=== PATIENT | female | born 1965 | race Caucasian/White ===

== ENCOUNTER 2017-03-18 13:51 | Emergency (ER) | payer MEDICAID, SELFPAY | END 2017-03-18 15:17 | disposition home or self-care (01) | PROVIDERS: Emergency Provider Nurse Practitioner Family; Family Provider Emergency Medicine; Visit Provider Nurse Practitioner Family | DX: J10.1 Influenza due to other identified influenza virus with other respiratory manifestations (principal); F17.210 Nicotine dependence, cigarettes, uncomplicated; K21.9 Gastro-esophageal reflux disease without esophagitis; I10 Essential (primary) hypertension; E78.5 Hyperlipidemia, unspecified; J45.909 Unspecified asthma, uncomplicated | CPT/HCPCS: 87804; 99201 ==

== ENCOUNTER 2017-05-11 08:31 | Emergency (ER) | payer MEDICAID, SELFPAY ==
[2017-05-11 08:43] VITALS: BMI 36.6
[2017-05-11 08:52] VITALS: BP 141/84; PULSE 96; RESP 18; TEMP 37; O2SAT 96; BMI 36.6
--- NOTE | 2017-05-11 08:56 | XR_ITS ---
XR chest 2V HISTORY: ITS.REASON: cough and soa ORDERING PHYSICIAN: Tabitha Dowd MD PATIENT AGE: 51 years COMPARISON: 10/08/16 FINDINGS: The cardiomediastinal silhouette and pulmonary vascularity are within normal limits. The lungs are clear without infiltrates, suspicious nodules, or pleural effusions. The right hemidiaphragm is slightly elevated nonspecific. No acute bony abnormalities. IMPRESSION: No acute finding
[2017-05-11 09:00] VITALS: PULSE 90; PULSE 92; O2SAT 95
[2017-05-11 10:05] LABS: Strep Scrn Group A (Rapid) Negative (Negative)
--- NOTE | 2017-05-11 10:29 | PC.NURSE ---
lab at bedside
[2017-05-11 10:46] LABS: Basophils # 0.1 K/mm3 (0-0.2); Basophils % 0.7 % (0.1-2.0); Eosinophils # 0.4 K/mm3 (0.0-0.4); Eosinophils % 5.9 % (0.1-12.0); Hematocrit 40.3 % (37.0-47.0); Hemoglobin 13.3 g/dL (12.2-16.2); Lymphocytes # 1.6 K/mm3 (0.7-4.5); Lymphocytes % 22.3 K/mm3 (10-50); Mean Corpuscular HGB Conc 32.9 g/dL (31.8-35.4); Mean Corpuscular Hemoglobin 28.1 pg (27.0-31.2); Mean Corpuscular Volume 85.3 fl (81-99); Mean Platelet Volume 8.4 fl (7.4-10.4); Monocytes # 0.3 K/mm3 (0.1-1.0); Monocytes % 4.4 % (1.7-9.3); Neutrophils # 4.9 K/mm3 (1.8-7.8); Neutrophils % 66.6 % (37.0-80.0); Platelet Count 258 K/mm3 (142-424); Red Blood Count 4.73 M/mm3 (4.20-5.40); Red Cell Distribution Width 13.7 % (11.5-17.5); White Blood Count 7.3 K/mm3 (4.8-10.8)
[2017-05-11 11:03] LABS: Alanine Aminotransferase 23 U/L (12-78); Albumin Level 3.5 gm/dL (3.4-5.0); Alkaline Phosphatase 104 U/L (46-116); Anion Gap 13.6 mEq/L (5-15); Aspartate Amino Transferase 9 U/L (15-37); Bilirubin,Total 0.2 mg/dL (0.2-1.0); Blood Urea Nitrogen 13 mg/dL (7-18); Calcium 8.8 mg/dL (8.5-10.1); Carbon Dioxide 28 mmol/L (21.0-32.0); Chloride 105 mmol/L (98-107); Creatinine Clearance Estimated 158 mL/min (0-300); Creatinine,Serum 0.59 mg/dL (0.55-1.02); Estimated Glomerular Filt Rate 107 ml/min (>60); GFR (African American) 129 ML/MIN (>60); Globulin 3.6 gm/dl (1.3-3.2); Glucose 97 mg/dL (74-106); Potassium 3.6 mmoL/L (3.5-5.1); Sodium 143 mmol/L (136-145); Total Protein,Serum 7.1 gm/dL (6.4-8.2); Troponin I < 0.02 ng/ml (0.00-0.06)
--- NOTE | 2017-05-11 11:50 | HMH.EDSOB ---
ED Disposition Clinical Impression: COPD exacerbation Disposition: Home, Self-Care Condition on Discharge: Good Additional Instructions: 1- avoid smoke , smoking and smokers. 2- use combivent inhaler. 3- medrol dose pack 4- tessalon peals. 5- pepcid 6- bactrim DS po BID. 7- you lie 2 blocks away feel free to return any time. Dr. Dowd Referrals: David Montes MD [Primary Care Provider] - - Critical Care Critical Care Time: No Attestation: On 05/11/17, the high probability of a clinically significant, sudden or life threatening deterioration of the following system(s) required my full and direct attention, intervention and personal management. The time I documented below is in addition to time spent performing reported procedures but includes the following listed in this critical care notation. Medical Decision Making - Medical Records Medical records reviewed: Yes: I reviewed the patient's medical records. Vital Signs: 05/11/17 08:52 05/11/17 09:00 Temperature 98.6 F Temperature Source Oral Pulse Rate 92 H Pulse Rate [Left] 96 H Respiratory Rate 18 Blood Pressure [Left Arm] 141/84 Blood Pressure Mean [Left Arm] 103 Blood Pressure Source [Left Arm] Automatic Cuff Blood Pressure Position [Left Arm] Supine 02 Sat by Pulse Oximetry 96 95 Oxygen Delivery Method Room Air Room Air - Lab Data Lab Results 05/11/17 08:52: Influenza Type A Ag Negative, Influenza Type B Ag Negative 05/11/17 09:30: Group A Strep Rapid Negative 05/11/17 10:29: WBC 7.3, RBC 4.73, Hgb 13.3, Hct 40.3, MCV 85.3, MCH 28.1, MCHC 32.9, RDW 13.7, Plt Count 258, MPV 8.4, Neut % (Auto) 66.6, Lymph % (Auto) 22.3, [place] % (Auto) 4.4, Eos % (Auto) 5.9, Baso % (Auto) 0.7, Neut # (Auto) 4.9, Lymph # (Auto) 1.6, [place] # (Auto) 0.3, Eos # (Auto) 0.4, Baso # (Auto) 0.1 05/11/17 10:29: Sodium 143, Potassium 3.6, Chloride 105, Carbon Dioxide 28, Anion Gap 13.6, BUN 13, Creatinine 0.59, Estimated Creat Clear 158, Estimated GFR 107, Est GFR ( Amer) 129, Glucose 97, Calcium 8.8, Total Bilirubin 0.2, AST 9 L, ALT 23, Alkaline Phosphatase 104, Troponin I < 0.02, Total Protein 7.1, Albumin 3.5, Globulin 3.6 H, Albumin/Globulin Ratio 1.0 L Result diagrams: 05/11/17 10:29 05/11/17 10:29 Orders (Tests/Meds): ED MEDICATIONS Generic Name Dose Route Start Last Admin Trade Name Freq PRN Reason Stop Dose Admin Albuterol/Ipratropium 3 ml 05/11/17 09:00 Duoneb 3ml [facility] 06/10/17 08:59 Q1H HEVER Discontinued Medications Generic Name Dose Route Start Last Admin Trade Name Freq PRN Reason Stop Dose Admin Albuterol/Ipratropium 3 ml 05/11/17 08:47 05/11/17 09:00 Duoneb 3ml [facility] 05/11/17 08:48 3 ml ONCE ONE Administration Famotidine 20 mg 05/11/17 08:56 05/11/17 10:25 Pepcid 20mg/2ml Vial IV 05/11/17 08:57 20 mg ONCE ONE Administration Methylprednisolone Sodium Succinate 125 mg 05/11/17 08:56 05/11/17 10:25 Solu-Medrol 125mg/2ml Vial IV 05/11/17 08:57 125 mg ONCE ONE Administration Sodium Chloride 10 ml 05/11/17 09:24 Saline Flush 10ml Syringe IV 05/11/17 09:25 ONCE ONE ORDERS Category Date Time Status Strep Screen Confirmation Stat Micro 05/11/17 09:30 Received - Radiology Data #1 Image(s): Chest Image Reviewed: Yes I reviewed the patient's radiology results, Yes I reviewed the patient's radiology image, Yes I have reviewed radiologist's interpretation Preliminary Findings: Normal/NAD - Antoni Inquiry Pt receiving controlled substance: No Antoni was queried for this patient: No Medical Decision Making Narrative: After the patient was given her steroids and DuoNeb she better. With her labs within normal limits and her chest x-ray was negative she opted for outpatient treatment. Resp/SOB HPI - General Chief Complaint: Shortness of Breath/Dyspnea Stated Complaint: SOA Mode of Arrival: Ambulatory Limitation
--- NOTE | 2017-05-11 11:53 | ED_ITS ---
ED Disposition Clinical Impression: COPD exacerbation Disposition: Home, Self-Care Condition on Discharge: Good Additional Instructions: 1- avoid smoke , smoking and smokers. 2- use combivent inhaler. 3- medrol dose pack 4- tessalon peals. 5- pepcid 6- bactrim DS po BID. 7- you lie 2 blocks away feel free to return any time. Dr. Dowd Referrals: David Montes MD [Primary Care Provider] - - Critical Care Critical Care Time: No Attestation: On 05/11/17, the high probability of a clinically significant, sudden or life threatening deterioration of the following system(s) required my full and direct attention, intervention and personal management. The time I documented below is in addition to time spent performing reported procedures but includes the following listed in this critical care notation. Medical Decision Making - Medical Records Medical records reviewed: Yes: I reviewed the patient's medical records. Vital Signs: 05/11/17 08:52 05/11/17 09:00 Temperature 98.6 F Temperature Source Oral Pulse Rate 92 H Pulse Rate [Left] 96 H Respiratory Rate 18 Blood Pressure [Left Arm] 141/84 Blood Pressure Mean [Left Arm] 103 Blood Pressure Source [Left Arm] Automatic Cuff Blood Pressure Position [Left Arm] Supine 02 Sat by Pulse Oximetry 96 95 Oxygen Delivery Method Room Air Room Air - Lab Data Lab Results 05/11/17 08:52: Influenza Type A Ag Negative, Influenza Type B Ag Negative 05/11/17 09:30: Group A Strep Rapid Negative 05/11/17 10:29: WBC 7.3, RBC 4.73, Hgb 13.3, Hct 40.3, MCV 85.3, MCH 28.1, MCHC 32.9, RDW 13.7, Plt Count 258, MPV 8.4, Neut % (Auto) 66.6, Lymph % (Auto) 22.3 , [place] % (Auto) 4.4, Eos % (Auto) 5.9, Baso % (Auto) 0.7, Neut # (Auto) 4.9, Lymph # (Auto) 1.6, [place] # (Auto) 0.3, Eos # (Auto) 0.4, Baso # (Auto) 0.1 05/11/17 10:29: Sodium 143, Potassium 3.6, Chloride 105, Carbon Dioxide 28, Anion Gap 13.6, BUN 13, Creatinine 0.59, Estimated Creat Clear 158, Estimated GFR 107, Est GFR ( Amer) 129, Glucose 97, Calcium 8.8, Total Bilirubin 0.2, AST 9 L, ALT 23, Alkaline Phosphatase 104, Troponin I < 0.02, Total Protein 7.1, Albumin 3.5, Globulin 3.6 H, Albumin/Globulin Ratio 1.0 L Result diagrams: 05/11/17 10:29 05/11/17 10:29 Orders (Tests/Meds): ED MEDICATIONS Generic Name Dose Route Start Last Admin Trade Name Freq PRN Reason Stop Dose Admin Albuterol/Ipratropium 3 ml 05/11/17 09:00 Duoneb 3ml Neb 06/10/17 08:59 Q1H HEVER Discontinued Medications Generic Name Dose Route Start Last Admin Trade Name Freq PRN Reason Stop Dose Admin Albuterol/Ipratropium 3 ml 05/11/17 08:47 05/11/17 09:00 Duoneb 3ml Neb 05/11/17 08:48 3 ml ONCE ONE Administration Famotidine 20 mg 05/11/17 08:56 05/11/17 10:25 Pepcid 20mg/2ml Vial IV 05/11/17 08:57 20 mg ONCE ONE Administration Methylprednisolone Sodium Succinate 125 mg 05/11/17 08:56 05/11/17 10:25 Solu-Medrol 125mg/2ml Vial IV 05/11/17 08:57 125 mg ONCE ONE Administration Sodium Chloride 10 ml 05/11/17 09:24 Saline Flush 10ml Syringe IV 05/11/17 09:25 ONCE ONE ORDERS Category Date Time Status Strep Screen Conf
[2017-05-11 12:32] VITALS: BP 147/78; PULSE 84; RESP 18; TEMP 37.1; O2SAT 98
--- NOTE | 2017-05-11 12:34 | PC.NURSE ---
staff were unable to start iv after several attempts x 3 staff. meds given IM with OK from Dr. Dowd
== END 2017-05-11 12:34 | disposition home or self-care (01) ==
PROVIDERS: Emergency Provider Emergency Medicine; Family Provider Emergency Medicine; PCP Emergency Medicine
DX: J44.1 Chronic obstructive pulmonary disease with (acute) exacerbation (principal)
CPT/HCPCS: 71046; 80053; 84484; 85025; 87275; 87276; 87430; 96372; 99282

== ENCOUNTER 2017-06-20 17:57 | Emergency (ER) | payer MEDICAID, SELFPAY ==
[2017-06-20 18:05] VITALS: BP 153/76; PULSE 91; RESP 20; TEMP 37.4; O2SAT 93; BMI 36.6
--- NOTE | 2017-06-20 18:12 | XR_ITS ---
XR chest 2V HISTORY: ITS.REASON: COUGHING, FEVER ORDERING PHYSICIAN: Danny Calero PATIENT AGE: 51 years COMPARISON: 05/11/2017 FINDINGS: The cardiomediastinal silhouette and pulmonary vascularity are within normal limits. The lungs are clear without infiltrates, suspicious nodules, or pleural effusions. No acute bony abnormalities. IMPRESSION: Negative chest, no acute finding
[2017-06-20 18:14] LABS: UTC Influenza A Antigen Negative (Negative); UTC Influenza B Antigen Positive (Negative)
--- NOTE | 2017-06-20 18:34 | HMH.EDUTC ---
[facility] [place] Disposition Clinical Impression: Influenza B Disposition: Home, Self-Care Condition on Discharge: Good Instructions: DI for Influenza -- Adult Additional Instructions: * Start Tamiflu today if you are going to take it. Discussed risks, side effects, risk of allergic reaction, and possible benefits. We even discussed hallucinations and uncontrollable fevers. still wants tamiflu. Encouraged to monitor closely.. * Lots of rest * Inhaler every 4-6 hours as needed like we discussed. Should help open airways and improve cough, wheezing, due to your asthma and influenza. * Increase fluids, water, gatorade, powerade, pedialyte if /toddler/child * Monitor Temp. Tylenol every 4 hours as needed no more then 5 times a day or 4000mg in 24 hours and/or ibuprofen every 6 hours as needed no more then 3200mg in 24 hours (as long as your primary care doctor has told you that it is ok to take both) for fever/aches/pain. ER if fever no less than 101 despite tylenol and Ibuprofen * OTC cold/flu/sinus medication is ok but pick one. Coriciden HBP is the best/safest one to choose due to your high blood pressure. Do not take multiple different ones as they have similar ingredients and you can overdose on cold medication. * You (or your child) are contagious until no fever, aches, chills x 24 hours without medication for symptoms. Prescriptions: Albuterol Sulfate [Albuterol HFA Inhaler] 1 - 2 puffs IH Q4-6H PRN #1 inh PRN Reason: Shortness Of Breath Or Wheezing Oseltamivir Phosphate [Tamiflu 75mg Capsule] 75 mg PO BID #10 cap Referrals: David Montes MD [Primary Care Provider] - (Follow up IMMEDIATELY for new or worsening symptoms, improvement followed by suddenly feeling worse OR no noticeable improvement over the next 48-72 hours. 911 for difficulty breathing ) Forms: Work/School Release Time of Disposition: 18:54 Medical Decision Making - Antoni Inquiry Pt receiving controlled substance: No Vital Signs: 06/20/17 18:05 06/20/17 18:50 Temperature 99.3 F 99.3 F Temperature Source Temporal Artery Scan Pulse Rate 91 H Pulse Rate [Brachial] 91 H Respiratory Rate 20 20 Blood Pressure 153/76 Blood Pressure [Right Arm] 153/76 Blood Pressure Mean [Right Arm] 101 Blood Pressure Source [Right Arm] Automatic Cuff Blood Pressure Position [Right Arm] Sitting 02 Sat by Pulse Oximetry 93 L Oxygen Delivery Method Room Air - Lab Data Lab results reviewed: Yes: I reviewed the patient's lab results. Lab Results 06/20/17 18:06: Influenza Type A Ag Negative, Influenza Type B Ag Positive A Orders (Tests/Meds): ORDERS Category Date Time Status Chest XR 2 view (NOT portable) [XR chest 2V] Stat Exams 06/20/17 18:12 Taken [facility] [place] HPI - General Stated complaint: sore throat,body pain Time Seen by Provider: 06/20/17 18:10 Mode of Arrival: Ambulatory Source of Information: Patient Limitations: No Limitations Description of Symptoms (Recalled from Triage Doc. by RN): FEVER, COUGHING BAD, NAUSEATED 2-3 DAYS. WHEEZING IS NOTED. HEENT Symptoms (Recalled from RN notes): Yes Resp Symptoms (Recalled from RN notes): Yes Skin Symptoms (Recalled from RN notes): No MS Symptoms (Recalled from RN notes): No Functional Status (Recalled from RN notes): NA - History of Present Illness Provider Complaint: Here w/ spouse due to not feeling well. Fever, nonprod cough, nausea, aches, chills starting yesterday. Worse today. Wheezing intermittently but hx of asthma (sees Dr. harvey) and has been out of albuterol x weeks. Using breo as prescribed. Hasn't taken or tried anything else for symptoms. - Related Data Home Medications Medication Instructions Recorded Confirmed Albuterol Sulfate [Albuterol HFA 1 - 2 puffs IH Q4-6H PRN 05/11/17 06/20/17 Inhaler] Amlodipine Besylate [Norvasc 10mg 10 mg PO DAILY 05/11/17 06/20/17 tablet] Lisinopril/Hydrochlorothiazide 1 tab PO DAILY 05/11/17 06/20/17 [Lisinopril-Hctz 10-
[2017-06-20 18:50] VITALS: BP 153/76; PULSE 91; RESP 20; TEMP 37.4
== END 2017-06-20 18:55 | disposition home or self-care (01) ==
PROVIDERS: Emergency Provider Nurse Practitioner Family; Family Provider Emergency Medicine; PCP Emergency Medicine
DX: J11.1 Influenza due to unidentified influenza virus with other respiratory manifestations (principal); I10 Essential (primary) hypertension; J45.909 Unspecified asthma, uncomplicated
CPT/HCPCS: 71046; 87804; 99202

== ENCOUNTER → 2017-06-29 08:03 | Outpatient (CLI) | payer MEDICAID, SELFPAY ==
[2017-06-29 08:33] LABS: Basophils # 0.1 K/mm3 (0-0.2); Eosinophils # 0.4 K/mm3 (0.0-0.4); Eosinophils % 5.2 % (0.1-12.0); Hematocrit 41.2 % (37.0-47.0); Hemoglobin 13.1 g/dL (12.2-16.2); Lymphocytes # 1.9 K/mm3 (0.7-4.5); Lymphocytes % 26.2 K/mm3 (10-50); Mean Corpuscular HGB Conc 31.9 g/dL (31.8-35.4); Mean Corpuscular Hemoglobin 27.8 pg (27.0-31.2); Mean Corpuscular Volume 87.1 fl (81-99); Mean Platelet Volume 7.9 fl (7.4-10.4); Monocytes # 0.4 K/mm3 (0.1-1.0); Monocytes % 5.9 % (1.7-9.3); Neutrophils # 4.6 K/mm3 (1.8-7.8); Neutrophils % 61.7 % (37.0-80.0); Platelet Count 348 K/mm3 (142-424); Red Blood Count 4.72 M/mm3 (4.20-5.40); Red Cell Distribution Width 13.7 % (11.5-17.5); White Blood Count 7.4 K/mm3 (4.8-10.8)
[2017-06-29 09:14] LABS: Alanine Aminotransferase 18 U/L (12-78); Albumin Level 3.4 gm/dL (3.4-5.0); Albumin/Globulin Ratio 1.1 (1.1-1.8); Alkaline Phosphatase 92 U/L (46-116); Anion Gap 10.8 mEq/L (5-15); Aspartate Amino Transferase 12 U/L (15-37); Bilirubin,Total 0.2 mg/dL (0.2-1.0); Blood Urea Nitrogen 17 mg/dL (7-18); Calcium 8.9 mg/dL (8.5-10.1); Carbon Dioxide 29 mmol/L (21.0-32.0); Chloride 106 mmol/L (98-107); Chol/HDL Ratio 5.2 (1-3.5); Cholesterol 223 mg/dL (140-200); Creatinine,Serum 0.63 mg/dL (0.55-1.02); Estimated Glomerular Filt Rate 99 ml/min (>60); Free T4 (Free Thyroxine) 1.15 ng/dl (0.76-1.46); GFR (African American) 120 ML/MIN (>60); Globulin 3.2 gm/dl (1.3-3.2); Glucose 113 mg/dL (74-106); HDL Cholesterol 43 mg/dL (29-89); LDL Cholesterol 129 mg/dL (0-130); Potassium 3.8 mmoL/L (3.5-5.1); Sodium 142 mmol/L (136-145); Thyroid Stimulating Hormone 1.85 uIU/ml (0.358-3.740); Total Protein,Serum 6.6 gm/dL (6.4-8.2); Triglycerides 257 mg/dL (30-200); VLDL Cholesterol 51 mg/dL (0-40)
[2017-07-03 02:06] LABS: 1,25-Dihydroxy, Vitamin D-2 <10 pg/mL (.)
[2017-07-03 03:38] LABS: 1,25 Dihydroxy Vitamin D 62 pg/mL (.); 1,25-Dihydroxy, Vitamin D-3 61 pg/mL (.)
== END ==
PROVIDERS: PCP Nurse Practitioner Family; Visit Provider Nurse Practitioner Family
DX: R53.83 Other fatigue (principal)
CPT/HCPCS: 36415; 80053; 80061; 82652; 84439; 84443; 85025

== ENCOUNTER → 2017-07-11 14:38 | Outpatient (POV) | payer MEDICAID, SELFPAY | PROVIDERS: Visit Provider Internal Medicine | DX: Z00.00 Encounter for general adult medical examination without abnormal findings (principal) ==

== ENCOUNTER → 2018-01-23 08:56 | Outpatient (POV) | payer MEDICAID, SELFPAY | PROVIDERS: Visit Provider Internal Medicine | DX: Z00.00 Encounter for general adult medical examination without abnormal findings (principal) ==

== ENCOUNTER → 2018-08-23 09:17 | Outpatient (CLI) | payer MEDICAID, SELFPAY ==
--- NOTE | 2018-08-23 09:24 | XR_ITS ---
XR shoulder LT min 2V HISTORY: Shoulder pain ITS.REASON: grashy, axillary and supraspinatus views ORDERING PHYSICIAN: Jerzy Saba MD PATIENT AGE: 53 years Comparison: None FINDINGS: There is mild subacromial stenosis with some minimal cortical irregularity involving the greater tuberosity which may be seen with rotator cuff disease. No fracture or dislocation. Small area of sclerosis is present in the mid aspect of the scapula laterally. IMPRESSION: Mild subacromial stenosis with cortical irregularity of the greater tuberosity which may be seen with rotator cuff disease
== END ==
PROVIDERS: PCP Emergency Medicine; Visit Provider Orthopaedic Surgery
DX: M25.512 Pain in left shoulder (principal)
CPT/HCPCS: 73030

== ENCOUNTER → 2018-08-31 08:15 | Outpatient (CLI) | payer MEDICAID, SELFPAY ==
--- NOTE | 2018-08-31 08:17 | MR_ITS ---
MR shoulder LT wo con HISTORY:Left arm weakness, pain, limited range of motion ITS.REASON: evaluate for rotator cuff tear ORDERING PHYSICIAN: Jerzy Saba MD PATIENT AGE: 53 years Comparison: 08/23/2018 TECHNIQUE: Standard multiplanar multiecho sequences are performed without contrast. FINDINGS: Study is somewhat limited due to patient body habitus and decreased [id number] ratio. There is full-thickness tear of the supraspinatus tendon. There may be some intact fibers of the tendon posteriorly. The bulk of the tendon however does show full-thickness tear. No significant retraction of the musculotendinous fibers. There is subacromial stenosis with low-lying acromion. Small amount fluid is present in the subdeltoid region. There is some irregularity head which can be seen with chronic rotator cuff disease. The infraspinatus tendon does appear intact. The subscapularis and teres minor tendons have an unremarkable appearance. There is tendinopathy/tendinosis of the infraspinatus tendon. Bicipital tendon does appear place. No obvious labral tears. IMPRESSION: There is full-thickness tear and possibly a complete tear of the supraspinatus tendon there may be a few intact fibers posteriorly. There is a low-lying acromion. Tendinopathy/tendinosis of the infraspinatus tendon
== END ==
PROVIDERS: PCP Emergency Medicine; Visit Provider Orthopaedic Surgery
DX: M25.512 Pain in left shoulder (principal)
CPT/HCPCS: 73221

== ENCOUNTER → 2018-10-16 14:11 | Outpatient (POV) | payer MEDICAID, SELFPAY | PROVIDERS: Visit Provider Internal Medicine | DX: Z00.00 Encounter for general adult medical examination without abnormal findings (principal) ==

== ENCOUNTER → 2019-05-15 16:11 | Outpatient (CLI) | payer MEDICAID, SELFPAY ==
--- NOTE | 2019-05-15 16:11 | MM_ITS ---
PROCEDURE: MM DIG SCREENING MAMM BI W/CAD CLINICAL INDICATION: screening There is no personal or family history of breast cancer. COMPARISON: No exams were available for comparison TECHNIQUE: Standard CC and MLO images and 3D Tomosynthesis was obtained. R2 CAD reviewed. FINDINGS: Minimal scattered fibroglandular densities are seen in both breast on a background of fatty breast parenchyma. There is a tiny asymmetric nodular density lower outer quadrant left breast with smooth borders. This has benign features. Since this is a baseline study recommend the patient return for six-month follow-up mammogram left breast to evaluate for interval stability. There are no suspicious microcalcifications. There are fatty replaced nodes in both axilla. IMPRESSION: Fibrofatty parenchyma with small benign-appearing asymmetric density left breast BI-RAD Category: 3 Probably Benign Finding Short Term Follow-up FOLLOW-UP: 6M 6Month Follow-up (A letter has been sent to the patient regarding results of the study.) Dictated by: Dr. Jaxon Tavarez MD 05/16/2019 12:[address] Jaxon Tavarez MD in [place] 05/16/2019 12:22
== END ==
PROVIDERS: PCP Emergency Medicine; Visit Provider Emergency Medicine
DX: Z12.31 Encounter for screening mammogram for malignant neoplasm of breast (principal)
CPT/HCPCS: 77063; 77067

== ENCOUNTER 2019-07-09 10:30 | Emergency (ER) | payer MEDICAID, SELFPAY ==
[2019-07-09 10:41] VITALS: BP 157/98; PULSE 98; RESP 24; TEMP 36.9; O2SAT 96; BMI 40.2
--- NOTE | 2019-07-09 10:47 | XR_ITS ---
PROCEDURE: XR CHEST 2V CLINICAL HISTORY: sob Shortness of breath COMPARISON: CXR2V XR chest 2V from 05/11/2017 CXR2V XR chest 2V from 06/20/2017 XR CHEST 2V from 04/29/2019 FINDINGS: The cardiomediastinal silhouette and pulmonary vascularity are within normal limits. The lungs are clear without infiltrates, suspicious nodules, or pleural effusions. No acute bony abnormalities. IMPRESSION: No acute findings. Dictated by: Pietro Costa MD 07/09/2019 11:28 Electronically signed by Pietro Costa MD in [place] 07/09/2019 11:28
--- NOTE | 2019-07-09 10:53 | HMH.EDUTC ---
[facility] [place] Disposition Clinical Impression: Asthma with exacerbation Qualifiers: Asthma severity: mild Asthma persistence: unspecified Qualified Code(s): J45.901 - Unspecified asthma with (acute) exacerbation Disposition: Home, Self-Care Condition on Discharge: Good Instructions: Asthma -- Adult, DI for Asthma -- Adult Additional Instructions: Use Nebulizer as prescribed at home along with your inhaler *Try to avoid known allergy/asthma triggers Return if needed Straight to ER if any life threatening symptoms Follow up with PCP if symptoms persist or worsen in the next 48-72 hours Referrals: David Montes MD [Primary Care Provider] - As needed Time of Disposition: 11:33 Medical Decision Making - Antoni Inquiry Pt receiving controlled substance: No Antoni was queried for this patient: No Vital Signs: 07/09/19 10:41 Temperature 98.5 F Temperature Source Oral Pulse Rate [Right Brachial] 98 H Respiratory Rate 24 Blood Pressure [Right Arm] 157/98 H Blood Pressure Mean [Right Arm] 117 Blood Pressure Source [Right Arm] Automatic Cuff Blood Pressure Position [Right Arm] Sitting 02 Sat by Pulse Oximetry 96 Oxygen Delivery Method Room Air Orders (Tests/Meds): ED MEDICATIONS Discontinued Medications Generic Name Dose Route Start Last Admin Trade Name Freq PRN Reason Stop Dose Admin Albuterol Sulfate 7 puffs 07/09/19 11:03 07/09/19 11:08 Proventil-Hfa 90mcg/Puff Inhaler IH 07/09/19 11:04 7 inhalation DIRECTED ONE Administration Protocol Methylprednisolone Sodium Succinate 125 mg 07/09/19 11:13 07/09/19 11:21 Solu-Medrol 125mg/2ml Vial IM 07/09/19 11:14 125 mg ONCE ONE Administration Miscellaneous 1 unit 07/09/19 11:03 07/09/19 11:09 Aerochamber/Optihaler MC 07/09/19 11:04 1 unit ONCE ONE Administration ORDERS Category Date Time Status CXR 2 view (NOT portable) [XR chest 2V] Stat Exams 07/09/19 10:47 Ordered - Radiology Data #1 Image(s): Chest Image Reviewed: Yes I reviewed the patient's radiology image Preliminary Findings: Normal/NAD - Reevaluation(s) Time: 11:06 Reevaluation #1: related to COVID19 precautions in lieu of duo neb patient was given alubuteral 7accuations in aerochamber breath for 1 min then repeat to give appropriate amount of medication as neb treatment. Patient tolerated well Time: 11:23 Reevaluation #3: Patient reports that she feels like she is breathing a lot better and no longer wheezing Time reevaluation 3: 11:33 Reevaluation #2: Patient states that she is still feeling much better wheezing still diminished patient dc'd home [facility] [place] HPI - General Stated complaint: SOA Time Seen by Provider: 07/09/19 10:53 Mode of Arrival: Family Vehicle Source of Information: Patient Limitations: No Limitations Description of Symptoms (Recalled from Triage Doc. by RN): C/O ASTHMA ATTACK THAT STARTED THIS AM. DENIES FEVER,SORE THROAT OR BODY ACHES HEENT Symptoms (Recalled from RN notes): No Resp Symptoms (Recalled from RN notes): Yes Skin Symptoms (Recalled from RN notes): No MS Symptoms (Recalled from RN notes): No Functional Status (Recalled from RN notes): N/A - History of Present Illness Provider Complaint: Patient states that she has a history of asthma and several people in her neighborhood has been working outside cutting grass etc States that this morning her grandson was crying and they was outside and she wasnt sure if anxiety caused her to have an asthma attack or if it was the fresh cut grass but she started having an asthma attack States that she used her inhaler and it helped some but was still having some wheezing and her son wanted her to come in and get checked States that she hasnt had any fever, no chills, no sore throat and no other symptoms associated with COVID19 and denies known exposure States that she felt fine up until her attack earlier - Related Data Home Medications Medication Instructions Recorded
[2019-07-09 11:35] VITALS: BP 157/98; PULSE 92; RESP 20; TEMP 36.9; O2SAT 97
== END 2019-07-09 11:36 | disposition home or self-care (01) ==
PROVIDERS: Emergency Provider Nurse Practitioner; PCP Emergency Medicine
DX: J45.901 Unspecified asthma with (acute) exacerbation (principal); I10 Essential (primary) hypertension; K21.9 Gastro-esophageal reflux disease without esophagitis; Z88.2 Allergy status to sulfonamides
CPT/HCPCS: 71046; 96372; 99202

== ENCOUNTER → 2019-11-27 12:58 | Outpatient (CLI) | payer MEDICAID, SELFPAY ==
--- NOTE | 2019-11-27 | US_ITS ---
PROCEDURE: US BREAST LT COMPLETE CLINICAL INDICATION: Six-month follow-up left mammogram COMPARISON: Baseline mammogram 05/15/2019 FINDINGS: Ultrasound imaging shows no suspicious cystic or solid lesion. There are no findings to suggest architectural distortion. There are couple normal appearing nodes in the axilla. IMPRESSION: Unremarkable ultrasound exam left breast, recommend the patient return to normal normal yearly screening mammograms of both breast in April 2020 Dictated by: Dr. Jaxon Tavarez MD 12/18/2019 10:21 Dr. Jaxon Tavarez MD in [place] 12/18/2019 10:21
--- NOTE | 2019-11-27 12:59 | MM_ITS ---
PROCEDURE: MM DIG MAMM DX UNILAT LT CAD Digital Breast Tomosynthesis Included CLINICAL INDICATION: Abnormal mamm COMPARISON: MG MM DIG SCREENING MAMM BI W/CAD from 05/15/2019 TECHNIQUE: Standard CC and MLO images and 3D Tomosynthesis was obtained. R2 CAD reviewed. Compression MLO and CC views were obtained. FINDINGS: The tiny nodular density lower outer quadrant is stable and unchanged from the baseline exam 05/15/2019. In addition there is minimal asymmetric glandular elements upper-outer quadrant which are stable with no suspicious findings. There is a stable partially fatty replaced node low in the axilla. IMPRESSION: Stable benign-appearing small nodular density left breast, recommend the patient continue with yearly screening mammography BI-RAD Category: 2 Benign Finding(s) FOLLOW-UP: 6M 6Month Follow-up to return to normal yearly screening schedule (A letter has been sent to the patient regarding results of the study.) Dictated by: Dr. Jaxon Tavarez MD 11/29/2019 09:17 Dr. Jaxon Tavarez MD in [place] 11/29/2019 09:17
== END ==
PROVIDERS: PCP Emergency Medicine; Visit Provider Emergency Medicine
DX: R92.8 Other abnormal and inconclusive findings on diagnostic imaging of breast (principal)
CPT/HCPCS: 76641; 77061; 77065; G0279

== ENCOUNTER 2020-02-20 21:02 | Emergency (ER) | payer MEDICAID, SELFPAY ==
[2020-02-20 21:03] VITALS: BP 173/111; PULSE 115; RESP 95; TEMP 37.1; O2SAT 95; BMI 36.6
--- NOTE | 2020-02-20 21:27 | XR_ITS ---
PROCEDURE: XR CHEST 2V CLINICAL HISTORY: SOA COMPARISON: CR CXR2V XR chest 2V from 06/20/2017 CR XR CHEST 2V from 04/29/2019 CR XR CHEST 2V from 07/09/2019 FINDINGS: The cardiomediastinal silhouette and pulmonary vascularity are within normal limits. The lungs are clear without infiltrates, suspicious nodules, or pleural effusions. No acute bony abnormalities. There degenerative changes of both shoulders bilateral high-riding humeral heads and prominent subacromial stenosis. IMPRESSION: No acute findings. Dictated by: Dr. Jaxon Tavarez MD 02/21/2020 07:50 Dr. Jaxon Tavarez MD in [place] 02/21/2020 07:50
--- NOTE | 2020-02-20 21:27 | HMH.EDSOB ---
ED Disposition Clinical Impression: Hypertensive urgency, Obesity (BMI 30-39.9) Reactive airway disease with acute exacerbation Qualifiers: Asthma severity: moderate Asthma persistence: persistent Qualified Code(s): J45.41 - Moderate persistent asthma with (acute) exacerbation Disposition: Home, Self-Care Condition on Discharge: Good Instructions: DI for Shortness of Breath Additional Instructions: use meds and see pcp monday and recheck if any problems Referrals: David Montes MD [Primary Care Provider] - - Critical Care Critical Care Time: No Attestation: On 02/20/20, the high probability of a clinically significant, sudden or life threatening deterioration of the following system(s) required my full and direct attention, intervention and personal management. The time I documented below is in addition to time spent performing reported procedures but includes the following listed in this critical care notation. Medical Decision Making - Medical Records Medical records reviewed: Yes: I reviewed the patient's medical records. - Antoni Inquiry Pt receiving controlled substance: No Vital Signs: 02/20/20 21:03 02/20/20 21:30 02/20/20 22:00 Temperature 98.7 F Temperature Source Oral Pulse Rate Pulse Rate [Left Radial] 115 H 108 H 102 H Respiratory Rate 95 H 17 17 Blood Pressure [Right Arm] 173/111 H 160/79 H 177/90 H Blood Pressure Mean [Right Arm] 131 106 119 Blood Pressure Source [Right Arm] Automatic Cuff Automatic Cuff Automatic Cuff Blood Pressure Position [Right Arm] Supine Supine Supine 02 Sat by Pulse Oximetry 95 94 L 97 Oxygen Delivery Method Room Air Room Air Nasal Cannula Oxygen Flow Rate (LPM) 2 02/20/20 22:16 02/20/20 22:30 02/20/20 23:15 Temperature Temperature Source Pulse Rate 104 H Pulse Rate [Left Radial] 94 H Respiratory Rate 17 Blood Pressure [Right Arm] 177/86 H Blood Pressure Mean [Right Arm] 116 Blood Pressure Source [Right Arm] Automatic Cuff Blood Pressure Position [Right Arm] Supine 02 Sat by Pulse Oximetry 94 L Oxygen Delivery Method Room Air Room Air Oxygen Flow Rate (LPM) - Lab Data Lab results reviewed: Yes: I reviewed the patient's lab results. Lab Results 02/20/20 21:26: Specimen Source Right radial, O2 % 21, ABG pH 7.41, ABG pCO2 38.2, ABG pO2 63.0 L, ABG HCO3 23.6, ABG Total CO2 24.8, ABG O2 Saturation 92, ABG Base Excess -1.0, Pietro Test Acceptable 02/20/20 21:40: WBC 9.9, RBC 5.28, Hgb 15.1, Hct 46.1, MCV 87.4, MCH 28.5, MCHC 32.6, RDW 14.7, Plt Count 313, MPV 8.1, Neut % (Auto) 60.4, Lymph % (Auto) 30.4, Mcpherson % (Auto) 4.8, Eos % (Auto) 3.3, Baso % (Auto) 1.1, Neut # (Auto) 6.0, Lymph # (Auto) 3.0, Mcpherson # (Auto) 0.5, Eos # (Auto) 0.3, Baso # (Auto) 0.1 02/20/20 21:40: Sodium 140, Potassium 3.8, Chloride 105, Carbon Dioxide 26, Anion Gap 12.8, BUN 16, Creatinine 0.80, Estimated Creat Clear 112, Estimated GFR 74, Est GFR ( Amer) 90, Glucose 153 H, Calcium 9.4, Total Bilirubin 0.3, Direct Bilirubin 0.1, Conjugated Bilirubin 0.0, Indirect Bilirubin 0.2, Unconjugated Bilirubin 0.2, AST 19, ALT 19, Alkaline Phosphatase 118, Troponin I < 0.01, Total Protein 6.6, Albumin 4.0, Procalcitonin 0.045 02/20/20 21:40: Lactate 1.7 02/20/20 21:40: NT-Pro-B Natriuret Pep 30.2 Result diagrams: 02/20/20 21:40 02/20/20 21:40 Orders (Tests/Meds): ED MEDICATIONS Generic Name Dose Route Start Last Admin Trade Name Freq PRN Reason Stop Dose Admin Sodium Chloride 1,000 mls @ 999 mls/hr 02/20/20 21:30 02/20/20 21:33 Sod Chlor 0.9% 1000ml Bag IV 02/20/20 22:30 999 mls/hr .Q1H1M HEVER Administration Sodium Chloride 8 ml 02/20/20 21:28 Sodium Chloride 0.9% 10ml Vial IV 03/21/20 21:27 NEEDED PRN dilute pepcid Discontinued Medications Generic Name Dose Route Start Last Admin Trade Name Freq PRN Reason Stop Dose Admin Albuterol/Ipratropium 3 ml 02/20/20 22:07 02/20/20 22:13 Albuterol/Ipratropium 3
[2020-02-20 21:30] VITALS: BP 160/79; PULSE 108; RESP 17; O2SAT 94
[2020-02-20 21:42] LABS: ABG HCO3 23.6 mmhg (22.0-26.0); ABG Oxygen Saturation 92 % (90-100); ABG PCO2 38.2 mmhg (35.0-45.0); ABG PH 7.41 mmol/L (7.35-7.45); ABG TCO2 24.8 mmhg (23-27)
[2020-02-20 21:43] LABS: Allen's Test Acceptable; Oxygen 21 %; Source Right Radial
--- NOTE | 2020-02-20 21:47 | ECG_ITS ---
APPROVED REPORT Exam: Resting ECG HR:104 bpm ECG Measurements Heart Rate 104 AXES AK 156 P 51 QRSd 76 QRS -14 QT 344 T 60 QTc 452 Conclusion Sinus tachycardia Isolated q in III Abnormal ECG Electronically signed by : Nathan Estrada, 02/24/2020 07:31:47
[2020-02-20 21:51] LABS: Basophils # 0.1 K/mm3 (0-0.2); Basophils % 1.1 % (0.1-2.0); Eosinophils # 0.3 K/mm3 (0.0-0.4); Eosinophils % 3.3 % (0.1-12.0); Hematocrit 46.1 % (37.0-47.0); Hemoglobin 15.1 g/dL (12.2-16.2); Lymphocytes % 30.4 % (10-50); Mean Corpuscular HGB Conc 32.6 g/dL (31.8-35.4); Mean Corpuscular Hemoglobin 28.5 pg (27.0-31.2); Mean Corpuscular Volume 87.4 fl (81-99); Mean Platelet Volume 8.1 fl (7.4-10.4); Monocytes # 0.5 K/mm3 (0.1-1.0); Monocytes % 4.8 % (1.7-9.3); Neutrophils % 60.4 % (37.0-80.0); Platelet Count 313 K/mm3 (142-424); Red Blood Count 5.28 M/mm3 (4.20-5.40); Red Cell Distribution Width 14.7 % (11.5-17.5); White Blood Count 9.9 K/mm3 (4.8-10.8)
[2020-02-20 22:00] VITALS: BP 177/90; PULSE 102; RESP 17; O2SAT 97
[2020-02-20 22:02] LABS: Lactic Acid 1.7 mmol/L (0.7-2.1)
[2020-02-20 22:07] LABS: Alanine Aminotransferase 19 U/L (12-78); Alkaline Phosphatase 118 U/L (38-126); Anion Gap 12.8 mEq/L (5-15); Aspartate Amino Transferase 19 U/L (14-36); Bilirubin,Direct 0.1 mg/dl (0.0-0.4); Bilirubin,Indirect 0.2 mg/dL (0.0-0.9); Bilirubin,Total 0.3 mg/dl (0.2-1.3); Bilirubin,Unconjugated 0.2 mg/dL (0.0-1.1); Blood Urea Nitrogen 16 mg/dl (7-17); Calcium 9.4 mg/dl (8.4-10.2); Carbon Dioxide 26 mmol/L (22.0-30.0); Chloride 105 mmol/L (98-107); Creatinine Clearance Estimated 112 mL/min (50-200); Estimated Glomerular Filt Rate 74 ml/min (>60); GFR (African American) 90 ML/MIN (>60); Glucose 153 mg/dl (74-100); Potassium 3.8 mmoL/L (3.5-5.1); Sodium 140 mmol/L (136-145); Total Protein,Serum 6.6 g/dl (6.3-8.2)
[2020-02-20 22:16] VITALS: PULSE 103; PULSE 104
[2020-02-20 22:22] LABS: Troponin I < 0.01 ng/ml (0.00-0.034)
[2020-02-20 22:24] LABS: Procalcitonin 0.045 ng/mL (0.0-2.0)
[2020-02-20 22:26] LABS: NT Pro Brain Natriuretic Pep. 30.2 pg/mL (0-125)
[2020-02-20 22:30] VITALS: BP 177/86; PULSE 94; RESP 17; O2SAT 94
[2020-02-20 23:21] LABS: Coronavirus 19 IgG Antibody Negative (Negative); Coronavirus 19 IgM Antibody Negative (Negative)
[2020-02-20 23:32] VITALS: BP 157/87; PULSE 105; RESP 20; TEMP 36.7; O2SAT 96
== END 2020-02-20 23:34 | disposition home or self-care (01) ==
PROVIDERS: Emergency Provider Emergency Medicine; PCP Emergency Medicine
DX: I16.0 Hypertensive urgency (principal); J45.41 Moderate persistent asthma with (acute) exacerbation; E66.9 Obesity, unspecified; Z68.36 Body mass index [BMI] 36.0-36.9, adult; K21.9 Gastro-esophageal reflux disease without esophagitis; Z79.899 Other long term (current) drug therapy
CPT/HCPCS: 71046; 80048; 80076; 82803; 83605; 83880; 84145; 84484; 85025; 86328; 87040; 93005; 96365; 96375; 99284

== ENCOUNTER → 2020-03-10 07:42 | Outpatient (CLI) | payer MEDICAID, SELFPAY ==
--- NOTE | 2020-03-10 | CA_ITS ---
APPROVED REPORT Exam: Pharmacologic Technologist: Vero Villanueva, Ht: 5 ft 2 in Wt: 236 lbs BSA: 2.05 m2 HR: 82 bpm BP: 196/94 mmHg Rhythm: NSR,LOW VOLTAGE QRS,POOR R WAVE PROGRESSION,CANNOT R/O OLD ANT. VT Medical History Medical History: HTN Medications: Amlodipine,,,,, Omeprazole,,,,, Lisinopril/HCTZ,,,,, Albuterol,,,,, FluTICASONE,,,,, Cardiac Risk Factors: HTN, FHX of CAD Stress Test Details Test: LEXISCAN HR Resting HR: 88 bpm Max Heart Rate (APMHR): 164 bpm Max HR Achieved: 125 bpm Target HR (85% APMHR): 139 bpm % of APMHR: 76 Recovery HR: 108 bpm BP Resting BP: 196.0/94.0 mmHg Max BP: 196.0/94.0 mmHg Recovery BP: 170.0/98.0 mmHg ECG Resting ECG: NSR,LOW VOLTAGE QRS,POOR R WAVE PROGRESSION,CANNOT R/O OLD ANT VT Clinical Exercise duration: 04:01 min Highest Stage Achieved: Stress ECG Conclusion DURING INFUSION PATIENT HAD NAUSEA AND MILD MALAISE. NO CP. NO ARRHYTHMIAS/ECTOPY. NO SIGNIFICANT ST-T CHANGES. UNREMARKABLE LEXISCAN STRESS. MYOVIEW IMAGES REPORTED SEPARATELY Test Summary REST . . . . . . . Sitting REST 06:40 . . 88 . 196/ 94 . . Stage 1 . . . . . . . Cardiolite injected Stage 1 01:00 . . 117 . . . . Stage 2 01:00 . . 115 . 187/ 99 . . Stage 3 01:00 . . 116 . 189/ 99 . . Stage 4 01:00 . . 110 . . . . Stage 4 01:01 . . 110 . . . Stop exercise at 04:01 RECOVERY 01:00 . . 112 . 192/ 91 . . RECOVERY 02:00 . . 103 . 170/ 98 . . RECOVERY 03:00 . . 102 . 170/ 98 . . RECOVERY 04:00 . . 102 . 192/ 99 . . RECOVERY 04:33 . . 103 . 191/ 90 . . Electronically signed by : Glen Morrissey, 03/11/2020 06:30:29
--- NOTE | 2020-03-10 07:43 | NM_ITS ---
APPROVED REPORT Exam: Nuclear Stress Test Indication: HTN, High cholesterol, Family history Patient Location: Outpatient Stress Tech: Kristi Novaknkson [place] Tech:Mary Anne Brand, ARRT, RT (R)(N) Ht: 5 ft 2 in Wt: 200 lbs Bra Size: 44D HR: 82 bpm BP: 196/94 mmHg BSA: 1.91 m2 BMI: 36.5 History: HTN, High cholesterol, Family history Procedure: Patient received a 0.4 mg of intravenous Lexiscan, resting heart rate 82 bpm, resting blood pressure 196/94 mmHg, with Lexiscan maximum heart rate achived was 120 bpm which is Less than 85 % of the maximum predicted heart rate and blood pressure was 187/99 mmHg. With Lexiscan, patient denied any complaint of chest pain. Electrocardiogram Resting electrocardiogram showed sinus rhythm, with Lexiscan there is less than 1.[address] segment depression noted from the baseline EKG. The EKG portion of the Lexiscan Myoview is nondiagnostic. Cardiac Stress and Resting SPECT Images: Cardiac Stress and Resting SPECT images were obtained using technetium 99m Myoview 32.8 mCi stress and 10.08 mCi at rest. Gated SPECT for analysis of segmental wall motion and calculation of the ejection fraction also done. Cardiac stress and resting SPECT images show uniform myocardial activity without segmental perfusion abnormality, computer derived ejection fraction is 59% with no regional wall motion abnormality, right ventricle is normal size and contractility. Conclusion: 1. The EKG portion of the Lexiscan is nondiagnostic. 2. No scintigraphic evidence of reversible ischemia seen, computer derived ejection fraction is 59% with no regional wall motion abnormality, right ventricle is normal size and contractility. 3. Normal Lexiscan Myoview study. Electronically signed by : Glen Morrissey, 03/11/2020 06:39:35
--- NOTE | 2020-03-10 09:11 | HMH.ITSHM ---
Current Home Medications as stated by this patient Mahnaz Rodríguez or patient portal representative. []METOPROLOL LISINOPRIL AMLODIPINE OMEPRAZOLE ALBUTEROL FLUTICASONE
== END ==
PROVIDERS: PCP Emergency Medicine; Visit Provider Emergency Medicine
DX: R07.9 Chest pain, unspecified (principal)
CPT/HCPCS: 78452; 93017; A9502; J2785

== ENCOUNTER 2020-09-04 00:03 | Emergency (ER) | payer MEDICAID, SELFPAY ==
[2020-09-04 00:04] VITALS: BP 166/97; PULSE 108; RESP 22; TEMP 36.6; O2SAT 94; BMI 36.6
--- NOTE | 2020-09-04 00:20 | XR_ITS ---
PROCEDURE INFORMATION: Exam: XR Chest Exam date and time: 09/04/2020 12:20 AM Age: 55 years old Clinical indication: Shortness of breath; Patient HX: Short of breath; Additional info: SOA TECHNIQUE: Imaging protocol: XR of the chest. Views: 2 views. COMPARISON: CR XR CHEST 2V 02/20/2020 9:44 PM FINDINGS: Lungs: No acute findings or consolidation. Pleural spaces: No pleural effusion. No pneumothorax. Heart/Mediastinum: No acute findings or cardiomegaly. Bones/joints: No acute findings. IMPRESSION: No acute cardiopulmonary findings. The
--- NOTE | 2020-09-04 00:27 | ECG_ITS ---
APPROVED REPORT Exam: Resting ECG HR:104 bpm ECG Measurements Heart Rate 104 AXES OH 148 P 50 QRSd 76 QRS -16 QT 336 T 61 QTc 441 Conclusion Sinus tachycardia Inferior changes are old Old late r wave progression Abnormal ECG Electronically signed by : Nathan Estrada, 09/05/2020 10:53:20
[2020-09-04 00:40] LABS: Adenovirus,PCR Not Detected (NotDetected); Bordetella Pertussis Not Detected (NotDetected); Chlamydophila Pneumoniae, PCR Not Detected (NotDetected); Coronavirus 19, PCR Not Detected (NotDetected); Coronavirus 229E Not Detected (NotDetected); Coronavirus NL63 Not Detected (NotDetected); Coronavirus OC43 Not Detected (NotDetected); Coronovirus HKU1,PCR Not Detected (NotDetected); Human Metapneumovirus Not Detected (NotDetected); Influenza A, PCR Not Detected (NotDetected); Influenza AH1, 2009 Not Detected (NotDetected); Influenza AH1, PCR Not Detected (NotDetected); Influenza AH3,PCR Not Detected (NotDetected); Influenza B, PCR Not Detected (NotDetected); Mycoplasma Pneumoniae, PCR Not Detected (NotDetected); Parainfluenza 1, PCR Not Detected (NotDetected); Parainfluenza 2, PCR Not Detected (NotDetected); Parainfluenza 3, PCR Not Detected (NotDetected); Parainfluenza 4, PCR Not Detected (NotDetected); Respiratory Syncytial Virus Not Detected (NotDetected); Rhinovirus/Enterovirus Not Detected (NotDetected)
--- NOTE | 2020-09-04 00:50 | HMH.EDSOB ---
ED Disposition Clinical Impression: Obesity (BMI 30-39.9), Hiatal hernia Chest pain Qualifiers: Chest pain type: precordial pain Qualified Code(s): R07.2 - Precordial pain Disposition: Home, Self-Care Condition on Discharge: Good Instructions: DI for Shortness of Breath Additional Instructions: see pcp for jo garcia Referrals: David Montes MD [Primary Care Provider] - - Critical Care Critical Care Time: No Attestation: On 09/04/20, the high probability of a clinically significant, sudden or life threatening deterioration of the following system(s) required my full and direct attention, intervention and personal management. The time I documented below is in addition to time spent performing reported procedures but includes the following listed in this critical care notation. Medical Decision Making - Medical Records Medical records reviewed: Yes: I reviewed the patient's medical records. - Antoni Inquiry Pt receiving controlled substance: No Vital Signs: 09/04/20 00:04 09/04/20 01:00 09/04/20 02:00 Temperature 97.9 F Temperature Source Oral Pulse Rate 98 H 99 H Pulse Rate [Left Radial] 108 H Respiratory Rate 22 20 20 Blood Pressure 158/83 H 161/88 H Blood Pressure [Right Arm] 166/97 H Blood Pressure Mean [Right Arm] 120 Blood Pressure Source Automatic Cuff Automatic Cuff Blood Pressure Source [Right Arm] Automatic Cuff Blood Pressure Position Sitting Sitting Blood Pressure Position [Right Arm] Sitting 02 Sat by Pulse Oximetry 94 L 95 93 L Oxygen Delivery Method Room Air Room Air Room Air 09/04/20 02:58 09/04/20 03:00 Temperature Temperature Source Pulse Rate 97 H Pulse Rate [Left Radial] Respiratory Rate Blood Pressure 180/96 H Blood Pressure [Right Arm] Blood Pressure Mean [Right Arm] Blood Pressure Source Automatic Cuff Blood Pressure Source [Right Arm] Blood Pressure Position Sitting Blood Pressure Position [Right Arm] 02 Sat by Pulse Oximetry 95 Oxygen Delivery Method Room Air Room Air - Lab Data Lab results reviewed: Yes: I reviewed the patient's lab results. Lab Results 09/04/20 00:30: Chlamy pneumoniae PCR Not detected, Adenovirus (PCR) Not detected, B. pertussis DNA (PCR) Not detected, Coronavirus OC43 (PCR) Not detected, Coronavirus HKU1 (PCR) Not detected, Coronavirus 229E (PCR) Not detected, SARS-CoV-2 (PCR) Not detected, Coronavirus NL63 (PCR) Not detected, Human Metapneumovir PCR Not detected, Influenza A (H1) PCR Not detected, Influ A (H1N1/09) PCR Not detected, Influenza A (H3) PCR Not detected, Influenza Type A (PCR) Not detected, Influenza Type B (PCR) Not detected, M. pneumoniae (PCR) Not detected, Parainfluenza 1 (PCR) Not detected, Parainfluenza 2 (PCR) Not detected, Parainfluenza 3 (PCR) Not detected, Parainfluenza 4 (PCR) Not detected, RSV (PCR) Not detected, Entero/Rhino (PCR) Not detected 09/04/20 01:02: WBC 7.9, RBC 4.76, Hgb 13.2, Hct 39.9, MCV 83.7, MCH 27.7, MCHC 33.1, RDW 14.4, Plt Count 286, MPV 7.8, Neut % (Auto) 60.8, Lymph % (Auto) 29.8, Cherry % (Auto) 5.5, Eos % (Auto) 2.8, Baso % (Auto) 1.0, Neut # (Auto) 4.8, Lymph # (Auto) 2.4, Cherry # (Auto) 0.4, Eos # (Auto) 0.2, Baso # (Auto) 0.1, ESR 47 H 09/04/20 01:02: Sodium 137, Potassium 3.5, Chloride 107, Carbon Dioxide 26, Anion Gap 7.5, BUN 15, Creatinine 0.60, Estimated Creat Clear 148, Estimated GFR 103, Est GFR ( Amer) 125, Glucose 141 H, Calcium 8.7, Total Bilirubin 0.4, Direct Bilirubin 0.4, Conjugated Bilirubin 0.0, Indirect Bilirubin 0.0, Unconjugated Bilirubin 0.0, AST 22, ALT 18, Alkaline Phosphatase 105, Troponin I < 0.01, C-Reactive Protein 9.7 H, Total Protein 6.5, Albumin 3.9, Procalcitonin 0.046 09/04/20 01:02: Lactate 1.8 09/04/20 03:15: Troponin I < 0.01 Result diagrams: 09/04/20 01:02 09/04/20 01:02 Orders (Tests/Meds): ED MEDICATIONS Generic Name Dose Route Start Last Admin Trade Name Freq PRN Reason Stop Dose Admin Sodium Chloride 1,0
[2020-09-04 01:00] VITALS: BP 158/83; PULSE 98; RESP 20; O2SAT 95
[2020-09-04 01:10] LABS: Basophils # 0.1 K/mm3 (0-0.2); Eosinophils # 0.2 K/mm3 (0.0-0.4); Eosinophils % 2.8 % (0.1-12.0); Hematocrit 39.9 % (37.0-47.0); Hemoglobin 13.2 g/dL (12.2-16.2); Lymphocytes # 2.4 K/mm3 (0.7-4.5); Lymphocytes % 29.8 % (10-50); Mean Corpuscular HGB Conc 33.1 g/dL (31.8-35.4); Mean Corpuscular Hemoglobin 27.7 pg (27.0-31.2); Mean Corpuscular Volume 83.7 fl (81-99); Mean Platelet Volume 7.8 fl (7.4-10.4); Monocytes # 0.4 K/mm3 (0.1-1.0); Monocytes % 5.5 % (1.7-9.3); Neutrophils # 4.8 K/mm3 (1.8-7.8); Neutrophils % 60.8 % (37.0-80.0); Platelet Count 286 K/mm3 (142-424); Red Blood Count 4.76 M/mm3 (4.20-5.40); Red Cell Distribution Width 14.4 % (11.5-17.5); White Blood Count 7.9 K/mm3 (4.8-10.8)
[2020-09-04 01:17] LABS: Alanine Aminotransferase 18 U/L (12-78); Albumin Level 3.9 g/dl (3.5-5.0); Alkaline Phosphatase 105 U/L (38-126); Anion Gap 7.5 mEq/L (5-15); Aspartate Amino Transferase 22 U/L (14-36); Bilirubin,Direct 0.4 mg/dl (0.0-0.4); Bilirubin,Total 0.4 mg/dl (0.2-1.3); Blood Urea Nitrogen 15 mg/dl (7-17); Calcium 8.7 mg/dl (8.4-10.2); Carbon Dioxide 26 mmol/L (22.0-30.0); Chloride 107 mmol/L (98-107); Creatinine Clearance Estimated 148 mL/min (50-200); Estimated Glomerular Filt Rate 103 ml/min (>60); GFR (African American) 125 ML/MIN (>60); Glucose 141 mg/dl (74-100); Potassium 3.5 mmoL/L (3.5-5.1); Sodium 137 mmol/L (136-145); Total Protein,Serum 6.5 g/dl (6.3-8.2)
[2020-09-04 01:19] LABS: Lactic Acid 1.8 mmol/L (0.7-2.1)
[2020-09-04 01:23] LABS: C-Reactive Protein 9.7 mg/L (0-4)
[2020-09-04 01:32] LABS: Troponin I < 0.01 ng/ml (0.00-0.034)
[2020-09-04 01:36] LABS: Procalcitonin 0.046 ng/mL (0.0-2.0)
[2020-09-04 02:00] VITALS: BP 161/88; PULSE 99; RESP 20; O2SAT 93
[2020-09-04 02:04] LABS: Erythrocyte Sedimentation Rate 47 mm/hr (0-30)
[2020-09-04 03:00] VITALS: BP 180/96; PULSE 97; O2SAT 95
[2020-09-04 03:44] LABS: Troponin I < 0.01 ng/ml (0.00-0.034)
[2020-09-04 03:53] VITALS: BP 182/99; PULSE 99; RESP 18; TEMP 36.8; O2SAT 96
[2020-09-04 04:14] LABS: ABG Base Excess -0.8 mmol/L (-2.4-2.3); ABG HCO3 24.1 mmhg (22.0-26.0); ABG Oxygen Saturation 92 % (90-100); ABG PCO2 40.8 mmhg (35.0-45.0); ABG PH 7.39 mmol/L (7.35-7.45); ABG TCO2 25.4 mmhg (23-27)
[2020-09-04 04:17] LABS: Allen's Test Acceptable; Source Left Radial
== END 2020-09-04 04:03 | disposition home or self-care (01) ==
PROVIDERS: Emergency Provider Emergency Medicine; PCP Emergency Medicine
DX: R07.2 Precordial pain (principal); I10 Essential (primary) hypertension; K21.9 Gastro-esophageal reflux disease without esophagitis; K44.9 Diaphragmatic hernia without obstruction or gangrene; Z91.048 Other nonmedicinal substance allergy status; Z79.899 Other long term (current) drug therapy
CPT/HCPCS: 71046; 80048; 80076; 82803; 83605; 84145; 84484; 85025; 85651; 86140; 87040; 87581; 87633; 87798; 93005; 96365; 96375; 99283

== ENCOUNTER → 2020-10-16 07:41 | Outpatient (CLI) | payer MEDICAID, SELFPAY ==
--- NOTE | 2020-10-16 07:44 | CA_ITS ---
APPROVED REPORT Line Maintainer: Jackelyn Mi RVT Study Quality: Good Indications: HTn Risk Factors Hypertension Obesity Renal Artery Doppler Proximal (R) 151.7/ cm/sec Mid (R) 124.2/ cm/sec Distal (R) 137.2/ cm/sec Renal Aorta Ratio (R) 1.17 Segmental A. (R) 53.2/19.1 cm/sec RI: 0.64 Segmental A. Sup (R) 46.4/15.0 cm/sec Segmental A. Mid (R) 53.2/19.1 cm/sec Segmental A. Inf (R) 49.1/12.3 cm/sec Proximal (L) 165.8/ cm/sec Mid (L) 161.9/ cm/sec Distal (L) 120.8/ cm/sec Renal Aorta Ratio (L) 1.28 Segmental A. (L) 70.7/21.8 cm/sec RI: 0.69 Segmental A. Sup (L) 70.7/21.8 cm/sec Segmental A. Mid (L) 46.3/15.7 cm/sec Segmental A. Inf (L) 36.1/13.0 cm/sec Renal Measurements Kidney Size (R) 13.1x6.1 cm Cortical Thickness (R) 1.1 cm Kidney Size (L) 13.0x8.2 cm Cortical Thickness (L) 2.0 cm Findings Study suggests no stenosis of the bilateral renal arteries. Conclusion Study suggests no stenosis of the bilateral renal arteries. Electronically signed by : Keely Saba, 10/16/2020 16:13:35
--- NOTE | 2020-10-16 07:44 | CA_ITS ---
APPROVED REPORT EXAM: Comprehensive 2D, Doppler, and color-flow Echocardiogram Sewer Tapper: Jackelyn Mi RVT Ht: 5 ft 2 in Wt: 242lbs BSA: 2.07 BP: 138/72 mmHg Indications: HTN,COPD,SOA,HTN,EDEMA,OBESITY TDS 2D Dimensions LVOT 2.17 cm (M/F) 1.5-2.5 LA Volume 27.50 mL LA Volume Index 13.28 mL/m2 (M/F) 16-34 M-Mode Dimensions RVDd 2.07 cm (0.9-2.6) LA Diam 4.13 cm (1.9-4.0) LVDd 3.90 cm (3.5-5.7) Ao Diam 2.32 cm (2.0-3.7) LVDs 2.58 cm (3.5-5.7) IVSd 0.93 cm (0.6-1.1) PWd 0.89 cm (0.6-1.1) EF (Teich) 63.40% FS 33.80% EDV (Teich) 65.90 mL TAPSE 2.60 (<1.7) ESV (Teich) 24.10 mL LV Diastology E Decel Time 273.00 (160-240 msec) E/A Ratio 1.2 MED E' 5.90 (< 7 cm/sec) E'/MED E' Ratio 16.39 (>14) LAT E' 11.30 (<10 cm/sec) E/LAT E' Ratio 8.56 (>14) Aortic Valve LVOT Max 106.00 (70-110 cm/s) LVOT VTI 25.18 cm AoV Peak Smith. 226.00 (50-130 cm/s) AO Peak GR. 20.50 mmHg AO Mean GR. 10.90 (<5 mmHg) AO VTI 52.58 (18-25 cm) MONICO (VTI) 1.77 (2.5-4.5 cm2) Mitral Valve MV E Max Smith. 97.00 (40-130 cm/s) MV A Velocity 83.00 (40-130 cm/s) E/A Ratio 1.17 MV Decel. Time 273.00 (160-240 ms) MV PHT 80.00 ms Pulmonary Valve PV Peak Velocity 86.00 (50-150 cm/s) Left Ventricle Left atrium is mildly enlarged, left ventricle is normal size, mild concentric left ventricular hypertrophy, visually estimated ejection fraction 55% with no regional wall motion abnormality, diastolic parameters are inconclusive. Right Ventricle Right atrium and right ventricle are normal size and contractility. Aortic Valve Aortic valve is thickened and calcified, mean gradient across aortic valve is 12 mmHg, valve area is 1.8 cm, represents mild aortic stenosis, there is no aortic insufficiency. Mitral Valve Mitral valve is grossly normal, there is no mitral stenosis, there is trace mitral regurgitation. Tricuspid Valve Tricuspid valve grossly normal, there is trace tricuspid regurgitation, tricuspid regurgitation jet velocity is inadequate for calculation of the right ventricular systolic pressure. Pulmonic Valve Pulmonic valve is poorly visualized. Great Vessels Aortic root is normal size. Pericardium No significant pericardial effusion noted. Conclusion 1. Normal left ventricular size, preserved left ventricular systolic function, visually estimated ejection fraction 55% with no regional wall motion abnormality diastolic parameters are inconclusive. 2. Thickened and calcified aortic valve with mild aortic stenosis, there is no aortic insufficiency. 3. Trace mitral and tricuspid regurgitation. 4. No significant pericardial effusion noted. Electronically signed by : Glen Morrissey, 10/16/2020 11:13:18
== END ==
PROVIDERS: PCP Emergency Medicine; Visit Provider Urology
DX: I10 Essential (primary) hypertension (principal); I50.23 Acute on chronic systolic (congestive) heart failure
CPT/HCPCS: 93306; 93976

== ENCOUNTER 2021-03-16 19:12 | Emergency (ER) | payer MEDICAID, SELFPAY ==
[2021-03-16 19:15] VITALS: BP 145/67; PULSE 116; RESP 29; TEMP 37; O2SAT 94; BMI 41.1
[2021-03-16 19:34] VITALS: BP 145/67; PULSE 116; RESP 26; TEMP 37; O2SAT 98
--- NOTE | 2021-03-16 19:34 | HMH.EDUTC ---
[facility] [place] Clinical Impression: Asthma with exacerbation Qualifiers: Asthma severity: unspecified severity Asthma persistence: unspecified Qualified Code(s): J45.901 - Unspecified asthma with (acute) exacerbation Disposition: Home, Self-Care Condition on Discharge: Good Instructions: Asthma -- Adult, DI for Asthma -- Adult Additional Instructions: ? Monitor temp. Tylenol every 4 hours as needed and / or ibuprofen every 6 hours as needed ( As long as your primary care physician has told you that it ok to take both. For fever/aches/pains ER if no less than 101 despite Tylenol or Motrin ? Humidifier/vaporizer or hot steamy shower ? Inhaler every 4-6 hours as needed like we discussed. If unsure how to use it, ask pharmacist to demonstrate how. Should help open airways and improve cough, wheezing, and shortness of breath Nebulizer treatment as discussed every 6 hours as needed for asthma attack ?*Start steroid tomorrow. Helps with inflammation therefore, cough and wheezing. Follow directions on the package. Reviewed side effects. Patient reports taking them before. Follow up IMMEDIATELY for new or worsening of symptoms OR no noticeable improvement over the next 48-72 hours. 911 immediately for any life threatening symptoms such as chest pain or difficulty breathing Prescriptions: Albuterol Sulfate [Albuterol 0.083% 2.5mg/3mL neb] 2.5 mg IH Q6HP PRN #15 each PRN Reason: Shortness Of Breath Transmission Status: Received by [id number] predniSONE [Prednisone 20mg Tab] 20 mg PO BID 5 Days #10 tab Transmission Status: Received by [id number] Referrals: Jluis Burrows APRN [Primary Care Provider] - As needed Time of Disposition: 20:08 Medical Decision Making - Antoni Inquiry Pt receiving controlled substance: No Antoni was queried for this patient: No Vital Signs: 03/16/21 19:15 03/16/21 19:34 Temperature 98.6 F 98.6 F Temperature Source Oral Pulse Rate 116 H Pulse Rate [Right] 116 H Respiratory Rate 29 H 26 H Blood Pressure 145/67 H Blood Pressure [Left Arm] 145/67 H Blood Pressure Mean [Left Arm] 93 Blood Pressure Source [Left Arm] Automatic Cuff Blood Pressure Position [Left Arm] Sitting 02 Sat by Pulse Oximetry 94 L Oxygen Delivery Method Room Air Orders (Tests/Meds): ED MEDICATIONS Discontinued Medications Generic Name Dose Route Start Last Admin Trade Name Johan PRN Reason Stop Dose Admin Albuterol/Ipratropium 3 ml 03/16/21 19:26 03/16/21 19:34 Ipratropium/Albuterol 3 Ml Neb IH 03/16/21 19:27 3 ml ONCE ONE Administration Methylprednisolone Sodium Succinate 125 mg 03/16/21 19:26 03/16/21 19:34 Methylprednisolone Sod Succ 125mg Vial IM 03/16/21 19:27 125 mg ONCE ONE Administration Medical Decision Narrative: Discussed Chest xray with patient and she declined Patient states that she is feeling much better after neb treatment and Solu Medrol States that she normally has medication for her nebulizer but she is out of her medication for it and has not followed up with her PCP to get more States that she is unsure if smells in the trash triggered her attack or if arguing with her grandson brought it on but she is feeling better now and no longer having any wheezing Patient laughing and talking in [place] states that she feels much better and SPO2 98% on room air State that she feels like she can breath much better and no longer wheezing Patient states that she is ready to go home Patient educated to return immediately if symptoms returned [facility] [place] HPI - General Stated complaint: asthma attack Time Seen by Provider: 03/16/21 19:34 Mode of Arrival: Ambulatory Source of Information: Patient Limitations: No Limitations Description of Symptoms (Recalled from Triage Doc. by RN): PATIENT C/O WHEEZING AND SOA THAT STARTED AFTER SHE WAS TAKING THE TRASH OUT TODAY HEENT Symptoms (Recalled from RN notes): No Resp Symptoms (Recalled from RN notes): Yes Skin
== END 2021-03-16 20:14 | disposition home or self-care (01) ==
PROVIDERS: Emergency Provider Nurse Practitioner; PCP Nurse Practitioner Family
DX: J45.901 Unspecified asthma with (acute) exacerbation (principal); I10 Essential (primary) hypertension; K21.9 Gastro-esophageal reflux disease without esophagitis
CPT/HCPCS: 96372; 99202; G0463

== ENCOUNTER 2021-07-22 15:28 | Emergency (ER) | payer MEDICAID, SELFPAY ==
[2021-07-22 15:46] VITALS: BP 179/88; PULSE 85; RESP 22; TEMP 36.8; O2SAT 95; BMI 43.9
--- NOTE | 2021-07-22 15:58 | HMH.EDUTC ---
[place] Disposition Clinical Impression: Viral syndrome Acute bronchitis Qualifiers: Bronchitis organism: unspecified organism Qualified Code(s): J20.9 - Acute bronchitis, unspecified Sinusitis Qualifiers: Sinusitis location: unspecified location Chronicity: acute Recurrence: non-recurrent Qualified Code(s): J01.90 - Acute sinusitis, unspecified Conjunctivitis Qualifiers: Conjunctivitis type: acute Acute conjunctivitis type: unspecified Laterality: right Qualified Code(s): H10.31 - Unspecified acute conjunctivitis, right eye Disposition: Home, Self-Care Condition on Discharge: Good Instructions: Acute Bronchitis, DI for Sinusitis Additional Instructions: Drink plenty of fluids. Take tylenol or ibuprofen for pain or fever. Take the medications as directed. Follow up with your regular doctor. GO TO THE ER FOR ANY WORSENING SYMPTOMS The cough medication (promethazine dm) will make you drowsy, so don't drive or operate heavy machinery after taking it. Prescriptions: Promethazine/Dextromethorphan [Promethazine-Dm Syrup] 5 ml PO Q6HP PRN #240 ml PRN Reason: Cough [facility] methylPREDNISolone [Medrol] 4 mg PO DIRECTED 6 Days #21 packet Transmission Status: Received by [facility]91 guaiFENesin [Mucinex 600mg tablet] 1 - 2 tab PO BIDP PRN #30 tab PRN Reason: Congestion Transmission Status: Received by [facility]91 Moxifloxacin HCl [Vigamox] 1 drp EYE-RIGHT TID 7 Days #3 ml Transmission Status: Received by [facility] Azithromycin [Z-Ethan 250mg Tab*] 250 mg PO UD DOSE PK #6 tab Transmission [facility]: [facility] Referrals: David Montes MD [Primary Care Provider] - Forms: Work/School Release Time of Disposition: 16:32 Medical Decision Making - Medical Records Medical records reviewed: No: I reviewed the patient's medical records. - Antoni Inquiry Pt receiving controlled substance: No Vital Signs: 07/22/21 15:46 07/22/21 16:48 Temperature 98.2 F 98.5 F Temperature Source Oral Pulse Rate 85 Pulse Rate [Left] 85 Respiratory Rate 22 22 Blood Pressure 179/88 H Blood Pressure [Right Arm] 179/88 H Blood Pressure Mean [Right Arm] 118 02 Sat by Pulse Oximetry 95 - Lab Data Lab Results 07/22/21 15:43: Group A Strep Rapid Negative 07/22/21 16:25: Influenza Type A Ag Negative, Influenza Type B Ag Negative Orders (Tests/Meds): ORDERS Category Date Time Status Strep Screen Confirmation Stat Micro 07/22/21 15:43 Received [place] HPI - General Stated complaint: head congestion Time Seen by Provider: 07/22/21 16:01 Mode of Arrival: Ambulatory Source of Information: Patient Limitations: No Limitations Description of Symptoms (Recalled from Triage Doc. by RN): pt c/o head and ears being stopped. complains of general fatigue. symptoms started 2 days ago. HEENT Symptoms (Recalled from RN notes): No Resp Symptoms (Recalled from RN notes): No Skin Symptoms (Recalled from RN notes): No MS Symptoms (Recalled from RN notes): No Functional Status (Recalled from RN notes): wnl - History of Present Illness Provider Complaint: She states that for the past 5 days she has had sinus and chest congestion. She denies any fever or chills. - Related Data Previous Rx's Medication Instructions Recorded cetirizine 10 mg tablet 10 mg PO DAILY PRN #30 tab 09/16/20 fluticasone propionate 50 1 spray INTRANASAL DAILY #16 g 09/16/20 mcg/actuation nasal spray,suspension amlodipine 10 mg tablet 10 mg PO BID #180 tab 01/26/21 Advair Diskus 100 mcg-50 mcg/dose See Rx Instructions .ROUTE 01/29/21 powder for inhalation .COMPLEX #60 each NS albuterol sulfate 90 mcg/actuation 2 puff INHALATION Q4-6H PRN #1 each 02/25/21 aerosol inhaler Albuterol Sulfate [Albuterol 2.5 mg IH Q6HP PRN #15 each 03/16/21 0.083% 2.5mg/3mL neb] omeprazole 40 mg capsule,delayed See Rx Instructions .ROUTE 0
[2021-07-22 16:26] LABS: UTC Influenza A Antigen Negative (Negative); UTC Influenza B Antigen Negative (Negative)
[2021-07-22 16:41] LABS: Strep Scrn Group A (Rapid) Negative (Negative)
[2021-07-22 16:48] VITALS: BP 179/88; PULSE 85; RESP 22; TEMP 36.9
== END 2021-07-22 16:57 | disposition home or self-care (01) ==
PROVIDERS: Emergency Provider Nurse Practitioner Family; PCP Emergency Medicine
DX: J02.9 Acute pharyngitis, unspecified (principal); J01.90 Acute sinusitis, unspecified; H10.31 Unspecified acute conjunctivitis, right eye; I10 Essential (primary) hypertension; K21.9 Gastro-esophageal reflux disease without esophagitis; J45.909 Unspecified asthma, uncomplicated; Z79.51 Long term (current) use of inhaled steroids; Z79.899 Other long term (current) drug therapy; Z88.2 Allergy status to sulfonamides; Z88.8 Allergy status to other drugs, medicaments and biological substances; Z91.048 Other nonmedicinal substance allergy status; Z82.49 Family history of ischemic heart disease and other diseases of the circulatory system; Z83.3 Family history of diabetes mellitus; Z83.438 Family history of other disorder of lipoprotein metabolism and other lipidemia
CPT/HCPCS: 87430; 87804; 99213; G0463

== ENCOUNTER → 2021-08-12 14:51 | Outpatient (CLI) | payer MEDICAID, SELFPAY ==
--- NOTE | 2021-08-12 14:55 | XR_ITS ---
FINAL REPORT CLINICAL HISTORY: l foot pain FINDINGS: LEFT FOOT Three views of the left foot were obtained. There is no acute fracture or dislocation. There is hallux valgus deformity. Mild degenerative changes are seen. There is mild lateral subluxation of the 2nd digit. A small plantar calcaneal spur is noted. Soft tissues are unremarkable. IMPRESSION: Degenerative changes without acute bony abnormality. Reviewed, Interpreted and Dictated by Armen Bautista III, MD Transcribed by Radha Prescott Authenticated by Armen Bautista III, MD on 08/12/2021 04:10:58 PM [facility]
[2021-08-12 16:40] LABS: Alanine Aminotransferase 15 U/L (12-78); Albumin Level 3.4 g/dl (3.5-5.0); Alkaline Phosphatase 114 U/L (38-126); Aspartate Amino Transferase 18 U/L (14-36); Chol/HDL Ratio 5.6 (1-3.5); Cholesterol 180 mg/dl (140-200); HDL Cholesterol 32 mg/dl (40-60); Total Protein,Serum 5.7 g/dl (6.3-8.2)
[2021-08-12 16:52] LABS: Direct LDL Cholesterol 93.34 mg/dL (100-129)
[2021-08-12 17:07] LABS: Triglycerides 444 mg/dl (30-150)
[2021-08-12 20:23] LABS: Bilirubin,Direct 0.1 mg/dl (0.0-0.4); Bilirubin,Indirect 0.2 mg/dL (0.0-0.9)
[2021-08-12 20:24] LABS: Bilirubin,Total 0.3 mg/dl (0.2-1.3); Bilirubin,Unconjugated 0.2 mg/dL (0.0-1.1)
== END ==
PROVIDERS: PCP Nurse Practitioner Family; Visit Provider Nurse Practitioner Family
DX: M79.672 Pain in left foot (principal); I10 Essential (primary) hypertension; I35.0 Nonrheumatic aortic (valve) stenosis
CPT/HCPCS: 36415; 73630; 80061; 80076

== ENCOUNTER 2021-10-24 18:52 | Emergency (ER) | payer MEDICAID, SELFPAY ==
--- NOTE | 2021-10-24 19:03 | XR_ITS ---
PROCEDURE INFORMATION: Exam: XR Chest Exam date and time: 10/24/2021 7:03 PM Age: 56 years old Clinical indication: Cough; Additional info: SOA TECHNIQUE: Imaging protocol: Radiologic exam of the chest. Views: 2 views. COMPARISON: CR XR CHEST 2V 09/04/2020 1:03 AM FINDINGS: Lungs: Widespread reticular pulmonary opacities. Pleural spaces: Unremarkable. No pleural effusion. No pneumothorax. Heart/Mediastinum: Unremarkable. No cardiomegaly. Vasculature: Vascular calcifications. Bones/joints: Unremarkable. IMPRESSION: Widespread reticular pulmonary opacities. Pulmonary venous congestion is favored over atypical infection.
[2021-10-24 19:31] VITALS: BP 150/67; PULSE 80; RESP 16; TEMP 36.7; O2SAT 96; BMI 43.9
--- NOTE | 2021-10-24 19:31 | HMH.EDUTC ---
[facility] Disposition Clinical Impression: Acute bronchitis Qualifiers: Bronchitis organism: unspecified organism Qualified Code(s): J20.9 - Acute bronchitis, unspecified Disposition: Home, Self-Care Condition on Discharge: Good Instructions: Acute Bronchitis, DI for Acute Bronchitis, Preventing the Spread of Coronavirus Discharge Instructions Additional Instructions: Drink plenty of fluids. Take tylenol or ibuprofen for pain or fever. Take the medications as directed. Follow up with your regular doctor. GO TO THE ER FOR ANY WORSENING SYMPTOMS Quarantine until you know the results of your covid-19 test. Notify your school or workplace of your results and follow their instructions regarding return to work/school. The cough medication (promethazine dm) will make you drowsy, so don't drive or operate heavy machinery after taking it. Prescriptions: Promethazine/Dextromethorphan [Promethazine-Dm Syrup] 5 ml PO Q6HP PRN #240 ml PRN Reason: Cough Transmission Status: Received by [facility]91 methylPREDNISolone [Medrol] 4 mg PO DIRECTED 6 Days #21 packet Transmission Status: Received by [facility]91 Cefdinir [Omnicef 300mg Capsule] 300 mg PO BID #20 cap Transmission Status: Received by [facility] Referrals: David Montes MD [Primary Care Provider] - Time of Disposition: 20:11 Medical Decision Making - Medical Records Medical records reviewed: No: I reviewed the patient's medical records. - Antoni Inquiry Pt receiving controlled substance: No Vital Signs: 10/24/21 19:31 10/24/21 20:37 Temperature 98.1 F 98.1 F Temperature Source Oral Pulse Rate 80 Pulse Rate [Left] 80 Respiratory Rate 16 16 Blood Pressure 150/67 H Blood Pressure [Right Arm] 150/67 H Blood Pressure Mean [Right Arm] 94 02 Sat by Pulse Oximetry 96 Orders (Tests/Meds): ED MEDICATIONS Discontinued Medications Generic Name Dose Route Start Last Admin Trade Name Freq PRN Reason Stop Dose Admin Cefdinir 300 mg 10/25/21 19:56 Cefdinir 300mg Capsule PO 10/25/21 19:57 ONCE ONE ORDERS Category Date Time Status Covid-19 Nasal PCR ([facility]) Routine Lab 10/24/21 20:02 Received [facility] HPI - General Stated complaint: SOA Time Seen by Provider: 10/24/21 19:31 - History of Present Illness Provider Complaint: She states that since yesterday she has had chest congestion and a nonproductive cough. She denies any chest pain or shortness of breath. She denies any fever or chills. - Related Data Previous Rx's Medication Instructions Recorded cetirizine 10 mg tablet 10 mg PO DAILY PRN #30 tab 09/16/20 Advair Diskus 100 mcg-50 mcg/dose See Rx Instructions .ROUTE 01/29/21 powder for inhalation .COMPLEX #60 each NS albuterol sulfate 90 mcg/actuation 2 puff INHALATION Q4-6H PRN #1 each 02/25/21 aerosol inhaler atorvastatin 40 mg tablet 40 mg PO DAILY #30 tab 05/31/21 carvedilol 25 mg tablet 25 mg PO BID #60 tab 05/31/21 losartan 100 mg tablet 100 mg PO DAILY #30 tab 05/31/21 albuterol sulfate 2.5 mg IH Q6HP PRN #25 each 08/11/21 omeprazole 40 mg capsule,delayed 40 mg PO ONCE #90 cap 08/11/21 release Cefdinir [Omnicef 300mg Capsule] 300 mg PO BID #20 cap 10/24/21 Promethazine/Dextromethorphan 5 ml PO Q6HP PRN #240 ml 10/24/21 [Promethazine-Dm Syrup] methylPREDNISolone [Medrol] 4 mg PO DIRECTED 6 Days #21 10/24/21 packet Allergies Allergy/AdvReac Type Severity Reaction Status Date / Time sulfamethoxazole Allergy Mild NAUSEATED Verified 10/24/21 19:33 [From Bactrim] trimethoprim [From Bactrim] Allergy Mild NAUSEATED Verified 10/24/21 19:33 adhesive Allergy Verified 10/24/21 19:33 naproxen Allergy Nausea Verified 10/24/21 19:33 [facility] History - Hepatitis A Screen Attestation statement:: This patient has been screened for Hepatitis A risk factors. I have reviewed the patient's past medical history: Yes Medical History: Reports
--- NOTE | 2021-10-24 20:15 | PC.NURSE ---
patient received a dose of omnicef 300mg before she was discharged.
[2021-10-24 20:37] VITALS: BP 150/67; PULSE 80; RESP 16; TEMP 36.7
== END 2021-10-24 20:37 | disposition home or self-care (01) ==
PROVIDERS: Emergency Provider Nurse Practitioner Family; PCP Emergency Medicine
DX: J20.9 Acute bronchitis, unspecified (principal)
CPT/HCPCS: 71046; 99212; C9803; G0463; U0003; U0005

== ENCOUNTER 2022-05-23 18:15 | Emergency (ER) | payer MEDICAID, SELFPAY ==
[2022-05-23 18:30] VITALS: BP 157/73; PULSE 84; RESP 22; TEMP 36.9; O2SAT 95; BMI 42.0
--- NOTE | 2022-05-23 18:45 | EXP.UTC ---
Discharge Plan Disposition Patient Disposition: Home, Self-Care Condition: Good Prescriptions Prescriptions: New benzonatate 100 mg capsule 100 mg PO TID PRN (Reason: cough) Qty: 30 0RF azithromycin [Zithromax Z-Ethan] 250 mg tablet See Rx Instructions .ROUTE .COMPLEX 5 Days Qty: 6 0RF Rx Instructions: For 250 mg dose pack: take 500 mg today (day 1), then 250 mg for 4 days (days 2-5) methylprednisolone [Medrol (Ethan)] 4 mg tablets,dose pack See Rx Instructions .Route .COMPLEX 6 Days Qty: 21 0RF Rx Instructions: taper pack; No Action cetirizine [Zyrtec] 10 mg tablet 10 mg PO DAILY PRN (Reason: allergy symptoms) Qty: 30 2RF omeprazole 40 mg capsule,delayed release(DR/EC) 40 mg PO ONCE Qty: 90 3RF albuterol sulfate 2.5 mg /3 mL (0.083 %) solution for nebulization 2.5 mg IH Q6HP PRN (Reason: Shortness Of Breath) Qty: 25 2RF albuterol sulfate 90 mcg/actuation HFA aerosol inhaler 2 puff INHALATION Q4-6H PRN (Reason: shortness of breath or wheezing) Qty: 1 3RF fluticasone propion-salmeterol [Advair Diskus] 100-50 mcg/dose blister with device See Rx Instructions .ROUTE .COMPLEX Qty: 60 12RF Dose Instruction: INHALE 1 DOSE BY MOUTH TWICE DAILY FOR ALLERGY SYMPTOMS Rx Instructions: INHALE 1 DOSE BY MOUTH TWICE DAILY FOR ALLERGY SYMPTOMS atorvastatin 40 mg tablet 40 mg PO DAILY Qty: 30 5RF carvedilol 25 mg tablet 25 mg PO BID Qty: 60 5RF Rx Instructions: must administer with a meal/food losartan 100 mg tablet 100 mg PO DAILY Qty: 30 5RF cefdinir 300 MG capsule 300 mg PO BID Qty: 20 0RF methylprednisolone 4 MG tablets,dose pack 4 mg PO DIRECTED 6 Days Qty: 21 0RF promethazine-DM 120 ML syrup 5 ml PO Q6HP PRN (Reason: Cough) Qty: 240 0RF Referrals Follow up/Referrals: David Montes MD [Primary Care Provider] - See instructions Activity Restrictions/Add. Instructions Additional Instructions/Restrictions: Start antibiotic today. Be sure to complete entire prescription even if feeling better Monitor temp. Tylenol every 4 hours as needed and / or ibuprofen every 6 hours as needed ( As long as your primary care physician has told you that it ok to take both. For fever/aches/pains ER if no less than 101 despite Tylenol or Motrin Humidifier/vaporizer or hot steamy shower Inhaler every 4-6 hours as needed like we discussed. If unsure how to use it, ask pharmacist to demonstrate how. Should help open airways and improve cough, wheezing, and shortness of breath *Tessalon Perles will not cause drowsiness but use at bedtime to help stop cough so that you may get some rest. *Start steroid tomorrow. Helps with inflammation therefore, cough and wheezing. Follow directions on the package. Reviewed side effects. Patient reports taking them before. Follow up IMMEDIATELY for new or worsening of symptoms OR no noticeable improvement over the next 48-72 hours. 911 immediately for any life threatening symptoms such as chest pain or difficulty breathing Clinical Impressions Clinical Impression: Sinusitis Qualifiers: Sinusitis location: unspecified location Chronicity: unspecified Qualified Code(s): J32.9 - Chronic sinusitis, unspecified Acute bronchitis Qualifiers: Bronchitis organism: unspecified organism Qualified Code(s): J20.9 - Acute bronchitis, unspecified Instructions Patient Instructions: Sinusitis, Acute Bronchitis, DI for Sinusitis Discharge ED Provider: Angelia Cristina [facility] HPI General Stated complaint: SOA,congestion,headache Mode of Arrival: Ambulatory Source of Information: Patient Limitations: No Limitations Time Seen by Provider: 05/23/22 18:45 Description of Symptoms (Recalled from Triage Doc. by RN): PATIENT C/O SOA, HEADACHE AND COUGH SINCE MONDAY HEENT Symptoms (Recalled from RN notes): Yes Resp Symptoms (Recalled from RN notes): Yes Skin Sym
[2022-05-23 19:23] VITALS: BP 157/73; PULSE 84; RESP 22; TEMP 36.9; O2SAT 95
== END 2022-05-23 20:02 | disposition home or self-care (01) ==
PROVIDERS: Emergency Provider Nurse Practitioner; PCP Emergency Medicine
DX: J32.9 Chronic sinusitis, unspecified (principal); J20.9 Acute bronchitis, unspecified
CPT/HCPCS: 96372; 99212; 99213; G0463; J0696

== ENCOUNTER 2022-07-17 10:40 | Emergency (ER) | payer MEDICAID, SELFPAY ==
[2022-07-17 11:10] VITALS: BP 157/116; PULSE 72; RESP 20; TEMP 36.8; O2SAT 95; BMI 42.0
--- NOTE | 2022-07-17 11:17 | EXP.UTC ---
Discharge Plan Disposition Patient Disposition: Home, Self-Care Condition: Good Prescriptions Prescriptions: New methylprednisolone 4 mg Tablets,Dose Pack 4 mg PO DIRECTED Qty: 21 0RF amoxicillin-pot clavulanate 875-125 mg Tablet 1 tab PO Q12H Qty: 20 0RF benzonatate [benzonatate] 100 mg capsule 100 mg PO TIDP PRN (Reason: Cough) Qty: 30 0RF No Action cetirizine [Zyrtec] 10 mg tablet 10 mg PO DAILY PRN (Reason: allergy symptoms) Qty: 30 2RF omeprazole 40 mg capsule,delayed release(DR/EC) 40 mg PO ONCE Qty: 90 3RF albuterol sulfate 2.5 mg /3 mL (0.083 %) solution for nebulization 2.5 mg IH Q6HP PRN (Reason: Shortness Of Breath) Qty: 25 2RF albuterol sulfate 90 mcg/actuation HFA aerosol inhaler 2 puff INHALATION Q4-6H PRN (Reason: shortness of breath or wheezing) Qty: 1 3RF fluticasone propion-salmeterol [Advair Diskus] 100-50 mcg/dose blister with device See Rx Instructions .ROUTE .COMPLEX Qty: 60 12RF Dose Instruction: INHALE 1 DOSE BY MOUTH TWICE DAILY FOR ALLERGY SYMPTOMS Rx Instructions: INHALE 1 DOSE BY MOUTH TWICE DAILY FOR ALLERGY SYMPTOMS atorvastatin 40 mg tablet 40 mg PO DAILY Qty: 30 5RF carvedilol 25 mg tablet 25 mg PO BID Qty: 60 5RF Rx Instructions: must administer with a meal/food losartan 100 mg tablet 100 mg PO DAILY Qty: 30 5RF cefdinir 300 MG capsule 300 mg PO BID Qty: 20 0RF methylprednisolone 4 MG tablets,dose pack 4 mg PO DIRECTED 6 Days Qty: 21 0RF promethazine-DM 120 ML syrup 5 ml PO Q6HP PRN (Reason: Cough) Qty: 240 0RF benzonatate 100 mg capsule 100 mg PO TID PRN (Reason: cough) Qty: 30 0RF azithromycin [Zithromax Z-Ethan] 250 mg tablet See Rx Instructions .ROUTE .COMPLEX 5 Days Qty: 6 0RF Rx Instructions: For 250 mg dose pack: take 500 mg today (day 1), then 250 mg for 4 days (days 2-5) methylprednisolone [Medrol (Ethan)] 4 mg tablets,dose pack See Rx Instructions .Route .COMPLEX 6 Days Qty: 21 0RF Rx Instructions: taper pack; Referrals Follow up/Referrals: David Montes MD [Primary Care Provider] - See instructions Activity Restrictions/Add. Instructions Additional Instructions/Restrictions: Drink plenty of fluids. Take tylenol or ibuprofen for pain or fever. Take the medications as directed. Follow up with your regular doctor. GO TO THE ER FOR ANY WORSENING SYMPTOMS Throw your tooth brush away and get a new one. Quarantine until you know the results of your covid-19 test. Notify your school or workplace of your results and follow their instructions regarding return to work/school. Don't start the oral steroids until tomorrow, since you had the shot here today. The cough medication (promethazine dm) will make you drowsy, so don't drive or operate heavy machinery after taking it. The pyridium will make your urine turn orange, this is an expected side effect. It will stain your clothes if it comes into contact with them. We will culture the urine. That will tell what bacteria is causing your infection and which antibiotics will treat it best. Sometimes the first antibiotic we prescribe turns out to not work against different bacteria. So, make sure you follow up within 3 days if you are not getting better. Clinical Impressions Clinical Impression: Sinusitis Stand Alone Forms Stand Alone Forms: Work/School Release Instructions Patient Instructions: DI for Acute Bronchitis Discharge ED [place] Jar[place] Agee [facility] [place] General Stated complaint: sinus, congestion, high blood pressure Time Seen by Provider: 07/17/22 11:17 History of Present Illness Provider Complaint: She states that for the past 5 days she has had sore throat,sinus congestion, and malaise. Related Data Previous Rx's Medication Instructions Recorded cetirizine 10 mg tablet (Zyrtec) 10 mg PO DAILY PRN allergy 09/16/20 symptoms #30 tabs Ad
[2022-07-17 11:49] VITALS: BP 157/116; PULSE 72; RESP 20; TEMP 36.8; O2SAT 95
== END 2022-07-17 11:52 | disposition home or self-care (01) ==
PROVIDERS: Emergency Provider Nurse Practitioner Family; PCP Emergency Medicine
DX: J01.90 Acute sinusitis, unspecified (principal); I10 Essential (primary) hypertension; J44.9 Chronic obstructive pulmonary disease, unspecified; E78.5 Hyperlipidemia, unspecified
CPT/HCPCS: 99212; 99214; G0463

== ENCOUNTER 2022-08-07 08:58 | Emergency (ER) | payer MEDICAID, SELFPAY ==
[2022-08-07 09:05] VITALS: BP 199/80; BP 202/93; PULSE 72; PULSE 83; RESP 16; TEMP 36.7; O2SAT 96; O2SAT 97; BMI 42.0
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
--- NOTE | 2022-08-07 09:14 | PC.NURSE ---
pt given ice pack for facial pain. pts at bedside.
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
--- NOTE | 2022-08-07 09:22 | PC.NURSE ---
pt to RAD wia wheelchair
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
[2022-08-07 10:01] VITALS: BP 185/77; PULSE 69; O2SAT 95
[2022-08-07 10:18] VITALS: BP 185/77; PULSE 69; RESP 16; TEMP 36.7
== END 2022-08-07 10:19 | disposition home or self-care (01) ==
PROVIDERS: Emergency Provider Student in an Organized Health Care Education/Training Program; PCP Emergency Medicine
DX: S00.83XA Contusion of other part of head, initial encounter (principal); R68.84 Jaw pain; Y04.0XXA Assault by unarmed brawl or fight, initial encounter
CPT/HCPCS: 70450; 70486; 99284; 99285

== ENCOUNTER → 2022-09-19 07:12 | Outpatient (CLI) | payer MEDICAID, SELFPAY ==
[2022-09-19 08:07] LABS: Basophils # 0.1 K/mm3 (0-0.2); Basophils % 1.1 % (0.1-2.0); Eosinophils # 0.2 K/mm3 (0.0-0.4); Eosinophils % 3.2 % (0.1-12.0); Hematocrit 40.3 % (37.0-47.0); Hemoglobin 13.2 g/dL (12.2-16.2); Lymphocytes # 2.2 K/mm3 (0.7-4.5); Lymphocytes % 32.3 % (10-50); Mean Corpuscular HGB Conc 32.8 g/dL (31.8-35.4); Mean Corpuscular Hemoglobin 28.4 pg (27.0-31.2); Mean Corpuscular Volume 86.5 fl (81-99); Mean Platelet Volume 8.4 fl (7.4-10.4); Monocytes # 0.5 K/mm3 (0.1-1.0); Monocytes % 7.7 % (1.7-9.3); Neutrophils # 3.8 K/mm3 (1.8-7.8); Neutrophils % 55.8 % (37.0-80.0); Platelet Count 267 K/mm3 (142-424); Red Blood Count 4.66 M/mm3 (4.20-5.40); Red Cell Distribution Width 14.7 % (11.5-17.5); White Blood Count 6.7 K/mm3 (4.8-10.8)
[2022-09-19 10:35] LABS: Chloride 103 mmol/L (98-107); Potassium 4.3 mmoL/L (3.5-5.1); Sodium 140 mmol/L (136-145)
[2022-09-19 10:37] LABS: Bilirubin,Unconjugated 0.4 mg/dL (0.0-1.1); Blood Urea Nitrogen 13 mg/dl (7-17); Estimated Glomerular Filt Rate 126 ml/min (>60); GFR (African American) 153 ML/MIN (>60)
[2022-09-19 10:38] LABS: Alanine Aminotransferase 21 U/L (12-78); Albumin Level 3.5 g/dl (3.5-5.0); Alkaline Phosphatase 120 U/L (38-126); Anion Gap 13.3 mEq/L (5-15); Aspartate Amino Transferase 21 U/L (14-36); Bilirubin,Indirect 0.3 mg/dL (0.0-0.9); Bilirubin,Total 0.3 mg/dl (0.2-1.3); Calcium 8.7 mg/dl (8.4-10.2); Carbon Dioxide 28 mmol/L (22.0-30.0); Chol/HDL Ratio 4.1 (1-3.5); Cholesterol 156 mg/dl (140-200); Glucose 100 mg/dl (74-100); HDL Cholesterol 38 mg/dl (40-60); Total Protein,Serum 5.9 g/dl (6.3-8.2); Triglycerides 201 mg/dl (30-150); VLDL Cholesterol 40 mg/dL (0-40)
[2022-09-19 10:49] LABS: Direct LDL Cholesterol 80.83 mg/dL (100-129)
[2022-09-19 10:52] LABS: Free T4 (Free Thyroxine) 1.21 ng/dl (0.78-2.19)
[2022-09-19 11:06] LABS: Thyroid Stimulating Hormone 2.78 uIU/mL (0.465-4.68)
== END ==
PROVIDERS: PCP Emergency Medicine; Visit Provider Nurse Practitioner Family
DX: R06.00 Dyspnea, unspecified (principal); I35.0 Nonrheumatic aortic (valve) stenosis; I11.9 Hypertensive heart disease without heart failure; E78.2 Mixed hyperlipidemia; I63.9 Cerebral infarction, unspecified; E11.9 Type 2 diabetes mellitus without complications
CPT/HCPCS: 36415; 80048; 80061; 80076; 84439; 84443; 85025

== ENCOUNTER 2022-10-16 15:10 | Emergency (ER) | payer MEDICAID, SELFPAY ==
[2022-10-16] VITALS (7 sets, daily range): BP systolic 175–194; BP diastolic 67–99; PULSE 74–90; RESP 16–20; TEMP 36.6–36.8; O2SAT 94–99; BMI 43.9
--- NOTE | 2022-10-16 16:21 | ECG_ITS ---
APPROVED REPORT Exam: Resting ECG HR:76 bpm ECG Measurements Heart Rate 76 AXES HI 159 P 24 QRSd 89 QRS -19 QT 356 T 14 QTc 386 Conclusion SINUS RHYTHM VOLTAGE CRITERIA FOR LVH Old anteroseptal changes ABNORMAL ECG UNCONFIRMED REPORT Electronically signed by : Nathan Estrada MD 10/17/2022 18:00:18
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
--- NOTE | 2022-10-17 00:40 | HMH.EDGENADL ---
Discharge Plan Disposition Patient Disposition: Home, Self-Care Condition: Good Prescriptions Prescriptions: No Action albuterol sulfate 2.5 mg /3 mL (0.083 %) solution for nebulization 2.5 mg IH Q6HP PRN (Reason: Shortness Of Breath) levocetirizine [Xyzal] 5 mg tablet 5 mg PO DAILY hydrochlorothiazide 25 mg tablet 25 mg PO DAILY Qty: 30 2RF atorvastatin 40 mg tablet 40 mg PO DAILY Qty: 90 3RF Trelegy Ellipta 200-62.5-25 mcg blister with device 1 inh inhalation DAILY Qty: 60 2RF albuterol sulfate 90 mcg/actuation HFA aerosol inhaler 2 puff INHALATION Q4-6H PRN (Reason: shortness of breath or wheezing) Qty: 1 3RF carvedilol 25 mg tablet 25 mg PO BID Qty: 60 5RF Rx Instructions: must administer with a meal/food losartan 100 mg tablet 100 mg PO DAILY Qty: 30 5RF omeprazole 40 mg capsule,delayed release(DR/EC) See Rx Instructions .ROUTE .COMPLEX Qty: 90 0RF Dose Instruction: Take 1 capsule by mouth once daily Rx Instructions: Take 1 capsule by mouth once daily Referrals Follow up/Referrals: David Montes MD [Primary Care Provider] - See instructions Activity Restrictions/Add. Instructions Additional Instructions/Restrictions: Please follow-up with your primary care provider. Please return to the emergency department if you develop any new or worsening symptoms or become concerned for your health. Clinical Impressions Clinical Impression: Headache HTN (hypertension) Qualifiers: Hypertension type: unspecified Qualified Code(s): I10 - Essential (primary) hypertension Discharge ED Provider: Kemal Germain General Adult HPI General Chief complaint: Recheck/Abnormal Lab/Rx Stated complaint: BP 194/110, sent by Dr Hinojosa Time Seen by Provider: 10/16/22 16:00 Mode of Arrival: Ambulatory Source of Information: Patient Limitations: No Limitations Description of Symptoms (Recalled from ER Triage Doc. by RN): pt to ed c/o headache and hypertension. pt states she has diagnosed htn and takes 3 blood pressure medications daily. pt reports a mld headache today. History of Present Illness HPI narrative: 57-year-old female history of poorly controlled hypertension, on losartan, hydrochlorothiazide, carvedilol at home who presents for worsening hypertension at home. She reports that she took her losartan and her hydrochlorothiazide as prescribed already today but has not taken her carvedilol because it makes her drowsy and she did not want to be drowsy in case she had to come to the ED. She reports that her hypertension has been worsening recently despite increases in medication. She reports that she had development of a mild left-sided headache today associated with her increasing blood pressure and so came into the ED. She has taken no medications for her headache. She has a PCP that she is following up with. She reports no chest pain shortness of breath changes in bowel/bladder function, fever chills. Related Data Home Medications Medication Instructions Recorded Confirmed albuterol sulfate 2.5 mg/3 mL 2.5 mg inhalation Q6HP PRN 09/12/22 10/11/22 (0.083 %) solution for nebulization Shortness Of Breath levocetirizine 5 mg tablet (Xyzal) 5 mg PO DAILY 09/12/22 10/11/22 Previous Rx's Medication Instructions Recorded albuterol sulfate 90 mcg/actuation 2 puff inhalation Q4-6H PRN 02/25/21 aerosol inhaler shortness of breath or wheezing #1 ea carvedilol 25 mg tablet 25 mg PO BID #60 tabs 04/22/22 losartan 100 mg tablet 100 mg PO DAILY #30 tabs 04/22/22 omeprazole 40 mg capsule,delayed See Rx Instructions .Route 09/05/22 release .COMPLEX #90 caps hydrochlorothiazide 25 mg tablet 25 mg PO DAILY #30 tabs 09/12/22 atorvastatin 40 mg tablet 40 mg PO DAILY #90 tabs 10/11/22 fluticasone fur. 200 mcg-umeclid 1 inh inhalation DAILY #60 ea 10/11/22 62.5 mcg-vilant 25 mcg inhalat.powder (Trelegy Ellipta) Allergies Allergy/AdvReac Type Severity Re
== END 2022-10-16 17:47 | disposition home or self-care (01) ==
PROVIDERS: Emergency Provider Emergency Medicine; PCP Emergency Medicine
DX: R51.9 Headache, unspecified (principal); I10 Essential (primary) hypertension
CPT/HCPCS: 93005; 99284

== ENCOUNTER → 2022-11-01 13:45 | Outpatient (CLI) | payer MEDICAID, SELFPAY ==
--- NOTE | 2022-11-01 13:47 | CA_ITS ---
APPROVED REPORT EXAM: Comprehensive 2D, Doppler, and color-flow Echocardiogram Clinical Assistant: Ninoska Duque RT(R) Ht: 5 ft 2 in Wt: 240lbs BSA: 2.07 BP: 169/79 mmHg Indications: SOA, HTN, hyperlipidemia, obesity, mild , DD 2D Dimensions LVOT 2.07 cm (M/F) 1.5-2.5 M-Mode Dimensions RVDd 2.26 cm (0.9-2.6) LA Diam 4.88 cm (1.9-4.0) LVDd 4.76 cm (3.5-5.7) Ao Diam 2.42 cm (2.0-3.7) LVDs 3.48 cm (3.5-5.7) IVSd 0.93 cm (0.6-1.1) PWd 0.98 cm (0.6-1.1) EF (Teich) 52.40% FS 26.90% EDV (Teich) 105.40 mL ESV (Teich) 50.20 mL LV Diastology E Decel Time 190.00 (160-240 msec) E/A Ratio 0.7 MED E' 7.20 (< 7 cm/sec) E'/MED E' Ratio 11.99 (>14) LAT E' 6.90 (<10 cm/sec) E/LAT E' Ratio 12.51 (>14) Aortic Valve LVOT Max 115.00 (70-110 cm/s) LVOT VTI 25.08 cm AoV Peak Smith. 253.00 (50-130 cm/s) AO Peak GR. 25.70 mmHg AO Mean GR. 12.50 (<5 mmHg) AO VTI 44.76 (18-25 cm) MONICO (VTI) 1.89 (2.5-4.5 cm2) Mitral Valve MV E Max Smith. 86.00 (40-130 cm/s) MV A Velocity 116.00 (40-130 cm/s) E/A Ratio 0.74 MV Decel. Time 190.00 (160-240 ms) MV PHT 56.00 ms Left Ventricle The left ventricle is normal size. The left ventricular systolic function is normal. The left ventricular ejection fraction is within the normal range. There is increased LV wall thickness. There is normal LV segmental wall motion. Transmitral Doppler flow pattern suggests impaired LV relaxation. LVEF is 60%. Right Ventricle The right ventricle is normal size. The right ventricular systolic function is normal. Atria The left atrium size is normal. The right atrium size is normal. There is no Doppler evidence of interatrial shunt. Aortic Valve The aortic valve is mildly thickened. Mild aortic stenosis. Aortic valve area is 1.7 cm2 by continuity equation. Peak velocity 2.7 m/s. Mean AV gradient 13 mmHg. Peak AV gradient 26 mmHg. Mild aortic regurgitation. Mitral Valve The mitral valve is mildly thickened. No evidence of mitral valve stenosis. There is no mitral valve regurgitation noted. Tricuspid Valve The tricuspid valve leaflets are thin and pliable. Trace tricuspid regurgitation. There is insufficient TR jet to calculate RVSP. Pulmonic Valve The pulmonary valve is normal in structure. Great Vessels The aortic root is normal in size. The ascending aorta is normal in size. The IVC is not well visualized. Pericardium There is no pericardial effusion. Other Information Study Quality: Adequate Conclusion Normal biventricular systolic function. Mild . Compared to prior study from 2020, the severity of is overall unchanged. Electronically signed by : Serena Carlos, 11/01/2022 18:01:41
== END ==
PROVIDERS: PCP Emergency Medicine; Visit Provider Physician Assistant
DX: I35.0 Nonrheumatic aortic (valve) stenosis (principal); I10 Essential (primary) hypertension; E78.5 Hyperlipidemia, unspecified
CPT/HCPCS: 93306

== ENCOUNTER 2022-12-19 09:44 | Emergency (ER) | payer MEDICAID, SELFPAY ==
[2022-12-19 09:55] VITALS: BP 120/70; PULSE 65; RESP 21; TEMP 36.6; O2SAT 97; BMI 43.3
--- NOTE | 2022-12-19 10:05 | EXP.UTC ---
Discharge Plan Disposition Patient Disposition: Home, Self-Care Condition: Good Prescriptions Prescriptions: New acyclovir 800 mg tablet 800 mg PO 5XDAY 7 Days Qty: 35 0RF Rx Instructions: while awake; give 5 doses in 24 hours nystatin 100,000 unit/gram powder 1 applic topical TID PRN (Reason: yeast) Qty: 60 0RF No Action albuterol sulfate 2.5 mg /3 mL (0.083 %) solution for nebulization 2.5 mg IH Q6HP PRN (Reason: Shortness Of Breath) levocetirizine [Xyzal] 5 mg tablet 5 mg PO DAILY hydrochlorothiazide 25 mg tablet 25 mg PO DAILY Qty: 30 2RF atorvastatin 40 mg tablet 40 mg PO DAILY Qty: 90 3RF Trelegy Ellipta 200-62.5-25 mcg blister with device 1 inh inhalation DAILY Qty: 60 2RF albuterol sulfate 90 mcg/actuation HFA aerosol inhaler 2 puff INHALATION Q4-6H PRN (Reason: shortness of breath or wheezing) Qty: 1 3RF carvedilol 25 mg tablet 25 mg PO BID Qty: 60 5RF Rx Instructions: must administer with a meal/food losartan 100 mg tablet 100 mg PO DAILY Qty: 30 5RF omeprazole 40 mg capsule,delayed release(DR/EC) See Rx Instructions .ROUTE .COMPLEX Qty: 90 0RF Dose Instruction: Take 1 capsule by mouth once daily Rx Instructions: Take 1 capsule by mouth once daily Referrals Follow up/Referrals: David Montes MD [Primary Care Provider] - See instructions Activity Restrictions/Add. Instructions Additional Instructions/Restrictions: Take medication as prescribed Follo w up with your Family Doctor if no improvement or any worsening of symptoms Return if needed Straight to ER if any life threatening symptoms Clinical Impressions Clinical Impression: Shingles Qualifiers: Herpes zoster complications: without complications Qualified Code(s): B02.9 - Zoster without complications Instructions Patient Instructions: DI for Shingles, DI for Yeast Infection-Skin Discharge ED Provider: Angelia Cristina [facility] General Stated complaint: rash on Lt side, pain Mode of Arrival: Ambulatory Source of Information: Patient Limitations: No Limitations Time Seen by Provider: 12/19/22 10:05 Description of Symptoms (Recalled from Triage Doc. by RN): PATIENT C/O RASH TO LEFT SIDE NEAR BREAST THAT IS RED, ITCHY AND IRRITATED HEENT Symptoms (Recalled from RN notes): No Resp Symptoms (Recalled from RN notes): No Skin Symptoms (Recalled from RN notes): Yes MS Symptoms (Recalled from RN notes): No Functional Status (Recalled from RN notes): WNL History of Present Illness Provider Complaint: Patient states that she has a red rash under the side of her left breast states that she wasnt sure if it may have been yeast or shingles States that the rash itches, smyth and sore to the touch States that she took the shingles vaccine earlier in the year and wasnt sure if she could get it or not Related Data Home Medications Medication Instructions Recorded Confirmed albuterol sulfate 2.5 mg/3 mL 2.5 mg inhalation Q6HP PRN 09/12/22 10/17/22 (0.083 %) solution for nebulization Shortness Of Breath levocetirizine 5 mg tablet (Xyzal) 5 mg PO DAILY 09/12/22 10/17/22 Previous Rx's Medication Instructions Recorded albuterol sulfate 90 mcg/actuation 2 puff inhalation Q4-6H PRN 02/25/21 aerosol inhaler shortness of breath or wheezing #1 ea carvedilol 25 mg tablet 25 mg PO BID #60 tabs 04/22/22 losartan 100 mg tablet 100 mg PO DAILY #30 tabs 04/22/22 hydrochlorothiazide 25 mg tablet 25 mg PO DAILY #30 tabs 09/12/22 atorvastatin 40 mg tablet 40 mg PO DAILY #90 tabs 10/11/22 fluticasone fur. 200 mcg-umeclid 1 inh inhalation DAILY #60 ea 10/11/22 62.5 mcg-vilant 25 mcg inhalat.powder (Trelegy Ellipta) omeprazole 40 mg capsule,delayed See Rx Instructions .Route 11/24/22 release .COMPLEX #90 caps acyclovir 800 mg tablet 800 mg PO 5XDAY 7 days #35 tabs 12/19/22 nystatin 100,000 unit/gram topical 1 applic topical TID PRN yeast #60 12/19/22 powder grams
[2022-12-19 10:10] VITALS: BP 120/70; PULSE 65; RESP 21; TEMP 36.6; O2SAT 97
== END 2022-12-19 10:42 | disposition home or self-care (01) ==
PROVIDERS: Emergency Provider Nurse Practitioner; PCP Emergency Medicine
DX: B02.9 Zoster without complications (principal); I10 Essential (primary) hypertension
CPT/HCPCS: 99212; 99214; G0463

== ENCOUNTER 2023-05-07 09:39 | Emergency (ER) | payer MEDICAID, SELFPAY ==
[2023-05-07 10:10] VITALS: BP 127/61; PULSE 73; RESP 18; TEMP 36.7; O2SAT 94; BMI 42.0
--- NOTE | 2023-05-07 10:12 | EXP.UTC ---
Discharge Plan Disposition Patient Disposition: Home, Self-Care Condition: Good Prescriptions Prescriptions: New benzonatate [benzonatate] 100 mg capsule 100 mg PO TIDP PRN (Reason: Cough) Qty: 30 0RF oseltamivir [Tamiflu] 75 mg capsule 75 mg PO BID Qty: 10 0RF ondansetron 4 mg Tablet,Disintegrating 4 mg PO Q8H PRN (Reason: Nausea) Qty: 12 0RF No Action albuterol sulfate 2.5 mg /3 mL (0.083 %) solution for nebulization 2.5 mg IH Q6HP PRN (Reason: Shortness Of Breath) levocetirizine [Xyzal] 5 mg tablet 5 mg PO DAILY hydrochlorothiazide 25 mg tablet 25 mg PO DAILY Qty: 30 2RF atorvastatin 40 mg tablet 40 mg PO DAILY Qty: 90 3RF Trelegy Ellipta 200-62.5-25 mcg blister with device 1 inh inhalation DAILY Qty: 60 2RF albuterol sulfate 90 mcg/actuation HFA aerosol inhaler 2 puff INHALATION Q4-6H PRN (Reason: shortness of breath or wheezing) Qty: 1 3RF montelukast 10 mg tablet PO metoprolol succinate 50 mg tablet extended release 24 hr 50 mg PO DAILY Qty: 90 3RF losartan 100 mg tablet 100 mg PO DAILY Qty: 30 5RF omeprazole 40 mg capsule,delayed release(DR/EC) See Rx Instructions .ROUTE .COMPLEX Qty: 90 0RF Dose Instruction: Take 1 capsule by mouth once daily Rx Instructions: Take 1 capsule by mouth once daily acyclovir 800 mg tablet 800 mg PO 5XDAY 7 Days Qty: 35 0RF Rx Instructions: while awake; give 5 doses in 24 hours nystatin 100,000 unit/gram powder 1 applic topical TID PRN (Reason: yeast) Qty: 60 0RF Referrals Follow up/Referrals: Jluis Burrows APRN [Primary Care Provider] - See instructions Activity Restrictions/Add. Instructions Additional Instructions/Restrictions: Drink plenty of fluids. Take tylenol or ibuprofen for pain or fever. Take the medications as directed. Follow up with your regular doctor. GO TO THE ER FOR ANY WORSENING SYMPTOMS Clinical Impressions Clinical Impression: Acute viral syndrome Stand Alone Forms Stand Alone Forms: Work/School Release Instructions Patient Instructions: DI for Viral Syndrome, Oseltamivir Discharge ED Provider: [facility] [place] HPI General Stated complaint: ba christine eye/ear pain n/v christine runny nose Time Seen by Provider: 05/07/23 10:12 Related Data Home Medications Medication Instructions Recorded Confirmed albuterol sulfate 2.5 mg/3 mL 2.5 mg inhalation Q6HP PRN 09/12/22 04/19/23 (0.083 %) solution for nebulization Shortness Of Breath levocetirizine 5 mg tablet (Xyzal) 5 mg PO DAILY 09/12/22 04/19/23 montelukast 10 mg tablet mg PO 04/19/23 04/19/23 Previous Rx's Medication Instructions Recorded albuterol sulfate 90 mcg/actuation 2 puff inhalation Q4-6H PRN 02/25/21 aerosol inhaler shortness of breath or wheezing #1 ea losartan 100 mg tablet 100 mg PO DAILY #30 tabs 04/22/22 hydrochlorothiazide 25 mg tablet 25 mg PO DAILY #30 tabs 09/12/22 atorvastatin 40 mg tablet 40 mg PO DAILY #90 tabs 10/11/22 fluticasone fur. 200 mcg-umeclid 1 inh inhalation DAILY #60 ea 10/11/22 62.5 mcg-vilant 25 mcg inhalat.powder (Trelegy Ellipta) acyclovir 800 mg tablet 800 mg PO 5XDAY 7 days #35 tabs 12/19/22 nystatin 100,000 unit/gram topical 1 applic topical TID PRN yeast #60 12/19/22 powder grams omeprazole 40 mg capsule,delayed See Rx Instructions .Route 02/27/23 release .COMPLEX #90 caps metoprolol succinate 50 mg 50 mg PO DAILY #90 tabs 04/19/23 tablet,extended release 24 hr benzonatate 100 mg capsule 100 mg PO TIDP PRN Cough #30 caps 05/07/23 ondansetron 4 mg disintegrating 4 mg PO Q8H PRN Nausea #12 tabs 05/07/23 tablet oseltamivir 75 mg capsule (Tamiflu) 75 mg PO BID #10 caps 05/07/23 Allergies Allergy/AdvReac Type Severity Reaction Status Date / Time sulfamethoxazole Allergy Mild NAUSEATED Verified 04/19/23 08:44 [From Bactrim] trimethoprim [From Bactrim] Allergy Mild NAUSEATED Verified 04/19/23 08:44 adhesive Allergy Verified 04/19/23 08:44 naproxen Allergy Nausea Verified 04/19/23 08:44 [facility] Disclaimer: The information contained in this section may have been updated after the patient was seen, as this information can be updated by other users. Medical History Hypertension Refill clinic medication management patient Social History Smoking Status: Never smoker alcohol intake: never substance use type: denies use current occupational status: employed Travel in the last 8 weeks: Inside the [place] household members: family housing: house caffeine: Yes ROS Obtained: Yes All systems reviewed & no additional complaints except as documented Constitutional Constitutional: Reports chills and Reports fever(s) Eyes Eyes: Denies eye discharge ENT Ears, Nose, Mouth, and Throat: Reports as per HPI Cardiovascular Cardiovascular: Denies chest pain Respiratory Respiratory: Denies chest congestion and Reports cough Gastrointestinal Gastrointestingal: Reports nausea; Denies abdominal pain, constipation, cramping, diarrhea or vomiting Musculoskeletal Musculoskeletal: Denies arthralgias Integumentary/Breasts Skin/Breast: Denies rash Neurologic Neurologic: Denies paresthesias Physical Exam General General appearance: alert and in no apparent distress Eye Eye exam: Present normal appearance, PERRL and EOMI ENT ENT exam: Present mucous membranes moist and normal external ear exam Expanded ENT Exam External ear exam: Present normal external inspection TM/Canal exam: Bilateral TM: erythema and bulging Nose exam: Absent sinus tenderness Nasal speculum exam: Bilateral: normal Mouth exam: Present normal external inspection; Absent drooling Teeth exam: Present normal inspection Throat exam: Present tonsillar erythema and tonsillomegaly Neck Neck exam: Present normal inspection, full ROM and trachea midline; Absent tenderness, lymphadenopathy or thyromegaly Chest Chest inspection: Present normal inspection and symmetric chest wall rise; Absent tenderness or rash Respiratory Respiratory exam: Present normal lung sounds bilaterally; Absent respiratory distress, wheezes, stridor or accessory muscle use Cardiovascular Cardiovascular exam: Present regular rate, normal rhythm and normal heart sounds Abdominal Exam Abdominal exam: Present soft; Absent distention, tenderness, guarding, rebound or rigidity Extremities Exam Extremities exam: Present normal inspection, full ROM and normal capillary refill; Absent tenderness or calf tenderness Back Exam Back exam: Present normal inspection and full ROM; Absent tenderness Neurological Exam Neurological exam: Present alert and oriented X3 Psychiatric Psychiatric exam: Present normal affect and normal mood Skin Skin exam: Present warm, dry, intact and normal color Lymphatic Lymphatic Findings: no adenopathy Medical Decision Making Medical Records Medical records reviewed: No I reviewed the patient's medical records. Antoni Inquiry Pt receiving controlled substance: No Lab Data Lab results reviewed: Yes I reviewed the patient's lab results.
[2023-05-07 10:24] LABS: UTC Influenza A Antigen Negative (Negative); UTC Influenza B Antigen Negative (Negative)
[2023-05-07 10:55] VITALS: BP 127/61; PULSE 73; RESP 18; TEMP 36.7; O2SAT 94
[2023-05-07 10:56] LABS: Influenza A, PCR Not Detected (NotDetected); Influenza B, PCR Not Detected (NotDetected)
[2023-05-07 11:23] LABS: Coronavirus 19, PCR Detected (NotDetected)
== END 2023-05-07 10:55 | disposition home or self-care (01) ==
PROVIDERS: Emergency Provider Nurse Practitioner Family; PCP Nurse Practitioner Family
DX: U07.1 COVID-19 (principal); R50.9 Fever, unspecified; R05.9 Cough, unspecified; R11.0 Nausea; I10 Essential (primary) hypertension
CPT/HCPCS: 87636; 87804; 99212; 99214; G0463

== ENCOUNTER 2023-05-27 11:48 | Emergency (ER) | payer MEDICAID, SELFPAY ==
[2023-05-27] VITALS (9 sets, daily range): BP systolic 165–193; BP diastolic 97–124; PULSE 84–101; RESP 18; TEMP 36.6; O2SAT 93–98; BMI 43.9
--- NOTE | 2023-05-27 12:10 | HMH.EDGENADL ---
Discharge Plan Disposition Patient Disposition: Home, Self-Care Condition: Good Prescriptions Prescriptions: New naproxen 500 mg tablet 500 mg PO BID PRN (Reason: pain) Qty: 20 0RF dicyclomine 20 mg tablet 20 mg PO QID PRN (Reason: abdominal pain) Qty: 20 0RF No Action albuterol sulfate 2.5 mg /3 mL (0.083 %) solution for nebulization 2.5 mg IH Q6HP PRN (Reason: Shortness Of Breath) levocetirizine [Xyzal] 5 mg tablet 5 mg PO DAILY hydrochlorothiazide 25 mg tablet 25 mg PO DAILY Qty: 30 2RF atorvastatin 40 mg tablet 40 mg PO DAILY Qty: 90 3RF Trelegy Ellipta 200-62.5-25 mcg blister with device 1 inh inhalation DAILY Qty: 60 2RF albuterol sulfate 90 mcg/actuation HFA aerosol inhaler 2 puff INHALATION Q4-6H PRN (Reason: shortness of breath or wheezing) Qty: 1 3RF montelukast 10 mg tablet PO metoprolol succinate 50 mg tablet extended release 24 hr 50 mg PO DAILY Qty: 90 3RF losartan 100 mg tablet 100 mg PO DAILY Qty: 30 5RF omeprazole 40 mg capsule,delayed release(DR/EC) See Rx Instructions .ROUTE .COMPLEX Qty: 90 0RF Dose Instruction: Take 1 capsule by mouth once daily Rx Instructions: Take 1 capsule by mouth once daily acyclovir 800 mg tablet 800 mg PO 5XDAY 7 Days Qty: 35 0RF Rx Instructions: while awake; give 5 doses in 24 hours nystatin 100,000 unit/gram powder 1 applic topical TID PRN (Reason: yeast) Qty: 60 0RF benzonatate [benzonatate] 100 mg capsule 100 mg PO TIDP PRN (Reason: Cough) Qty: 30 0RF oseltamivir [Tamiflu] 75 mg capsule 75 mg PO BID Qty: 10 0RF ondansetron 4 mg Tablet,Disintegrating 4 mg PO Q8H PRN (Reason: Nausea) Qty: 12 0RF Referrals Follow up/Referrals: Armen Harden MD [Staff Physician] - See instructions Jluis Burrows APRN [Primary Care Provider] - See instructions Activity Restrictions/Add. Instructions Additional Instructions/Restrictions: You were evaluated in the emergency department today. At this time, your CT scan and labs are reassuring, however this could potentially be related to gallbladder emptying issues. You also have a small amount of blood in your urine, which is nonspecific. Please follow-up with your primary care provider to ensure that this resolves. I have also provided you with information for general surgery to call them if you continue to have abdominal pain. Return to the emergency department for new or worsening symptoms. Clinical Impressions Clinical Impression: Abdominal pain, RUQ, Hematuria Instructions Patient Instructions: DI for Acute Abdominal Pain Discharge ED Provider: Tracee Martinez General Adult HPI General Chief complaint: Abdominal Pain Stated complaint: abd/back pain Time Seen by Provider: 05/27/23 11:59 Mode of Arrival: Ambulatory Source of Information: Patient and Significant Other Limitations: No Limitations Description of Symptoms (Recalled from ER Triage Doc. by RN): pt reports R lower back pain that radiates to her R flank/RLQ. pt states this has been ongoing x2wks. pt states the pain is constant, worse after eating, 10/10 and stabbing in nature. History of Present Illness HPI narrative: This patient is a 57-year-old female with a history of hypertension, hyperlipidemia, obesity, and COPD presenting to the emergency department for evaluation with concern for right flank pain radiating around to her right upper quadrant that has been going on for approximately 1 to 2 weeks. She states that it gets worse with eating. It was coming and going, but today it is constant and 10 out of 10. She notes is stabbing in nature. She states she thinks it is her gallbladder. Of note, she has not had a good bowel movement in several days. She denies any fevers, chills, nausea, vomiting, urinary symptoms, or other concerns. Related Data Home Medications Medication Instructions Recorded Confirmed albuterol sulfate 2.5 mg/3 mL 2.5 mg inhalation Q6HP PRN 09/12/22 04/19/23 (0.083 %) solution for nebulization Shortness Of Breath levocetirizine 5 mg tablet (Xyzal) 5 mg PO DAILY 09/12/22 04/19/23 montelukast 10 mg tablet mg PO 04/19/23 04/19/23 Previous Rx's Medication Instructions Recorded albuterol sulfate 90 mcg/actuation 2 puff inhalation Q4-6H PRN 02/25/21 aerosol inhaler shortness of breath or wheezing #1 ea losartan 100 mg tablet 100 mg PO DAILY #30 tabs 04/22/22 hydrochlorothiazide 25 mg tablet 25 mg PO DAILY #30 tabs 09/12/22 atorvastatin 40 mg tablet 40 mg PO DAILY #90 tabs 10/11/22 fluticasone fur. 200 mcg-umeclid 1 inh inhalation DAILY #60 ea 10/11/22 62.5 mcg-vilant 25 mcg inhalat.powder (Trelegy Ellipta) acyclovir 800 mg tablet 800 mg PO 5XDAY 7 days #35 tabs 12/19/22 nystatin 100,000 unit/gram topical 1 applic topical TID PRN yeast #60 12/19/22 powder grams metoprolol succinate 50 mg 50 mg PO DAILY #90 tabs 04/19/23 tablet,extended release 24 hr benzonatate 100 mg capsule 100 mg PO TIDP PRN Cough #30 caps 05/07/23 ondansetron 4 mg disintegrating 4 mg PO Q8H PRN Nausea #12 tabs 05/07/23 tablet oseltamivir 75 mg capsule (Tamiflu) 75 mg PO BID #10 caps 05/07/23 omeprazole 40 mg capsule,delayed See Rx Instructions .Route 05/26/23 release .COMPLEX #90 caps dicyclomine 20 mg tablet 20 mg PO QID PRN abdominal pain 05/27/23 #20 tabs naproxen 500 mg tablet 500 mg PO BID PRN pain #20 tabs 05/27/23 Allergies Allergy/AdvReac Type Severity Reaction Status Date / Time sulfamethoxazole Allergy Mild NAUSEATED Verified 05/27/23 12:29 [From Bactrim] trimethoprim [From Bactrim] Allergy Mild NAUSEATED Verified 05/27/23 12:29 adhesive Allergy Verified 05/27/23 12:29 naproxen Allergy Nausea Verified 05/27/23 12:29 [facility] Disclaimer: The information contained in this section may have been updated after the patient was seen, as this information can be updated by other users. Medical History Hypertension Refill clinic medication management patient Social History Smoking Status: Never smoker alcohol intake: never substance use type: denies use current occupational status: employed Travel in the last 8 weeks: Inside the [place] household members: family housing: house caffeine: Yes ROS Obtained: Yes All systems reviewed & no additional complaints except as documented Physical Exam General General appearance: alert, in no apparent distress and obese Head Head exam: atraumatic and normocephalic Eye Eye exam: Present normal appearance, PERRL and EOMI ENT ENT exam: Present normal exam, normal oropharynx, mucous membranes moist and normal external ear exam Neck Neck exam: Present normal inspection, full ROM and trachea midline; Absent tenderness Chest Chest inspection: Present normal inspection and symmetric chest wall rise; Absent tenderness Respiratory Respiratory exam: Present normal lung sounds bilaterally; Absent respiratory distress, wheezes, stridor or accessory muscle use Cardiovascular Cardiovascular exam: Present regular rate and normal rhythm Abdominal Exam Abdominal exam: Present soft, tenderness (Right upper quadrant, epigastric region) and normal bowel sounds; Absent distention, guarding, rebound or rigidity Extremities Exam Extremities exam: Present normal inspection, full ROM and normal capillary refill; Absent tenderness or edema Back Exam Back exam: Present normal inspection and full ROM; Absent tenderness Neurological Exam Neurological exam: Present alert, oriented X3, CN II-XII intact and normal gait; Absent motor sensory deficit Psychiatric Psychiatric exam: Present normal affect and normal mood Skin Skin exam: Present warm and dry Medical Decision Making Medical Records Medical records reviewed: Yes I reviewed the patient's medical records. Antoni Inquiry Pt receiving controlled substance: No Vital Signs: 05/27/23 12:04 05/27/23 11:59 05/27/23 12:15 Temperature Pulse Rate 99 H 98 H Pulse Rate [Left] 101 H Respiratory Rate 18 Blood Pressure 179/98 H 193/124 H Blood Pressure [Right Arm] 179/98 H Blood Pressure Mean [Right Arm] 125 Blood Pressure Source [Right Arm] Automatic Cuff Blood Pressure Position [Right Arm] Sitting 02 Sat by Pulse Oximetry 97 98 95 Oxygen Delivery Method Room Air Room Air 05/27/23 12:20 05/27/23 13:00 05/27/23 13:30 Temperature Pulse Rate 94 H 86 88 Pulse Rate [Left] Respiratory Rate Blood Pressure 165/109 H 177/97 H 190/103 H Blood Pressure [Right Arm] Blood Pressure Mean [Right Arm] Blood Pressure Source [Right Arm] Blood Pressure Position [Right Arm] 02 Sat by Pulse Oximetry 96 93 L 97 Oxygen Delivery Method Room Air Room Air Room Air 05/27/23 14:00 05/27/23 14:30 05/27/23 15:04 Temperature 98 F Pulse Rate 84 91 H 88 Pulse Rate [Left] Respiratory Rate 18 Blood Pressure 168/106 H 174/109 H 171/107 H Blood Pressure [Right Arm] Blood Pressure Mean [Right Arm] Blood Pressure Source [Right Arm] Blood Pressure Position [Right Arm] 02 Sat by Pulse Oximetry 96 96 Oxygen Delivery Method Room Air Room Air Lab Data Lab results reviewed: Yes I reviewed the patient's lab results. Lab Results 05/27/23 12:00: Urine Color Yellow, Urine Appearance Clear, Urine pH 6.0, Ur Specific [place] 1.015, Urine Protein Negative, Urine Glucose (UA) Negative, Urine Ketones Negative, Urine Blood 1+, Urine Nitrate Negative, Urine Bilirubin Negative, Urine Urobilinogen 0.2, Ur Leukocyte Esterase Negative, Urine RBC 3-5, Urine WBC None, Ur Squamous Epith Cells 3-5, Urine Bacteria Trace 05/27/23 12:05: WBC 3.9 L, RBC 5.17, Hgb 15.3, Hct 47.5 H, MCV 92.0, MCH 29.6, MCHC 32.2, RDW 15.0, Plt Count 272, MPV 8.2, Neut % (Auto) 42.3, Lymph % (Auto) 42.7, [place] % (Auto) 9.8 H, Eos % (Auto) 3.3, Baso % (Auto) 2.0, Neut # (Auto) 1.6 L, Lymph # (Auto) 1.7, [place] # (Auto) 0.4, Eos # (Auto) 0.1, Baso # (Auto) 0.1, Sodium 143, Potassium 3.5, Chloride 106, Carbon Dioxide 30, Anion Gap 10.5, BUN 8, Creatinine 0.50 L, Estimated Creat Clear 96, Estimated GFR 126, Est GFR ( Amer) 153, Glucose 138 H, Calcium 8.9, Total Bilirubin 0.4, AST 29, ALT 23, Alkaline Phosphatase 116, Total Protein 6.6, Albumin 4.0, Globulin 2.6, Albumin/Globulin Ratio 1.5, Lipase 75 05/27/23 12:05 05/27/23 12:05 Orders (Tests/Meds): ED MEDICATIONS Discontinued Medications Generic Name Dose Route Start Last Admin Trade Name Jorgeq PRN Reason Stop Dose Admin Acetaminophen 1,000 mg 05/27/23 12:09 05/27/23 12:32 Acetaminophen 1,000mg/100ml Vial IV 05/27/23 12:10 1,000 mg ONCE ONE Administration Lactated Ringer's 1,000 mls @ 999 mls/hr 05/27/23 12:09 05/27/23 12:30 Lactated Ringer's 1000 Ml Bag IV 05/27/23 13:09 999 mls/hr .Q1H1M ONE Administration Iopamidol 75 ml 05/27/23 13:16 05/27/23 13:21 Iopamidol-370 (76%);100ml Bottle IV 05/27/23 13:17 75 ml ONCE ONE Administration Ketorolac Tromethamine 15 mg 05/27/23 12:09 05/27/23 12:30 Ketorolac 30mg/Ml Vial IV 05/27/23 12:10 15 mg ONCE ONE Administration Ondansetron HCl 4 mg 05/27/23 12:09 05/27/23 12:32 Ondansetron 4mg/2ml Vial IV 05/27/23 12:10 4 mg ONCE ONE Administration Sodium Chloride 10 ml 05/27/23 13:16 05/27/23 13:21 Sodium Chloride 0.9% 10ml Syr (Rad Only) IV 06/26/23 13:15 10 ml NEEDED PRN Administration Maintain IV Site ORDERS Category Date Time Status CT abdomen pelvis w con Stat Cat Scan 05/27/23 12:17 Completed Complete Blood Count Auto Diff Stat Lab 05/27/23 12:05 Completed Comprehensive Metabolic Panel Stat Lab 05/27/23 12:05 Completed Lipase Stat Lab 05/27/23 12:05 Completed Urinalysis and Microscopic Stat Lab 05/27/23 12:00 Completed ECG Data Tracing #1: I reviewed this ECG and interpreted as documented below: Normal sinus rhythm with a ventricular rate of [address] elevations concerning for ischemia. Left axis deviation noted. Normal intervals ECG initial impression date: 05/27/23 ECG initial impression time: 12:31 Medical Decision Narrative: In summary, this patient is a 57-year-old female presenting to the Emergency Department for evaluation of right upper quadrant/right flank pain. Differential diagnoses considered include but are not limited to hepatitis, constipation, cholecystitis, biliary colic, pancreatitis. Ruling out the most morbid conditions drove assessment. On exam, the patient is well-appearing. She has reassuring vital signs on cardiac telemetry. Abdominal exam demonstrates right upper quadrant and epigastric tenderness. No other acute findings on exam. Workup included CBC, CMP, lipase, and urinalysis. She was given a bolus of IV fluids as well as IV Toradol, acetaminophen, and Zofran for symptomatic improvement. Labs demonstrated mild leukocytosis with a white count of 11. CT scan was obtained for continued pain. I independently interpreted CT scan prior to the radiologist read and noted adrenal nodule on the left adrenal gland, which I notified the patient of. I advised that she follow-up closely outpatient for this. She also had mild splenomegaly, which I notified her of.. Please see their read for final interpretation. Labs were obtained that demonstrated no acute concerning abnormalities. On reassessment, patient had good improvement after administration of interventions above. She is feeling better. At this time, unsure exactly what is causing her right upper quadrant abdominal pain, however her labs are reassuring and CT scan is not concerning for acute surgical pathology. Is possible she could have colonic pain, musculoskeletal pain, or issues with biliary emptying. For this, so she can follow-up outpatient. She was given instructions to close a patient follow-up, prescription for naproxen, and strict return precautions. She was discharged in stable condition after all questions were answered. Critical Care Critical Care Time Critical Care Time: No
[2023-05-27 12:16] LABS: Microscopic, Urine URINE MICROSCOPIC (MICROSCOPIC)
[2023-05-27 12:17] LABS: Appearance,Urine CLEAR (Clear); Bilirubin,Urine Negative (Negative); Blood, Urine 1+ (Negative); Color,Urine YELLOW (Yellow); Glucose,Urine (UA) Negative (Negative); Ketones,Urine Negative (Negative); Leukocyte Esterase,Urine Negative (Negative); Nitrate,Urine Negative (Negative); Protein,Urine Negative (Negative); Specific Gravity, Urine 1.015 (1.005-1.030); Urobilinogen,Urine 0.2 EU/dl (0.2)
--- NOTE | 2023-05-27 12:17 | CT_ITS ---
PROCEDURE INFORMATION: Exam: CT Abdomen And Pelvis With Contrast Exam date and time: 05/27/2023 1:00 PM Age: 57 years old Clinical indication: Abdominal pain; Localized; Right upper quadrant (ruq); Additional info: Ruq/epigastric pain TECHNIQUE: Imaging protocol: Computed tomography of the abdomen and pelvis with contrast. Radiation optimization: All CT scans at this facility use at least one of these dose optimization techniques: automated exposure control; mA and/or kV adjustment per patient size (includes targeted exams where dose is matched to clinical indication); or iterative reconstruction. Contrast material: ISOVUE; Contrast volume: 100 ml; Contrast route: IV; COMPARISON: ABDPELW CT abdomen pelvis w con 04/11/2018 7:10 PM FINDINGS: Heart: There is calcification of the aortic valve annulus. There is calcification of the mitral valve annulus. Coronary arteries: Coronary artery calcifications may indicate coronary artery disease. Diaphragm: Moderate hiatal hernia Liver: Normal. No mass. Gallbladder and bile ducts: The gallbladder is unremarkable Pancreas: Normal. No ductal dilation. Spleen: Borderline splenomegaly 13.6 cm.. Adrenal glands: Left adrenal nodule 2.6 x 1.5 cm and 31 Hounsfield units.. It is stable since March 2018. Kidneys and ureters: Normal. No hydronephrosis. Stomach and bowel: Unremarkable. No obstruction. No mucosal thickening. Appendix: Normal appendix Intraperitoneal space: Unremarkable. No free air. No significant fluid collection. Vasculature: Unremarkable. No abdominal aortic aneurysm. Lymph nodes: Unremarkable. No enlarged lymph nodes. Urinary bladder: Bladder 10 cm. No mass Reproductive: Unremarkable as visualized. Bones/joints: Unremarkable. No acute fracture. Soft tissues: Unremarkable. IMPRESSION: 1. Left adrenal nodule 2.6 x 1.5 cm and 31 Hounsfield units.. It is stable since March 2018. No follow-up is necessary. (Reference: Ev) References: Ev JAMA, et al. Management of Incidental Adrenal Masses: A White Paper of the ACR Incidental Findings Committee. J Am Divina Radiol. 2017;14(8):6236-8630. 2. Borderline splenomegaly 13.6 cm.. Differential diagnosis of splenomegaly is lymphoma/leukemia, mononucleosis, hemolytic anemia, portal hypertension.
--- NOTE | 2023-05-27 12:19 | ECG_ITS ---
APPROVED REPORT Exam: Resting ECG HR:92 bpm ECG Measurements Heart Rate 92 AXES MS 158 P 37 QRSd 85 QRS -33 QT 348 T 64 QTc 398 Conclusion SINUS RHYTHM LEFT AXIS DEVIATION [QRS AXIS < -30] LOW QRS VOLTAGE IN PRECORDIAL LEADS [QRS DEFLECTION < 1.0 mV IN CHEST LEADS] POSSIBLE ANTERIOR MYOCARDIAL INFARCTION , PROBABLY OLD [30 ms Q WAVE IN V3/V4, OR R < 0.2 mV IN V4] No acute NC Electronically signed by : BALDEV GORE, 05/27/2023 16:16:35
[2023-05-27 12:24] LABS: Basophils # 0.1 K/mm3 (0-0.2); Eosinophils # 0.1 K/mm3 (0.0-0.4); Eosinophils % 3.3 % (0.1-12.0); Hematocrit 47.5 % (37.0-47.0); Hemoglobin 15.3 g/dL (12.2-16.2); Lymphocytes # 1.7 K/mm3 (0.7-4.5); Lymphocytes % 42.7 % (10-50); Mean Corpuscular HGB Conc 32.2 g/dL (31.8-35.4); Mean Corpuscular Hemoglobin 29.6 pg (27.0-31.2); Mean Platelet Volume 8.2 fl (7.4-10.4); Monocytes # 0.4 K/mm3 (0.1-1.0); Monocytes % 9.8 % (1.7-9.3); Neutrophils # 1.6 K/mm3 (1.8-7.8); Neutrophils % 42.3 % (37.0-80.0); Platelet Count 272 K/mm3 (142-424); Red Blood Count 5.17 M/mm3 (4.20-5.40); White Blood Count 3.9 K/mm3 (4.8-10.8)
[2023-05-27 12:29] LABS: Alanine Aminotransferase 23 U/L (12-78); Albumin/Globulin Ratio 1.5 (1.1-1.8); Alkaline Phosphatase 116 U/L (38-126); Anion Gap 10.5 mEq/L (5-15); Aspartate Amino Transferase 29 U/L (14-36); Bilirubin,Total 0.4 mg/dl (0.2-1.3); Blood Urea Nitrogen 8 mg/dl (7-17); Calcium 8.9 mg/dl (8.4-10.2); Carbon Dioxide 30 mmol/L (22.0-30.0); Chloride 106 mmol/L (98-107); Creatinine Clearance Estimated 96 mL/min (50-200); Estimated Glomerular Filt Rate 126 ml/min (>60); GFR (African American) 153 ML/MIN (>60); Globulin 2.6 g/dL (1.3-3.2); Glucose 138 mg/dl (74-100); Lipase 75 U/L (23-300); Potassium 3.5 mmoL/L (3.5-5.1); Sodium 143 mmol/L (136-145); Total Protein,Serum 6.6 g/dl (6.3-8.2)
[2023-05-27] MEDS: KETOROLAC 30MG/ML VIAL 15 MG IV (12:30)
[2023-05-27] MEDS: LACTATED RINGERS 1000ML 1,000 ML 999 ML IV (12:30)
[2023-05-27] MEDS: ACETAMINOPHEN 1,000MG/100ML VIAL 1000 MG IV (12:32)
[2023-05-27] MEDS: ONDANSETRON 4MG/2ML VIAL 4 MG IV (12:32)
[2023-05-27 12:36] LABS: Bacteria,Urine Trace /lpf
--- NOTE | 2023-05-27 13:05 | PC.NURSE ---
PT GONE TO CT
[2023-05-27] MEDS: IOPAMIDOL-370 (76%);100ML BOTTLE 75 ML IV (13:21)
[2023-05-27] MEDS: SODIUM CHLORIDE 0.9% 10ML SYR (RAD ONLY) 10 ML IV (13:21)
== END 2023-05-27 15:06 | disposition home or self-care (01) ==
PROVIDERS: Emergency Provider Emergency Medicine; PCP Nurse Practitioner Family
DX: R10.11 Right upper quadrant pain (principal); R10.31 Right lower quadrant pain; R31.9 Hematuria, unspecified; M54.50 Low back pain, unspecified; D72.829 Elevated white blood cell count, unspecified; E27.9 Disorder of adrenal gland, unspecified; I10 Essential (primary) hypertension; E78.5 Hyperlipidemia, unspecified; J44.9 Chronic obstructive pulmonary disease, unspecified
CPT/HCPCS: 74177; 80053; 81001; 83690; 85025; 93005; 96361; 96374; 96375; 99285; J0131; J2405; Q9967

== ENCOUNTER 2023-08-29 15:25 | Outpatient (CLI) | payer MEDICAID, SELFPAY ==
[2023-08-29 18:17] LABS: Basophils # 0.1 K/mm3 (0-0.2); Basophils % 1.1 % (0.1-2.0); Eosinophils # 0.2 K/mm3 (0.0-0.4); Eosinophils % 3.6 % (0.1-12.0); Hematocrit 45.2 % (37.0-47.0); Hemoglobin 14.6 g/dL (12.2-16.2); Lymphocytes # 2.1 K/mm3 (0.7-4.5); Lymphocytes % 31.6 % (10-50); Mean Corpuscular HGB Conc 32.3 g/dL (31.8-35.4); Mean Corpuscular Hemoglobin 29.2 pg (27.0-31.2); Mean Corpuscular Volume 90.6 fl (81-99); Mean Platelet Volume 8.7 fl (7.4-10.4); Monocytes # 0.4 K/mm3 (0.1-1.0); Monocytes % 5.7 % (1.7-9.3); Neutrophils # 3.9 K/mm3 (1.8-7.8); Neutrophils % 57.9 % (37.0-80.0); Platelet Count 258 K/mm3 (142-424); Red Blood Count 4.99 M/mm3 (4.20-5.40); Red Cell Distribution Width 15.1 % (11.5-17.5); White Blood Count 6.7 K/mm3 (4.8-10.8)
[2023-08-29 19:33] LABS: Hemoglobin A1C 5.8 % (4.0-6.0)
[2023-08-29 19:50] LABS: Alanine Aminotransferase 22 U/L (12-78); Albumin Level 3.6 g/dl (3.5-5.0); Albumin/Globulin Ratio 1.4 (1.1-1.8); Alkaline Phosphatase 124 U/L (38-126); Anion Gap 15.1 mEq/L (5-15); Aspartate Amino Transferase 26 U/L (14-36); Bilirubin,Total 0.4 mg/dl (0.2-1.3); Blood Urea Nitrogen 15 mg/dl (7-17); Calcium 9.3 mg/dl (8.4-10.2); Carbon Dioxide 23 mmol/L (22.0-30.0); Chloride 106 mmol/L (98-107); Chol/HDL Ratio 4.8 (1-3.5); Cholesterol 209 mg/dl (140-200); Estimated Glomerular Filt Rate 73 ml/min (>60); GFR (African American) 89 ML/MIN (>60); Globulin 2.5 g/dL (1.3-3.2); Glucose 150 mg/dl (74-100); HDL Cholesterol 44 mg/dl (40-60); Potassium 4.1 mmoL/L (3.5-5.1); Sodium 140 mmol/L (136-145); Total Protein,Serum 6.1 g/dl (6.3-8.2)
[2023-08-29 19:52] LABS: Triglycerides 448 mg/dl (30-150)
[2023-08-29 20:01] LABS: Direct LDL Cholesterol 112.96 mg/dL (100-129)
[2023-08-29 20:09] LABS: 25-OH Vitamin D, Total < 12.8 ng/mL (30-100)
[2023-08-29 20:22] LABS: Thyroid Stimulating Hormone 1.73 uIU/mL (0.465-4.68)
== END 2023-08-29 23:59 | disposition home or self-care (01) ==
LOC: LAB.DROPOF 08-30 15:25
PROVIDERS: PCP Nurse Practitioner Family; Visit Provider Nurse Practitioner Family
DX: E55.9 Vitamin D deficiency, unspecified (principal); E66.01 Morbid (severe) obesity due to excess calories; Z68.41 Body mass index [BMI] 40.0-44.9, adult
CPT/HCPCS: 80050; 80053; 80061; 82306; 83036; 84443; 85025

== ENCOUNTER 2023-09-22 14:13 | Outpatient (CLI) | payer MEDICAID, SELFPAY ==
--- NOTE | 2023-09-22 14:14 | US_ITS ---
FINAL REPORT CLINICAL HISTORY: Nodules Upper RFA and RAC FINDINGS: ULTRASOUND SOFT TISSUE LIMITED, ATTENTION RIGHT UPPER EXTREMITY TOWARD REGIONS OF PALPABLE ABNORMALITY FINDINGS: There is a prominent area of hypoechoic tissue tissue in the right forearm at the region of the palpable abnormality. This tissue is isoechoic to adjacent subcutaneous fat. This is favored to represent a lipoma measuring 21 x 18 x 11 mm. A 2nd area of palpable abnormality near the antecubital fossa shows no focal lesion. No focal fluid collection is seen. IMPRESSION: 1. Probable 21 mm lipoma accounting for one of the areas of palpable abnormality 2. No discrete lesion at the 2nd site of the reported palpable abnormality Authenticated and ERN
== END 2023-09-22 23:59 | disposition home or self-care (01) ==
LOC: RAD 14:14
PROVIDERS: PCP Nurse Practitioner Family; Visit Provider Nurse Practitioner Family
DX: R22.31 Localized swelling, mass and lump, right upper limb (principal)
CPT/HCPCS: 76882

== ENCOUNTER 2023-10-13 06:27 | Day surgery (SDC) | payer MEDICAID, SELFPAY ==
[2023-10-13 06:57] VITALS: BP 193/103; PULSE 66; RESP 18; TEMP 36.4; O2SAT 99; BMI 42.0
[2023-10-13] MEDS: LIDOCAINE 1% 20ML MDV 20 ML (07:29)
[2023-10-13 07:40] VITALS: BP 194/97; PULSE 55; RESP 18; TEMP 36.4; O2SAT 98
--- NOTE | 2023-10-13 08:24 | EXP.OP.NOTE ---
Date of procedure: 10/13/23 Pre-op Diagnosis:: Right arm lipoma (3cm) Post-op Diagnosis:: same Procedure performed:: Excision right arm lipoma (3cm) Surgeon:: Darci Diaz MD Anesthesia: local Estimated blood loss (mL): 5 Operative findings:: lesion excised in toto Operative note:: After informed consent was obtained, the patient was taken to the procedure room. Her right mid-arm was prepped and draped in a sterile fashion. After infiltration with local anesthetic an incision was made overlying the palpable lesion. A combination of sharp dissection and was used to dissect through the deeper SQ tissue. The lipomatous lesion the excised from surrounding tissue and then passed off for pathologic evaluation. Skin was closed with 4-0 nylon in an interrupted mattress fashion. Dressing were applied and the patient was discharged in good condition. Condition: stable Disposition: no change Specimens:: RUE lipoma Complications:: no immediate
== END 2023-10-13 07:50 | disposition home or self-care (01) ==
PROVIDERS: PCP Nurse Practitioner Family; Visit Provider Surgery
PROC: (CPT 11403; principal; 2023-10-13 07:30)
DX: D17.21 Benign lipomatous neoplasm of skin and subcutaneous tissue of right arm (principal)
CPT/HCPCS: 11403

== ENCOUNTER 2024-03-06 06:23 | Day surgery (SDC) | payer MEDICAID, SELFPAY ==
[2024-03-01 14:54] VITALS: BMI 41.1
[2024-03-06 06:52] VITALS: BP 184/81; PULSE 62; RESP 18; TEMP 36.6; O2SAT 99
[2024-03-06] MEDS: LACTATED RINGERS 1000ML 1,000 ML 25 ML IV (07:02)
--- NOTE | 2024-03-06 08:08 | EXP.HP ---
History of Present Illness *Admission Date: 03/06/24 *Reason for visit:: Heartburn/reflux/dyspepsia and dysphagia for upper endoscopy and screening *History of present illness: Mrs. Rodríguez is a 58-year-old female who is here for diagnostic upper endoscopy secondary to chronic heartburn/reflux, dyspepsia and dysphagia and colonoscopy for initial screening. The examination is deemed medically necessary for EGD and colonoscopy. The patient has been seen, interviewed and examined prior to the procedure by both myself and the anesthesia provider. [facility] Disclaimer: The information contained in this section may have been updated after the patient was seen, as this information can be updated by other users. Medical History (Updated 03/06/24 @ 08:10 by Da Arango II, MD) Colon cancer screening Lipoma of right upper extremity Murmur Asthma GERD (gastroesophageal reflux disease) Hypertension Refill clinic medication management patient Surgical History H/O repair of right rotator cuff History of tubal ligation Family History Other Family history of asthma Family history of diabetes mellitus Family history of heart disease Social History (Updated 03/06/24 @ 06:53 by Kristi Welch RN) Smoking Status: Never smoker alcohol intake: never substance use type: denies use current occupational status: employed Travel in the last 8 weeks: None household members: family housing: house caffeine: Yes Other Medical History Have you received the Flu Vaccine for this season: No Have you received the Pneumonia Vaccine: Yes Review of Systems Review of Systems Review of systems (narrative): Negative *Cardiovascular Comments: Negative *Gastrointestinal Comments: Negative *Genitourinary Comments: Negative *Musculoskeletal Comments: Negative *Neurologic Comments: Negative Meds Home Medications and Allergies Home Medications ?Medication ?Instructions ?Recorded ?Confirmed ?Type albuterol sulfate 2.5 mg/3 mL 2.5 mg inhalation Q6HP PRN 09/12/22 03/01/24 History (0.083 %) solution for nebulization Shortness Of Breath levocetirizine 5 mg tablet (Xyzal) 5 mg PO DAILY 09/12/22 03/01/24 History nystatin 100,000 unit/gram topical 1 applic topical TID PRN yeast #60 12/19/22 03/06/24 Rx powder grams montelukast 10 mg tablet 10 mg PO DAILY 04/19/23 03/06/24 History ondansetron 4 mg disintegrating 4 mg PO Q8H PRN Nausea #12 tabs 05/07/23 03/01/24 Rx tablet omeprazole 40 mg capsule,delayed See Rx Instructions .Route 08/21/23 03/06/24 Rx release .COMPLEX #90 caps atorvastatin 40 mg tablet 40 mg PO DAILY #90 tabs 09/14/23 03/01/24 Rx hydrochlorothiazide 25 mg tablet 25 mg PO DAILY #90 tabs 09/14/23 03/01/24 Rx losartan 100 mg tablet 100 mg PO DAILY #90 tabs 09/14/23 03/06/24 Rx fluticasone fur. 200 mcg-umeclid See Rx Instructions .Route 12/12/23 03/06/24 Rx 62.5 mcg-vilant 25 mcg .COMPLEX #60 ea inhalat.powder (Trelegy Ellipta) dicyclomine 20 mg tablet 20 mg PO QID PRN abdominal pain 01/02/24 03/01/24 History escitalopram oxalate 10 mg tablet 10 mg PO DAILY #30 tabs 01/02/24 03/01/24 Rx (Lexapro) nystatin 100,000 unit/gram topical 1 applic topical BID #30 grams 01/02/24 03/06/24 Rx cream cholecalciferol (vitamin D3) 1,250 See Rx Instructions .Route 02/13/24 03/06/24 Rx mcg (50,000 unit) capsule .COMPLEX #12 caps sodium,potassium,mag sulfates 17.5 See Rx Instructions PO .COMPLEX 02/23/24 03/01/24 Rx gram-3.13 gram-1.6 gram oral soln #354 mL (Suprep Bowel Prep Kit) metoprolol succinate 100 mg 100 mg PO DAILY #30 tabs 02/26/24 03/06/24 Rx tablet,extended release 24 hr New Prescriptions to Start Prescriptions: Allergies Allergy/AdvReac Type Severity Reaction Status Date / Time sulfamethoxazole (From Allergy Mild NAUSEATED Verified 03/06/24 06:47 Bactrim) trimethoprim (From Bactrim) Allergy Mild NAUSEATED Verified 03/06/24 06:47 adhesive Allergy Rash Verified 03/06/24 06:47 Exam Data for Last 24 hours Vital signs and Labs for Last 24 Hours: Temp Pulse Resp BP Pulse Ox O2 Del Method 97.9 F 62 18 184/81 H 99 Room Air 03/06/24 06:52 03/06/24 06:52 03/06/24 06:52 03/06/24 06:52 03/06/24 06:52 03/06/24 06:52 *Routine HEENT Exam Head: Present normocephalic Eye: Present EOMI and PERRL ENT: Present mucous membranes moist *Routine Neck Exam Neck: Present supple *Routine Respiratory Exam Respiratory: Present CTA bilaterally *Routine Cardiovascular Exam Cardiovascular: Present RRR *Routine Abdominal Exam Abdominal: Present soft and normoactive bowel sounds; Absent tenderness *Routine Rectal Exam Rectal:: deferred *Routine Genitalia Exam Genitalia:: deferred *Routine Extremities Exam Extremities: Absent cyanosis, clubbing or edema *Routine Skin Exam Skin: Present warm; Absent rash *Routine Neurological Exam Neurological: Present alert and oriented X3 Assessment and Plan *Assessment and plan (1) Dysphagia: Status: Acute Category: Medical Code(s): R13.10 - Dysphagia, unspecified (2) GERD (gastroesophageal reflux disease): Status: Acute Category: Medical Code(s): K21.9 - Gastro-esophageal reflux disease without esophagitis (3) Heartburn: Status: Acute Category: Medical Code(s): R12 - Heartburn (4) Functional dyspepsia: Status: Acute Category: Medical Code(s): K30 - Functional dyspepsia (5) Screening for colon cancer: Status: Acute Category: Medical Code(s): Z12.11 - Encounter for screening for malignant neoplasm of colon Plan A/P: 1. Dysphagia/intractable GERD and dyspepsia for upper endoscopy and screening for colonoscopy colon cancer for is the preprocedural diagnosis. The patient will be anesthetized/sedated using MAC sedation. The patient has been seen and examined. Cardiac and lung assessment prior to the examination is stable. Proceed with planned EGD and colonoscopy
[2024-03-06 08:09] VITALS: O2SAT 100
--- NOTE | 2024-03-06 08:17 | P.PCN_ITS ---
[facility] Procedure Note Date: 03/06/24 Time: 08:17 Procedure Note:: Upper Endoscopy Procedure Report: Esophagogastroduodenoscopy [] Endoscopost: Da Arango II, MD Referring Physician: RICHAR Heath Date of Procedure: March 06, 2024 Equipment: Olympus GIF 190 standard upper endoscope Sedation: MAC sedation Indications: Mrs. Rodríguez is a 58-year-old female who is here for diagnostic/therapeutic upper endoscopy secondary to intermittent dysphagia. She will get show on solids but sometimes also on liquids. She reports longstanding heartburn and reflux with pyrosis. She does get some epigastric and retrosternal pain and discomfort. She does get some intermittent nausea and early satiety. Her last upper endoscopy was 10 to 12 years ago and she has been on omeprazole 40 mg daily and sometimes twice daily. She does get some bloating, belching and globus sensation. She does have some chronic constipation. Procedure: Prior to the procedure, a history and physical exam was performed, and patient's medications and allergies were reviewed. The risks, benefits and alternatives of the sedation and procedure were discussed with the patient. All questions were answered and informed consent was obtained. The patient was brought to the procedure room. Patient identification and proposed procedure were verified by the physician and the nurse. The patient was placed in a left lateral decubitus position and the scope was passed under direct vision. Throughout the procedure, the patient's blood pressure, pulse, and oxygen saturations were monitored continuously. The upper GI endoscopy was accomplished without difficulty. The patient tolerated the procedure well. Findings: The scope was passed directly into the upper esophagus and advanced to the third portion of the duodenum. The post bulbar duodenum and duodenal bulb were normal with normal mucosa and conniventes. The scope was withdrawn through a normal duodenal bulb and pylorus into the stomach. There was some linear reactive and nodular gastropathy of the antrum. There was mild bile reflux. There was minimal chronic gastritis of the body and fundus. Upon retroflexion there was a large hiatal hernia. The diaphragmatic hiatus was at 40 cm. The top of the gastric folds and GE junction were at 32 cm leaving an 8 cm hiatal hernia. Biopsies were taken from the antrum. The scope was then withdrawn into the esophagus. There was a serrated Z-line but no evidence of Burgos's esophagus. There was a single erosion at the GE junction (grade A LA classification reflux esophagitis. A biopsy was taken at the GE junction. There were tertiary contractions and evidence of mild esophageal dysmotility. The entire esophagus was dilated to 60 Georgian/20 mm with a TTS hydrostatic balloon. There was mild resistance at the cricopharyngeus. The remainder of the esophageal mucosa was normal. Impression: 1. Cricopharyngeal spasm status post dilation to 20 mm 2. Large 8 cm hiatal hernia (not paraesophageal) with grade A LA classification reflux esophagitis and no Burgos's 3. Nodular antral reactive gastropathy Plan: I will follow-up the biopsies. I would consider the addition of Baljinder. I do feel that most of her reflux is functional and we will discuss treatment options including fiber bowel regimen and possibly promotility therapy. I will proceed with screening colonoscopy.
--- NOTE | 2024-03-06 08:22 | P.PCN_ITS ---
[facility] Procedure Note Date: 03/06/24 Time: 08:35 Procedure Note:: Colonoscopy Procedure Report: Colonoscopy with cold and hot snare polypectomy Endoscopist: Da Arango II, MD Referring physician: RICHAR Heath Date of Procedure: March 06, 2024 Equipment: Olympus 190 variable stiffness pediatric colonoscope Sedation: MAC sedation Indication: Mrs. Rodríguez is a 58-year-old female who is here for initial screening colonoscopy. The patient does have some chronic constipation. She reports no rectal bleeding, weight loss or family history of colon cancer. Procedure: Prior to the procedure, a history and physical exam was performed, and patient's medications and allergies were reviewed. The risks, benefits and alternatives of the sedation and procedure were discussed with the patient. All questions were answered and informed consent was obtained. The patient was brought to the procedure room. Patient identification and proposed procedure were verified by the physician and the nurse. The patient was placed in a left lateral decubitus position and the scope was passed under direct vision. Throughout the procedure, the patient's blood pressure, pulse, and oxygen saturations were monitored continuously. The colonoscopy was accomplished without difficulty. The patient tolerated the procedure well. Findings: On digital rectal examination there was normal rectal tone. There were no external hemorrhoids. The colonoscope was introduced through the anal canal to the rectum and advanced to the cecum. The ileocecal valve and appendiceal orifice were identified. The scope was advanced a short distance into the ileum which appeared grossly normal. The scope was then withdrawn into the colon. There were 4 polyps (descending x 1 (9 mm) and transverse x 3 (3, 4 and 11 mm)). The larger transverse polyp was pedunculated and removed via snare cautery. The other polyps were removed via cold snare polypectomy. The remaining cecum, ascending and transverse colon and mucosa were grossly normal. There were extensively scattered diverticuli throughout the colon but more predominantly in the descending and sigmoid colon (LEFT colon). The rectum itself was normal. Upon retroflexion within the rectum there were grade 1-2 internal hemorrhoids. The preparation was excellent throughout with [place] Preparation Score of 9. The cecal time was 13 minutes. Impression: 1. Colonic polyps x 4 (ranging in size from 3 to 11 mm) 2. Extensive pandiverticulosis 3. Grade 1-2 internal hemorrhoids Plan: I will follow-up the polyp histology and recommend repeat surveillance colonoscopy again in 3 to 5 years based upon the pathology. I would encourage a fiber bowel regimen (combined MiraLAX plus Citrucel) on a long-term daily maintenance basis.
[2024-03-06 08:40] VITALS: BP 96/54; PULSE 54; RESP 18; TEMP 36.4; O2SAT 96
[2024-03-06 08:50] VITALS: BP 112/61; PULSE 57; RESP 18; TEMP 36.4; O2SAT 96
[2024-03-06 09:00] VITALS: BP 136/63; PULSE 58; RESP 18; O2SAT 96
[2024-03-06 09:10] VITALS: BP 137/71; PULSE 59; RESP 17; TEMP 36.4; O2SAT 96
== END 2024-03-06 09:13 | disposition home or self-care (01) ==
PROVIDERS: PCP Nurse Practitioner Family; Visit Provider Internal Medicine Gastroenterology
PROC: 0DJ08ZZ Inspection of Upper Intestinal Tract, Via Natural or Artificial Opening Endoscopic (ICD-10-PCS; CPT 43235; principal; 2024-03-06 08:00)
DX: R13.10 Dysphagia, unspecified (principal); K21.9 Gastro-esophageal reflux disease without esophagitis; K30 Functional dyspepsia; Z12.11 Encounter for screening for malignant neoplasm of colon; R11.0 Nausea; R68.81 Early satiety; K29.70 Gastritis, unspecified, without bleeding; K31.9 Disease of stomach and duodenum, unspecified; K44.9 Diaphragmatic hernia without obstruction or gangrene; J39.2 Other diseases of pharynx; K22.9 Disease of esophagus, unspecified; K59.00 Constipation, unspecified; K63.5 Polyp of colon; K57.30 Diverticulosis of large intestine without perforation or abscess without bleeding; K64.8 Other hemorrhoids
CPT/HCPCS: 43239; 43249; 45385; C1726; J7120

== ENCOUNTER 2024-04-10 08:42 | Emergency (ER) | payer MEDICAID, SELFPAY ==
[2024-04-10 08:43] VITALS: BP 186/85; PULSE 64; RESP 16; TEMP 36.5; O2SAT 97; BMI 40.2
[2024-04-10 08:47] VITALS: BP 186/85; PULSE 61; O2SAT 96
--- NOTE | 2024-04-10 08:57 | CT_ITS ---
FINAL REPORT TECHNIQUE: Axial CT without contrast This study was performed with techniques to keep radiation doses as low as reasonably achievable, (ALARA). Individualized dose reduction techniques using automated exposure control or adjustment of mA and/or kV according to the patient''s size were employed. CLINICAL HISTORY: fall onto R hip FINDINGS: There is no fracture or dislocation. There are mild degenerative changes of the sacroiliac joints and pubic symphysis. No obvious soft tissue hematoma identified. IMPRESSION: No acute bony abnormality. Reviewed, Interpreted and Dictated by Katrin Rosario MD Transcribed by Laila Guzman Authenticated and [facility]
--- NOTE | 2024-04-10 08:57 | CT_ITS ---
FINAL REPORT TECHNIQUE: Noncontrast exam This study was performed with techniques to keep radiation doses as low as reasonably achievable, (ALARA). Individualized dose reduction techniques using automated exposure control or adjustment of mA and/or kV according to the patient''s size were employed. CLINICAL HISTORY: fall, struck R occiput FINDINGS: No abnormal density is seen. Ventricles are normal. There is no hemorrhage. There is a hyperdensity in the region of the foramen of Lockhart near the third ventricle measuring 5 mm, may represent incidental colloid cyst. Bone windows show no evidence of fracture. IMPRESSION: No acute intracranial abnormality. Possible hyperdense mass near the foramen of Lockhart which at this location most commonly represents a colloid cyst. Consider nonemergent follow-up MRI with contrast. Reviewed, Interpreted and Dictated by Katrin Rosario MD Transcribed by Laila Guzman Authenticated and [facility]
--- NOTE | 2024-04-10 08:57 | CT_ITS ---
FINAL REPORT TECHNIQUE: Thin section axial CT with sagittal reconstruction without contrast This study was performed with techniques to keep radiation doses as low as reasonably achievable, (ALARA). Individualized dose reduction techniques using automated exposure control or adjustment of mA and/or kV according to the patient''s size were employed. CLINICAL HISTORY: fall, struck R occiput FINDINGS: No fracture is seen. There is mild anterolisthesis of C6 on 7, considered degenerative. There is mild facet arthropathy and degenerative disc disease. IMPRESSION: No acute findings. Reviewed, Interpreted and Dictated by Katrin Rosario MD Transcribed by Laila Guzman Authenticated and [facility]
[2024-04-10 09:00] VITALS: BP 137/62; PULSE 63; O2SAT 95
--- NOTE | 2024-04-10 09:05 | ED_ITS ---
Discharge Plan Disposition Patient Disposition: Home, Self-Care Prescriptions Prescriptions: No Action albuterol sulfate 2.5 mg /3 mL (0.083 %) solution for nebulization 2.5 mg IH Q6HP PRN (Reason: Shortness Of Breath) levocetirizine [Xyzal] 5 mg tablet 5 mg PO DAILY hydrochlorothiazide 25 mg tablet 25 mg PO DAILY Qty: 90 2RF losartan 100 mg tablet 100 mg PO DAILY Qty: 90 2RF atorvastatin 40 mg tablet 40 mg PO DAILY Qty: 90 3RF dicyclomine 20 mg tablet 20 mg PO QID PRN (Reason: abdominal pain) nystatin 100,000 unit/gram cream 1 applic topical BID Qty: 30 0RF montelukast 10 mg tablet 10 mg PO DAILY omeprazole 40 mg capsule,delayed release(DR/EC) See Rx Instructions .ROUTE .COMPLEX Qty: 90 2RF Dose Instruction: Take 1 capsule by mouth once daily Rx Instructions: Take 1 capsule by mouth once daily Trelegy Ellipta 200-62.5-25 mcg blister with device See Rx Instructions .ROUTE .COMPLEX Qty: 60 3RF Dose Instruction: INHALE 1 PUFF ONCE DAILY Rx Instructions: INHALE 1 PUFF ONCE DAILY cholecalciferol (vitamin D3) 1,250 mcg (50,000 unit) capsule See Rx Instructions .ROUTE .COMPLEX Qty: 12 0RF Dose Instruction: Take 1 capsule by mouth once a week Rx Instructions: Take 1 capsule by mouth once a week sodium,potassium,mag sulfates [Suprep Bowel Prep Kit] 17.5-3.13-1.6 gram recon soln See Rx Instructions PO .COMPLEX Qty: 354 0RF Rx Instructions: DILUTE; drink full amount early evening before AND next morning at least 2 hr before procedure; follow w 960 mL water PO metoprolol succinate 100 mg tablet extended release 24 hr 100 mg PO DAILY Qty: 30 2RF escitalopram oxalate 10 mg tablet See Rx Instructions .ROUTE .COMPLEX Qty: 90 3RF Dose Instruction: Take 1 tablet by mouth once daily Rx Instructions: Take 1 tablet by mouth once daily nystatin 100,000 unit/gram powder 1 applic topical TID PRN (Reason: yeast) Qty: 60 0RF ondansetron 4 mg Tablet,Disintegrating 4 mg PO Q8H PRN (Reason: Nausea) Qty: 12 0RF Referrals Follow up/Referrals: Jluis Burrows APRN [Primary Care Provider] - See instructions Activity Restrictions/Add. Instructions Additional Instructions/Restrictions: Take Tylenol 1000 mg every 6 hours (4 times daily) and ibuprofen 400 mg every 6 hours (4 times daily) as needed with food and water to prevent GI upset and kidney damage. Call your family doctor to establish care for this visit to the emergency department and schedule follow-up within 48 hours to ensure improvement. If you have any worsening of your condition or any other concerning signs or symptoms, return to the emergency department or your primary care doctor for further evaluation. Clinical Impressions Clinical Impression: Hematoma of occipital region of scalp, Pain in right buttock Print Language Print Language: Luxembourgish Discharge ED Provider: Vaughn Carvalho General Adult HPI General Chief complaint: Fall Stated complaint: AO fall 04/10, hit head, h/a Time Seen by Provider: 04/10/24 08:57 Mode of Arrival: Ambulatory Source of Information: Patient Limitations: No Limitations Description of Symptoms (Recalled from ER Triage Doc. by RN): Patient reports slipping on ice and falling. Complaint of headache and right hip pain. Denies LOC. States she took tylenol prior to arrival. History of Present Illness HPI narrative: Please note that above description of symptoms, in this electronic medical record under categorization of recalled from ER triage doctor by RN are reflective of an initial nursing assessment, however, is not reflective of my full history and physical exam that was personally taken and clarified. Consequentially, this preceding description of symptoms, which may include the patient's categorized chief complaint in the EMR, do not reflect my personal clinical impression, and the ultimate description of history of present illness and patient stated complaints should be deferred to this section of the note. Unless stated otherwise or congruent with this section of the note, additional signs, symptoms, or incongruence should be interpreted as inaccurate with my clinical impression. Related Data Home Medications ?Medication ?Instructions ?Recorded ?Confirmed albuterol sulfate 2.5 mg/3 mL 2.5 mg inhalation Q6HP PRN 09/12/22 03/01/24 (0.083 %) solution for nebulization Shortness Of Breath levocetirizine 5 mg tablet (Xyzal) 5 mg PO DAILY 09/12/22 03/01/24 montelukast 10 mg tablet 10 mg PO DAILY 04/19/23 03/06/24 dicyclomine 20 mg tablet 20 mg PO QID PRN abdominal pain 01/02/24 03/01/24 Previous Rx's ?Medication ?Instructions ?Recorded nystatin 100,000 unit/gram topical 1 applic topical TID PRN yeast #60 12/19/22 powder grams ondansetron 4 mg disintegrating 4 mg PO Q8H PRN Nausea #12 tabs 05/07/23 tablet omeprazole 40 mg capsule,delayed See Rx Instructions .Route 08/21/23 release .COMPLEX #90 caps atorvastatin 40 mg tablet 40 mg PO DAILY #90 tabs 09/14/23 hydrochlorothiazide 25 mg tablet 25 mg PO DAILY #90 tabs 09/14/23 losartan 100 mg tablet 100 mg PO DAILY #90 tabs 09/14/23 fluticasone fur. 200 mcg-umeclid See Rx Instructions .Route 12/12/23 62.5 mcg-vilant 25 mcg .COMPLEX #60 ea inhalat.powder (Trelegy Ellipta) nystatin 100,000 unit/gram topical 1 applic topical BID #30 grams 01/02/24 cream cholecalciferol (vitamin D3) 1,250 See Rx Instructions .Route 02/13/24 mcg (50,000 unit) capsule .COMPLEX #12 caps sodium,potassium,mag sulfates 17.5 See Rx Instructions PO .COMPLEX 02/23/24 gram-3.13 gram-1.6 gram oral soln #354 mL (Suprep Bowel Prep Kit) metoprolol succinate 100 mg 100 mg PO DAILY #30 tabs 02/26/24 tablet,extended release 24 hr escitalopram oxalate 10 mg tablet See Rx Instructions .Route 03/27/24 .COMPLEX #90 tabs Allergies Allergy/AdvReac Type Severity Reaction Status Date / Time sulfamethoxazole (From Allergy Mild NAUSEATED Verified 03/06/24 06:47 Bactrim) trimethoprim (From Bactrim) Allergy Mild NAUSEATED Verified 03/06/24 06:47 adhesive Allergy Rash Verified 03/06/24 06:47 [facility] Disclaimer: The information contained in this section may have been updated after the patient was seen, as this information can be updated by other users. Medical History (Updated 04/10/24 @ 10:08 by Vaughn Carvalho MD) Colon cancer screening Lipoma of right upper extremity Murmur Asthma GERD (gastroesophageal reflux disease) Hypertension Refill clinic medication management patient Surgical History H/O repair of right rotator cuff History of tubal ligation Family History Other Family history of asthma Family history of diabetes mellitus Family history of heart disease Social History (Updated 03/06/24 @ 06:53 by Kristi Welch RN) Smoking Status: Never smoker alcohol intake: never substance use type: denies use current occupational status: employed Travel in the last 8 weeks: None household members: family housing: house caffeine: Yes Have you lived/traveled outside [place] in past 30 days?: No Contact w/someone who lives/traveled outside [place] past 30 days?: No Exposure to someone with infectious disease in past 14 days?: No Do you have a fever (greater than 100.4 F or 38 C)?: No Have you tested positive for COVID-19: No Exposed to someone with COVID-19 in past 14 days?: No Do you have a sore throat?: No Do you have a cough?: No Do you have any weakness?: No Do you have any diarrhea?: No Are you experiencing any unusual bleeding?: No Do you have any muscle aches/pain?: No Do you have any abdominal pain?: No Are you experiencing loss of taste or smell?: No Other Medical History Have you received the Flu Vaccine for this season: No Have you received the Pneumonia Vaccine: Yes ROS Obtained: Yes All systems reviewed & no additional complaints except as documented Physical Exam General General appearance: alert Head Head exam: atraumatic, normocephalic and other (No outward signs of trauma, but she does have tenderness posterior aspect of right scalp on occiput) Eye Eye exam: Present normal appearance, PERRL and EOMI Neck Neck exam: Present normal inspection, full ROM, trachea midline and tenderness (Paraspinal primarily on the left) Respiratory Respiratory exam: Present normal lung sounds bilaterally; Absent respiratory distress, wheezes, stridor, accessory muscle use or prolonged expiratory phase Cardiovascular Cardiovascular exam: Present regular rate, normal rhythm and other (Pulses equal symmetric in upper and lower extremities) Abdominal Exam Abdominal exam: Present soft; Absent distention, tenderness or pulsatile mass Extremities Exam Extremities exam: Present other (Tenderness with external rotation of right hip. No shortened. Patient ambulatory into the emergency department); Absent edema Neurological Exam Neurological exam: Present alert, oriented X3 and CN II-XII intact; Absent motor sensory deficit Skin Skin exam: Present warm and dry; Absent diaphoresis or erythema Medical Decision Making Medical Records Medical records reviewed: Yes I reviewed the patient's medical records. Screening: Per USPSTF and CDC recommendations, given the prevalence of disease in our region, it is our hospital?s policy to screen for HIV and viral Hepatitis for all patients aged 18 and over and those with ongoing risk factors. Antoni Inquiry Pt receiving controlled substance: No Antoni was queried for this patient: No Vital Signs: 04/10/24 08:43 04/10/24 08:47 04/10/24 09:00 Temperature 97.7 F Temperature Source Oral Pulse Rate 61 63 Pulse Rate [Radial] 64 Respiratory Rate 16 Blood Pressure 186/85 H 137/62 Blood Pressure [Left Arm] 186/85 H Blood Pressure Mean 110 Blood Pressure Mean [Left Arm] 118 Blood Pressure Source [Left Arm] Automatic Cuff Blood Pressure Position [Left Arm] Sitting 02 Sat by Pulse Oximetry 97 96 95 Oxygen Delivery Method Room Air Room Air Room Air 04/10/24 09:30 04/10/24 10:01 04/10/24 10:16 Temperature 98 F Temperature Source Pulse Rate 60 52 L 53 L Pulse Rate [Radial] Respiratory Rate 16 Blood Pressure 143/66 H 149/68 H 149/68 H Blood Pressure [Left Arm] Blood Pressure Mean Blood Pressure Mean [Left Arm] Blood Pressure Source [Left Arm] Blood Pressure Position [Left Arm] 02 Sat by Pulse Oximetry 95 98 Oxygen Delivery Method Room Air Room Air Orders (Tests/Meds): ED MEDICATIONS Discontinued Medications Generic Name Dose Route Start Last Admin Trade Name Freq PRN Reason Stop Dose Admin Dexamethasone 10 mg 04/10/24 08:57 04/10/24 09:23 Dexamethasone 4mg Tablet PO 04/10/24 08:58 10 mg ONCE ONE Administration Ibuprofen 600 mg 04/10/24 08:57 04/10/24 09:23 Ibuprofen 600 Mg Tablet PO 04/10/24 08:58 600 mg ONCE ONE Administration ORDERS Category Date Time Status CT bony pelvis Stat Cat Scan 04/10/24 08:[address] cervical spine wo con Stat Cat Scan 04/10/24 08:[address] head/brain wo con Stat Cat Scan 04/10/24 08:57 Completed HIV Combo Stat Lab 04/10/24 08:51 Ordered Hepatitis C Ab Qual. W/ RFX Stat Lab 04/10/24 08:51 Ordered Medical Decision Narrative: This is a 58-year-old female with no relevant with fall patient is she was walking side, slipped on the ice, fell backward and hit her head. Did not lose consciousness. Is hurting in the posterior aspect of her head and her right hip/buttock. States that she did this about 2 hours prior to arrival. Went to work and was trying to function at work, but had significant pain in the hip, so came for further evaluation to make sure she had not broken anything. Pain is currently moderate in intensity, does not radiate, made worse with motion, but tolerable. No other trauma sustained. History obtained with patient. On arrival, she is very well-appearing with no clinical distress. She does have tenderness on the right side of her occiput, no outward signs of injury or deformity. Nexus C-spine negative. Patient does have tenderness with external rotation of her right lower extremity, but is neurologically intact and she ambulated in here able to flex and extend at the hip. No lower back tenderness or any other trauma or complaints. Differential includes intracranial hemorrhage, skull fracture, critical cervical spine injury, hip fracture, benign MSK injury, closed head injury, concussion, among others. Patient given ibuprofen and Decadron, she took Tylenol just for arrival. Hematologic workup was considered, but not deemed necessary. This acute minor trauma fall from standing not on anticoagulation and hemodynamically stable patient with MSK complaints that can be ruled out with noncontrasted CT scans. CT scans were ordered head, C-spine, pelvis. On independent interpretation, no acute intracranial hemorrhage. No cervical spine injury or pelvic/hip injury. Because patient at baseline without signs or symptoms of clinical decompensation, deemed appropriate for discharge. Results were relayed to patient who voiced understanding and were agreeable to outpatient management and follow up. I discussed my clinical impression with patient and answered all questions. At this time, the evidence for any other entities in the differential is insufficient to warrant any further testing or ED observation. This was explained as well. Advisory was given that persistent or worsening symptoms require further evaluation. I confirmed the understanding of this discussion. Inspector Cold Working disclaimer Much of this encounter note is an electronic pump house technician spoken language to printed text. Electronic pump house technician of the spoken language may permit errors. Although I have reviewed the note, some errors may still exist. Critical Care Critical Care Time Critical Care Time: No
[2024-04-10] MEDS: DEXAMETHASONE 4MG TABLET 10 MG PO (09:23)
[2024-04-10] MEDS: IBUPROFEN 600 MG TABLET PO (09:23)
[2024-04-10 09:30] VITALS: BP 143/66; PULSE 60; O2SAT 95
[2024-04-10 10:01] VITALS: BP 149/68; PULSE 52; O2SAT 98
[2024-04-10 10:16] VITALS: BP 149/68; PULSE 53; RESP 16; TEMP 36.6; O2SAT 96
== END 2024-04-10 10:18 | disposition home or self-care (01) ==
PROVIDERS: Emergency Provider Emergency Medicine; PCP Nurse Practitioner Family
DX: S00.03XA Contusion of scalp, initial encounter (principal); M79.18 Myalgia, other site; R51.9 Headache, unspecified; M25.551 Pain in right hip; W00.0XXA Fall on same level due to ice and snow, initial encounter; Y93.89 Activity, other specified; Y92.9 Unspecified place or not applicable
CPT/HCPCS: 70450; 72125; 72192; 99284; J8540

== ENCOUNTER 2024-04-18 09:12 | Outpatient (CLI) | payer MEDICAID, SELFPAY ==
[2024-04-18 09:34] LABS: Basophils # 0.1 K/mm3 (0-0.2); Basophils % 0.9 % (0.1-2.0); Eosinophils # 0.3 K/mm3 (0.0-0.4); Eosinophils % 4.3 % (0.1-12.0); Hematocrit 40.3 % (37.0-47.0); Hemoglobin 13.2 g/dL (12.2-16.2); Lymphocytes # 1.8 K/mm3 (0.7-4.5); Lymphocytes % 24.1 % (10-50); Mean Corpuscular HGB Conc 32.8 g/dL (31.8-35.4); Mean Corpuscular Hemoglobin 29.3 pg (27.0-31.2); Mean Corpuscular Volume 89.4 fl (81-99); Monocytes # 0.7 K/mm3 (0.1-1.0); Monocytes % 9.5 % (1.7-9.3); Neutrophils # 4.5 K/mm3 (1.8-7.8); Neutrophils % 60.3 % (37.0-80.0); Platelet Count 294 K/mm3 (142-424); Red Blood Count 4.51 M/mm3 (4.20-5.40); White Blood Count 7.4 K/mm3 (4.8-10.8)
[2024-04-18 10:03] LABS: Alanine Aminotransferase 25 U/L (12-78); Albumin Level 3.6 g/dl (3.5-5.0); Alkaline Phosphatase 111 U/L (38-126); Anion Gap 9.8 mEq/L (5-15); Aspartate Amino Transferase 27 U/L (14-36); Bilirubin,Direct 0.2 mg/dl (0.0-0.4); Bilirubin,Indirect 0.2 mg/dL (0.0-0.9); Bilirubin,Total 0.4 mg/dl (0.2-1.3); Bilirubin,Unconjugated 0.2 mg/dL (0.0-1.1); Blood Urea Nitrogen 12 mg/dl (7-17); Calcium 8.9 mg/dl (8.4-10.2); Carbon Dioxide 26 mmol/L (22.0-30.0); Chloride 107 mmol/L (98-107); Chol/HDL Ratio 4.3 (1-3.5); Cholesterol 186 mg/dl (140-200); Estimated Glomerular Filt Rate 126 ml/min (>60); GFR (African American) 152 ML/MIN (>60); Glucose 127 mg/dl (74-100); HDL Cholesterol 43 mg/dl (40-60); Magnesium 1.7 mg/dl (1.6-2.3); Potassium 3.8 mmoL/L (3.5-5.1); Sodium 139 mmol/L (136-145); Total Protein,Serum 5.7 g/dl (6.3-8.2); Triglycerides 322 mg/dl (30-150); VLDL Cholesterol 64 mg/dL (0-40)
[2024-04-18 10:15] LABS: Direct LDL Cholesterol 107.88 mg/dL (100-129)
[2024-04-18 10:18] LABS: Free T4 (Free Thyroxine) 1.35 ng/dl (0.78-2.19)
[2024-04-18 10:34] LABS: Thyroid Stimulating Hormone 1.12 uIU/mL (0.465-4.68)
== END 2024-04-18 23:59 | disposition home or self-care (01) ==
LOC: LAB 09:13
PROVIDERS: PCP Nurse Practitioner Family; Visit Provider Nurse Practitioner
DX: I51.89 Other ill-defined heart diseases (principal); I35.0 Nonrheumatic aortic (valve) stenosis; E78.2 Mixed hyperlipidemia; I10 Essential (primary) hypertension; K21.9 Gastro-esophageal reflux disease without esophagitis
CPT/HCPCS: 36415; 80048; 80061; 80076; 83735; 84439; 84443; 85025

== ENCOUNTER 2024-04-22 14:16 | Outpatient (CLI) | payer MEDICAID, SELFPAY ==
--- NOTE | 2024-04-22 14:19 | CA_ITS ---
APPROVED REPORT EXAM: Comprehensive 2D, Doppler, and color-flow Echocardiogram [facility] Assistant: Nirmala Barnett RDCS Ht: 5 ft 2 in Wt: 229lbs BSA: 2.03 BP: 140/90 mmHg Indications: MURMMUR,,DD,HTN,HLP, TDS SECONDARY M-Mode Dimensions RVDd 1.66 cm (0.9-2.6) LA Diam 4.53 cm (1.9-4.0) LVDd 5.56 cm (3.5-5.7) LVDs 3.45 cm (3.5-5.7) IVSd 0.90 cm (0.6-1.1) PWd 0.94 cm (0.6-1.1) EF (Teich) 67.50% FS 37.90% EDV (Teich) 151.20 mL ESV (Teich) 49.10 mL LV Diastology E Decel Time 233 (160-240 msec) E/A Ratio 1.0 Aortic Valve MNOICO Index 0.62 cm2/m2 AoV Peak Smith. 279.0 (50-130 cm/s) AO Peak GR. 31.10 mmHg AO Mean GR. 15.20 (<5 mmHg) AO VTI 57.9 (18-25 cm) MONICO (VTI) 1.28 (2.5-4.5 cm2) Mitral Valve MV E Max Smith. 102.0 (40-130 cm/s) MV A Velocity 107.0 (40-130 cm/s) E/A Ratio 0.95 MV PHT 68.0 ms Left Ventricle The left ventricle is normal size. The left ventricular systolic function is normal. The left ventricular ejection fraction is within the normal range. There is increased LV wall thickness. There is normal LV segmental wall motion. Transmitral Doppler flow pattern suggests impaired LV relaxation. LVEF is 55%. Right Ventricle The right ventricle is normal size. The right ventricular systolic function is normal. Atria The left atrium is mildly dilated. The right atrium size is normal. There is no Doppler evidence of interatrial shunt. Aortic Valve The aortic valve leaflets are mildly thickened. Mild aortic stenosis is present. MONICO by continuity equation is 1.5 cm2. Peak velocity 2.8 m/s. Mean AV gradient 15 mmHg. Max AV gradient 30 mmHg. Trace aortic regurgitation. Mitral Valve Mild mitral annular calcification is present. The mitral valve leaflets are mildly thickened. No evidence of mitral valve stenosis. Mean MV gradient 3 mmHg (HR 65 bpm). Trace mitral regurgitation. Tricuspid Valve The tricuspid valve leaflets are thin and pliable. Trace tricuspid regurgitation. There is insufficient TR jet to estimate RVSP. Pulmonic Valve The pulmonary valve is normal in structure. Trace pulmonic regurgitation. Great Vessels The aortic root is normal in size. The ascending aorta is not well-visualized. IVC is normal in size and collapses >50% with inspiration. Pericardium There is no pericardial effusion. Other Information Study Quality: Technically Difficult Conclusion Technically difficult study due to poor acoustic windows. Normal biventricular systolic function. Mild (MONICO by continuity equation is 1.5 cm2. Peak velocity 2.8 m/s. Mean AV gradient 15 mmHg. Max AV gradient 30 mmHg). Compared to prior study from 11/01/2022, the severity of is overall unchanged. Serial TTE's are recommended. Electronically signed by : Serena Carlos MD 04/28/2024 03:02:33
== END 2024-04-22 23:59 | disposition home or self-care (01) ==
LOC: RT 14:17
PROVIDERS: PCP Nurse Practitioner Family; Visit Provider Nurse Practitioner
DX: I51.89 Other ill-defined heart diseases (principal); I35.0 Nonrheumatic aortic (valve) stenosis
CPT/HCPCS: 93306

== ENCOUNTER 2024-05-29 11:51 | Outpatient (CLI) | payer MEDICAID, SELFPAY ==
--- NOTE | 2024-05-29 | CA_ITS ---
APPROVED REPORT Exam: Pharmacologic Technologist: Michelle Jacob Ht: 5 ft 2 in Wt: 226 lbs BSA: 2.01 m2 HR: 63 bpm BP: 158/64 mmHg Stress Test Details Test: Lexiscan HR Resting HR: 63 bpm Max Heart Rate (APMHR): [phone] bpm Max HR Achieved: 91 bpm Target HR (85% APMHR): 136.166799 bpm % of APMHR: 56.88 Recovery HR: 82 bpm BP Resting BP: 158.0/64.0 mmHg Max BP: 158.0/64.0 mmHg Recovery BP: 136.0/41.0 mmHg ECG Stress ECG Conclusion Symptoms: Shortness of air with Lexiscan. Chest pressure in recovery. Arrhythmias/Ectopy: PVCs noted. ST-T Changes: Unremarkable due to Lexiscan. Electronically signed by : Serena Carlos MD 05/30/2024 14:12:25
--- NOTE | 2024-05-29 11:52 | NM_ITS ---
APPROVED REPORT Exam: Nuclear Stress Test Indication: chest pain Patient Location: Outpatient Stress Tech: Michelle Jacob [place] Tech:Ashley Salazar SANALisa RT (R)(N)(M) Ht: 5 ft 2 in Wt: 229 lbs Bra Size: d HR: 63 bpm BP: 458/64 mmHg BSA: 2.03 m2 TID: 1.30 BMI: 41.8 History: chest pain Procedure: Patient received 0.4 mg of intravenous Lexiscan, resting heart rate 63 bpm, resting blood pressure 158/64 mmHg, with Lexiscan maximum heart rate achieved was 91 bpm which is 85 % of the maximum predicted heart rate and blood pressure was 124/45 mmHg. With Lexiscan, patient denied any complaint of chest pain. Cardiac Stress and Resting SPECT Images: Cardiac Stress and Resting SPECT images were obtained using technetium 99m Myoview 32.1 mCi stress and 10.25 mCi at rest. Resting and stress imaging in supine and prone positions demonstrate no evidence of fixed or reversible perfusion defects. There is increase in transient ischemic dilatation ratio (TID 1.30), suggestive of possible multivessel disease or balanced ischemia. Gated imaging demonstrates normal global and regional LV systolic function. LVEF is calculated at 71%. Conclusion: No evidence of fixed or reversible perfusion defects. There is increase in transient ischemic dilatation ratio (TID 1.30), suggestive of possible multivessel disease or balanced ischemia. Gated imaging demonstrates normal global and regional LV systolic function. LVEF is calculated at 71%. Electronically signed by : Serena Carlos MD 05/30/2024 14:05:18
[2024-05-29] MEDS: SODIUM CHLORIDE 0.9% 10ML SYR (RAD ONLY) 10 ML IV ×2 (14:15→14:29)
[2024-05-29] MEDS: REGADENOSON 0.4MG/5ML SYRINGE 0.4 MG IV (14:15)
[2024-05-29] MEDS: ISOTOPE MYOVIEW (PER STUDY) 1 DOSE IV (14:29)
== END 2024-05-29 23:59 | disposition home or self-care (01) ==
LOC: RAD 11:52
PROVIDERS: PCP Nurse Practitioner Family; Visit Provider Nurse Practitioner
DX: R07.89 Other chest pain (principal)
CPT/HCPCS: 78452; 93017; 93018; A9502; J2785

== ENCOUNTER 2024-06-19 10:48 | Day surgery (SDC) | payer MEDICAID, SELFPAY ==
[2024-06-19] VITALS (11 sets, daily range): BP systolic 129–190; BP diastolic 74–97; PULSE 70–102; RESP 16–20; O2SAT 92–99; BMI 41.9
--- NOTE | 2024-06-19 07:17 | IR_ITS ---
APPROVED REPORT Patient Location: Outpatient PROCEDURES Left heart catheterization Left ventriculogram Selective coronary angiogram INDICATION Abnormal Myoview Informed consent was obtained prior to the procedure. COMPLICATIONS NONE Estimated Blood Loss: LESS THAN 10 ML TECHNIQUE One percent lidocaine used to anesthetize the right anterior aspect of the wrist. The right radial artery was accessed via the Seldinger technique. A 6 Luxembourgish sheath was placed in the right radial artery. 2.5 mg of Verapamil, 800 mcg of nitroglycerin, 1mg Lidocaine and 5000 U Heparin were given through the arterial sheath. The papa catheter was also used to perform selective coronary angiogram. At the end of the procedure the sheath was removed good hemostasis was achieved using Traclet band, patient was transferred to the postop holding area in stable condition. ANGIOGRAPHIC RESULTS The left main artery Normal The left anterior descending artery Large with proximal 20 to 30% smooth stenosis The circumflex artery Large dominant normal The right coronary artery Nondominant normal The CHENG ventriculogram reveals Not performed The left ventricular end-diastolic pressure Not measured IMPRESSION Mild nonflow limiting coronary artery disease PLAN 1. Medical management for presumed HFpEF 2. Risk factor modification for coronary artery disease Electronically signed by : Jesus Ramos MD 06/19/2024 15:19:50
[2024-06-19 11:09] LABS: Basophils # 0.1 K/mm3 (0-0.2); Basophils % 0.8 % (0.1-2.0); Eosinophils # 0.2 K/mm3 (0.0-0.4); Eosinophils % 2.9 % (0.1-12.0); Hematocrit 41.3 % (37.0-47.0); Hemoglobin 13.8 g/dL (12.2-16.2); Lymphocytes # 1.8 K/mm3 (0.7-4.5); Lymphocytes % 27.7 % (10-50); Mean Corpuscular HGB Conc 33.4 g/dL (31.8-35.4); Mean Corpuscular Hemoglobin 30.3 pg (27.0-31.2); Mean Corpuscular Volume 90.6 fl (81-99); Mean Platelet Volume 9.9 fl (7.4-10.4); Monocytes # 0.5 K/mm3 (0.1-1.0); Monocytes % 7.4 % (1.7-9.3); Neutrophils % 60.4 % (37.0-80.0); Platelet Count 245 K/mm3 (142-424); Red Blood Count 4.56 M/mm3 (4.20-5.40); Red Cell Distribution Width 13.5 % (11.5-17.5); White Blood Count 6.6 K/mm3 (4.8-10.8)
[2024-06-19 11:20] LABS: Chloride 106 mmol/L (98-107); Potassium 3.9 mmoL/L (3.5-5.1); Sodium 140 mmol/L (136-145)
[2024-06-19 11:23] LABS: Blood Urea Nitrogen 15 mg/dl (7-17); Creatinine Clearance Estimated 118 mL/min (50-200); Estimated Glomerular Filt Rate 163 ml/min (>60); GFR (African American) 197 ML/MIN (>60)
[2024-06-19 11:24] LABS: Anion Gap 9.9 mEq/L (5-15); Calcium 8.8 mg/dl (8.4-10.2); Carbon Dioxide 28 mmol/L (22.0-30.0); Glucose 93 mg/dl (74-100)
[2024-06-19] MEDS: diphenhydrAMINE 50MG/ML VIAL 50 MG IV (13:12)
[2024-06-19] MEDS: HEPARIN 1,000 UNITS/500ML NS (CATH LAB) 3000 UNIT IV (13:13)
[2024-06-19] MEDS: LIDOCAINE 1% 10ML MDV 20 ML IJ (13:14)
[2024-06-19] MEDS: 0.9 % SODIUM CHLORIDE 500 ML 25 ML IV (13:14)
[2024-06-19] MEDS: NITROGLYCERIN 800MCG/8ML SYR (CATH LAB) 800 MCG IA (13:15)
[2024-06-19] MEDS: FENTANYL 100MCG/2ML VIAL 50 MCG IV (13:32)
[2024-06-19] MEDS: MIDAZOLAM HCL 1MG/ML 5ML VIAL 1 MG IV (13:32)
[2024-06-19] MEDS: IOPAMIDOL-370 (76%);100ML BOTTLE 50 ML IV (15:09)
== END 2024-06-19 15:48 | disposition home or self-care (01) ==
PROVIDERS: PCP Nurse Practitioner Family; Visit Provider Internal Medicine
DX: I25.118 Atherosclerotic heart disease of native coronary artery with other forms of angina pectoris (principal); R94.39 Abnormal result of other cardiovascular function study; I10 Essential (primary) hypertension; E78.5 Hyperlipidemia, unspecified; I35.0 Nonrheumatic aortic (valve) stenosis; K21.9 Gastro-esophageal reflux disease without esophagitis; Z82.49 Family history of ischemic heart disease and other diseases of the circulatory system; Z82.5 Family history of asthma and other chronic lower respiratory diseases; Z79.82 Long term (current) use of aspirin; Z79.899 Other long term (current) drug therapy; Z79.51 Long term (current) use of inhaled steroids
CPT/HCPCS: 36415; 80048; 85025; 93458; 99152; C1725; C1769; J1200; J1644; J3010; Q9967

== ENCOUNTER 2024-07-29 09:52 | Emergency (ER) | payer MEDICAID, SELFPAY ==
[2024-07-29] VITALS (7 sets, daily range): BP systolic 158–189; BP diastolic 73–91; PULSE 63–83; RESP 13–18; TEMP 36.6; O2SAT 94–98; BMI 40.2
--- NOTE | 2024-07-29 09:58 | ED_ITS ---
<Statement entered by Baylee Mcdonald MD - 07/29/24 13:44> I was consulted by the BRIGHT, and we discussed the complexity of problems being addressed. I approved the treatment and management plan for this patient's care in the emergency department, thus performing a substantive portion of the medical decision making. Baylee Mcdonald MD Discharge Plan Disposition Patient Disposition: Home, Self-Care Prescriptions Prescriptions: No Action hydrochlorothiazide 25 mg tablet 25 mg PO DAILY Qty: 90 2RF losartan 100 mg tablet 100 mg PO DAILY Qty: 90 2RF amlodipine 5 mg tablet 5 mg PO DAILY Qty: 30 2RF omeprazole 40 mg capsule,delayed release(DR/EC) 40 mg PO DAILY montelukast 10 mg tablet 10 mg PO DAILY nystatin 100,000 unit/gram cream 1 applic topical BID PRN (Reason: Rash) albuterol sulfate [Ventolin HFA] 90 mcg/actuation HFA aerosol inhaler 2 puff inhalation Q4-6H PRN (Reason: sob) Patient Comments: INHALE 2 PUFFS BY MOUTH EVERY 4 TO 6 HOURS NEEDED FOR SHORTNESS OF BREATH FOR WHEEZING levocetirizine [Xyzal] 5 mg tablet 5 mg PO HS PRN (Reason: allergies) cholecalciferol (vitamin D3) [Vitamin D3] 25 mcg (1,000 unit) capsule 25 mcg PO DAILY buspirone 10 mg tablet 10 mg PO BID Qty: 180 3RF Rx Instructions: Take 1 tab p.o. nightly x 14 days, then increase to 1 tab p.o. twice daily thereafter atorvastatin 40 mg tablet 40 mg PO DAILY Qty: 90 3RF aspirin [Adult Aspirin Regimen] 81 mg tablet,delayed release (DR/EC) 81 mg PO DAILY Qty: 90 3RF escitalopram oxalate 10 mg tablet See Rx Instructions .ROUTE .COMPLEX Qty: 90 3RF Dose Instruction: Take 1 tablet by mouth once daily Rx Instructions: Take 1 tablet by mouth once daily cholecalciferol (vitamin D3) 1,250 mcg (50,000 unit) capsule See Rx Instructions .ROUTE .COMPLEX Qty: 12 0RF Dose Instruction: Take 1 capsule by mouth once a week Rx Instructions: Take 1 capsule by mouth once a week Trelegy Ellipta 200-62.5-25 mcg blister with device See Rx Instructions .ROUTE .COMPLEX Qty: 180 0RF Dose Instruction: INHALE 1 PUFF ONCE DAILY Rx Instructions: INHALE 1 PUFF ONCE DAILY metoprolol succinate 100 mg tablet extended release 24 hr See Rx Instructions .ROUTE .COMPLEX Qty: 90 0RF Dose Instruction: Take 1 tablet by mouth once daily Rx Instructions: Take 1 tablet by mouth once daily nystatin 100,000 unit/gram powder 1 applic topical TID PRN (Reason: yeast) Qty: 60 0RF ondansetron 4 mg Tablet,Disintegrating 4 mg PO Q8H PRN (Reason: Nausea) Qty: 12 0RF Referrals Follow up/Referrals: Jluis Burrows APRN [Primary Care Provider] - See instructions Activity Restrictions/Add. Instructions Additional Instructions/Restrictions: Today you were evaluated in the emergency department. Your urine was unremarkable, the CT scan of your abdomen pelvis did not show anything acute however as we discussed show diverticulosis and the adrenal nodule. Please follow-up with your PCP tomorrow. Please increase your fluid intake, you may take Azo tablets for symptomatic relief x 2 days, but please return to the emergency department if you have any worsening of your condition. We have sent off for urine culture someone should call you if this is abnormal. Clinical Impressions Clinical Impression: Dysuria Instructions Patient Instructions: DI for Urinary Tract Infection (UTI) Print Language Print Language: Niuean Discharge ED Provider: Baylee Mcdonald General Adult HPI General Chief complaint: Urogenital-Female Stated complaint: Addison when urinating, Lower abd. pain Time Seen by Provider: 07/29/24 09:57 History of Present Illness HPI narrative: Patient is a pleasant 58-year-old female PMHx HTN, HLD, COPD, GERD, anxiety, depression, obesity, history of hematuria, history of hypertensive urgency who presents to the ED with complaints of dysuria, suprapubic pain, left-sided flank pain for 3 days. Related Data Home Medications ?Medication ?Instructions ?Recorded ?Confirmed montelukast 10 mg tablet 10 mg PO DAILY 04/19/23 06/26/24 albuterol sulfate 90 mcg/actuation 2 puff inhalation Q4-6H PRN sob 04/18/24 06/26/24 aerosol inhaler (Ventolin HFA) nystatin 100,000 unit/gram topical 1 applic topical BID PRN Rash 04/18/24 06/26/24 cream cholecalciferol (vitamin D3) 25 25 mcg PO DAILY 06/05/24 06/26/24 mcg (1,000 unit) capsule (Vitamin D3) levocetirizine 5 mg tablet (Xyzal) 5 mg PO HS PRN allergies 06/05/24 06/26/24 omeprazole 40 mg capsule,delayed 40 mg PO DAILY 06/13/24 06/26/24 release Previous Rx's ?Medication ?Instructions ?Recorded nystatin 100,000 unit/gram topical 1 applic topical TID PRN yeast #60 12/19/22 powder grams ondansetron 4 mg disintegrating 4 mg PO Q8H PRN Nausea #12 tabs 05/07/23 tablet hydrochlorothiazide 25 mg tablet 25 mg PO DAILY #90 tabs 09/14/23 losartan 100 mg tablet 100 mg PO DAILY #90 tabs 09/14/23 escitalopram oxalate 10 mg tablet See Rx Instructions .Route 03/27/24 .COMPLEX #90 tabs amlodipine 5 mg tablet 5 mg PO DAILY #30 tabs 04/23/24 cholecalciferol (vitamin D3) 1,250 See Rx Instructions .Route 05/03/24 mcg (50,000 unit) capsule .COMPLEX #12 caps fluticasone fur. 200 mcg-umeclid See Rx Instructions .Route 05/08/24 62.5 mcg-vilant 25 mcg .COMPLEX #180 ea inhalat.powder (Trelegy Ellipta) metoprolol succinate 100 mg See Rx Instructions .Route 05/17/24 tablet,extended release 24 hr .COMPLEX #90 tabs buspirone 10 mg tablet 10 mg PO BID #180 tabs 06/05/24 aspirin 81 mg tablet,delayed 81 mg PO DAILY #90 tabs 06/26/24 release (Adult Aspirin Regimen) atorvastatin 40 mg tablet 40 mg PO DAILY #90 tabs 06/26/24 Allergies Allergy/AdvReac Type Severity Reaction Status Date / Time sulfamethoxazole (From Allergy Mild NAUSEATED Verified 06/26/24 10:49 Bactrim) trimethoprim (From Bactrim) Allergy Mild NAUSEATED Verified 06/26/24 10:49 adhesive Allergy Rash Verified 06/26/24 10:49 [facility] Disclaimer: The information contained in this section may have been updated after the patient was seen, as this information can be updated by other users. Medical History (Updated 07/29/24 @ 12:40 by Tigist Ellis APRN) Breast cancer screening CAD (coronary artery disease) Colon cancer screening Lipoma of right upper extremity Murmur Asthma GERD (gastroesophageal reflux disease) Hypertension Refill clinic medication management patient Surgical History H/O colonoscopy History of esophagogastroduodenoscopy (EGD) H/O repair of right rotator cuff History of tubal ligation Family History Other Family history of asthma Family history of diabetes mellitus Family history of heart disease Social History Smoking Status: Current every day smoker alcohol intake: never substance use type: denies use current occupational status: employed Travel in the last 8 weeks?: Inside the [place] household members: family housing: house caffeine: Yes Have you lived/traveled outside [place] in past 30 days?: No Contact w/someone who lives/traveled outside US past 30 days?: No Exposure to someone with infectious disease in past 14 days?: No Do you have a fever (greater than 100.4 F or 38 C)?: No Have you tested positive for COVID-19?: No Exposed to someone with COVID-19 in past 14 days?: No Do you have a sore throat?: No Do you have a cough?: No Do you have any weakness?: No Do you have any diarrhea?: No Are you experiencing any unusual bleeding?: No Do you have any muscle aches/pain?: No Do you have any abdominal pain?: Yes Are you experiencing loss of taste or smell?: No Other Medical History Have you received the Flu Vaccine for this season: No Have you received the Pneumonia Vaccine: Yes ROS Obtained: Yes Systems reviewed as appropriate & no additional complaints except as documented Physical Exam General General appearance: alert and in no apparent distress Head Head exam: atraumatic and normocephalic Eye Eye exam: Present normal appearance and PERRL ENT ENT exam: Present normal exam Neck Neck exam: Present normal inspection Chest Chest inspection: Present normal inspection and symmetric chest wall rise; Absent tenderness Respiratory Respiratory exam: Present normal lung sounds bilaterally Cardiovascular Cardiovascular exam: Present regular rate Abdominal Exam Abdominal exam: Present soft, tenderness (Suprapubic) and normal bowel sounds Extremities Exam Extremities exam: Present normal inspection and full ROM Back Exam Back exam: Present normal inspection, full ROM and CVA tenderness (L) Neurological Exam Neurological exam: Present alert and oriented X3 Psychiatric Psychiatric exam: Present normal affect and normal mood Skin Skin exam: Present warm and dry Medical Decision Making Medical Records Screening: Per USPSTF and CDC recommendations, given the prevalence of disease in our region, it is our hospital?s policy to screen for HIV and viral Hepatitis for all patients aged 18 and over and those with ongoing risk factors. Antoni Inquiry Pt receiving controlled substance: No Antoni was queried for this patient: No Vital Signs: 07/29/24 10:05 07/29/24 10:10 07/29/24 10:20 Temperature 97.9 F Temperature Source Oral Pulse Rate 63 76 Pulse Rate [Left Radial] 83 Respiratory Rate 13 Blood Pressure 158/73 H 170/79 H Blood Pressure [Right Arm] 189/89 H Blood Pressure Mean [Right Arm] 122 Blood Pressure Source [Right Arm] Automatic Cuff Blood Pressure Position [Right Arm] Supine 02 Sat by Pulse Oximetry 96 94 L 96 Oxygen Delivery Method Room Air 07/29/24 10:30 07/29/24 10:40 Temperature Temperature Source Pulse Rate 83 79 Pulse Rate [Left Radial] Respiratory Rate Blood Pressure 161/87 H 176/86 H Blood Pressure [Right Arm] Blood Pressure Mean [Right Arm] Blood Pressure Source [Right Arm] Blood Pressure Position [Right Arm] 02 Sat by Pulse Oximetry 95 96 Oxygen Delivery Method Lab Data Lab Results 07/29/24 09:56: Urine Color Yellow, Urine Appearance Clear, Urine pH 6.0, Ur Specific [place] <= 1.005, Urine Protein Negative, Urine Glucose (UA) Negative, Urine Ketones Negative, Urine Blood Negative, Urine Nitrate Negative, Urine Bilirubin Negative, Urine Urobilinogen 0.2, Ur Leukocyte Esterase Negative, Urine RBC None, Urine WBC None, Ur Squamous Epith Cells Occasional, Urine Bacteria None 07/29/24 10:18: WBC 6.2, RBC 4.49, Hgb 13.5, Hct 40.4, MCV 90.0, MCH 30.1, MCHC 33.4, RDW 13.4, Plt Count 288, MPV 10.1, Neut % (Auto) 64.1, Lymph % (Auto) 23.2, [place] % (Auto) 8.9, Eos % (Auto) 1.8, Baso % (Auto) 1.0, Neut # (Auto) 4.0, Lymph # (Auto) 1.4, [place] # (Auto) 0.6, Eos # (Auto) 0.1, Baso # (Auto) 0.1, Sodium 139, Potassium 4.0, Chloride 111 H, Carbon Dioxide 24, Anion Gap 8.0, BUN 14, Creatinine 0.50 L, Estimated Creat Clear 188, Estimated GFR 126, Est GFR ( Amer) 152, Glucose 97, Calcium 8.8, Total Bilirubin 0.5, AST 29, ALT 19, Alkaline Phosphatase 88, Total Protein 6.7, Albumin 4.0, Globulin 2.7, Albumin/Globulin Ratio 1.5, Lipase 72 07/29/24 11:06: Lactate 1.4 07/29/24 10:18 07/29/24 10:18 Orders (Tests/Meds): ED MEDICATIONS Generic Name Dose Route Start Last Admin Trade Name Freq PRN Reason Stop Dose Admin Sodium Chloride 10 ml 07/29/24 10:06 07/29/24 11:10 Sodium Chloride 0.9% 10ml Flush Syringe IV 08/28/24 10:05 10 ml NEEDED PRN Administration Maintain IV Site Sodium Chloride 10 ml 07/29/24 11:09 Sodium Chloride 0.9% 10ml Syr (Rad Only) IV 08/28/24 11:08 NEEDED PRN Maintain IV Site Discontinued Medications Generic Name Dose Route Start Last Admin Trade Name Freq PRN Reason Stop Dose Admin Acetaminophen 1,000 mg 07/29/24 10:34 07/29/24 10:40 Acetaminophen 500mg Tab PO 07/29/24 10:35 1,000 mg ONCE ONE Administration Amlodipine Besylate 5 mg 07/29/24 10:08 07/29/24 10:19 Amlodipine 5mg Tablet PO 07/29/24 10:09 5 mg ONCE ONE Administration Iopamidol 75 ml 07/29/24 11:09 07/29/24 11:10 Iopamidol-370 (76%);100ml Bottle IV 07/29/24 11:10 75 ml ONCE ONE Administration ORDERS Category Date Time Status CT abdomen pelvis w con Stat Cat Scan 07/29/24 10:51 Completed CBC w/Auto Diff [Complete Blood Count Auto Diff] Stat Lab 07/29/24 10:18 Completed CMP [Comprehensive Metabolic Panel] Stat Lab 07/29/24 10:18 Completed Lactic Acid Stat Lab 07/29/24 11:06 Completed Lipase Stat Lab 07/29/24 10:18 Completed Urinalysis and Microscopic Stat Lab 07/29/24 09:56 Completed Urine Culture Stat Micro 07/29/24 09:56 Received Medical Decision Narrative: In summary, patient is a pleasant 58-year-old female PMHx HTN, HLD, COPD, GERD, anxiety, depression, obesity, history of hematuria, history of hypertensive urgency who presents to the ED with complaints of dysuria, suprapubic pain, left-sided flank pain for 3 days. Patient states that she has not had fever, body aches or chills. She has not taken any medication prior to arrival. She denies any additional complaints at this time. Patient states she has not taken her morning medications including her blood pressure meds this morning. Upon arrival she is hypertensive, stable otherwise. Her physical exam is remarkable for suprapubic tenderness, left-sided flank tenderness. Denies headache, visual disturbances, posterior neck pain, chest pain, shortness of breath, nausea, vomiting, diarrhea. Denies trauma. Discussed with patient that we will proceed with labs & urinalysis. She is agreeable to this plan of care. Will symptomatically managed with acetaminophen. We will also administer her morning amlodipine dose to lower her blood pressure while in the ED. Hematologic labs reviewed, CBC unremarkable for any leukocytosis, stable H&H. CMP unremarkable for any actionable abnormalities. Urinalysis reviewed, negative for blood, negative for nitrites, negative for leuk esterase, no bacteria noted. Records reviewed, myocardial perfusion scan from 05/29/2024 concluded to have no evidence of fixed or reversible perfusion deficits. LVEF calculated at 71%. Discussed with patient that since labs are normal and urinalysis is unremarkable, with physical exam tenderness noted, we will proceed with CT scan of the abdomen and pelvis and add an additional lipase and lactic acid to the hematologic lab work. Patient is agreeable at this time. CT scan of the abdomen and pelvis unremarkable for any acute abnormality in the abdomen or pelvis. It is noted that patient has a stable left adrenal nodule. Diverticulosis noted. Upon reassessment, patient's condition has improved, she remained stable, given this I feel that patient is safe to be discharged at this time. Discussed with patient that her CT and labs are overall unremarkable. Advised her that it is noted she has a left adrenal nodule and diverticulosis, this will need follow-up with PCP. Patient verbalized understanding and states that she is already aware of these findings. She states that she has not been drinking fluids very well, advised her to increase her fluid intake, follow-up with PCP tomorrow and may take [id number] Azo tablets. I did discuss with her that we sent for urine culture which she will be contacted if the finding is abnormal. Patient was hemodynamically stable and ambulatory upon leaving the ED. Critical Care Critical Care Time Critical Care Time: No
[2024-07-29 10:09] LABS: Microscopic, Urine URINE MICROSCOPIC (MICROSCOPIC)
[2024-07-29 10:10] LABS: Appearance,Urine CLEAR (Clear); Bilirubin,Urine Negative (Negative); Blood, Urine Negative (Negative); Color,Urine YELLOW (Yellow); Glucose,Urine (UA) Negative (Negative); Ketones,Urine Negative (Negative); Leukocyte Esterase,Urine Negative (Negative); Nitrate,Urine Negative (Negative); Protein,Urine Negative (Negative); Specific Gravity, Urine <= 1.005 (1.005-1.030); Urobilinogen,Urine 0.2 EU/dl (0.2)
[2024-07-29 10:19] LABS: Squamous Epithelial Cell,Urine Occasional #/hpf (0-5)
[2024-07-29] MEDS: AMLODIPINE 5MG TABLET 5 MG PO (10:19)
[2024-07-29 10:23] LABS: Basophils # 0.1 K/mm3 (0-0.2); Eosinophils # 0.1 Kmm3 (0.0-0.4); Eosinophils % 1.8 % (0.1-12.0); Hematocrit 40.4 % (37.0-47.0); Hemoglobin 13.5 g/dL (12.2-16.2); Lymphocytes # 1.4 K/mm3 (0.7-4.5); Lymphocytes % 23.2 % (10-50); Mean Corpuscular HGB Conc 33.4 g/dL (31.8-35.4); Mean Corpuscular Hemoglobin 30.1 pg (27.0-31.2); Mean Platelet Volume 10.1 fl (7.4-10.4); Monocytes # 0.6 K/mm3 (0.1-1.0); Monocytes % 8.9 % (1.7-9.3); Neutrophils % 64.1 % (37.0-80.0); Nucleated Red Blood Cells # 0 10^3/uL; Nucleated Red Blood Cells % 0 %; Platelet Count 288 K/mm3 (142-424); Red Blood Count 4.49 M/mm3 (4.20-5.40); Red Cell Distribution Width 13.4 % (11.5-17.5); Red Cell Distribution Width-SD 44.3 fL; White Blood Count 6.2 K/mm3 (4.8-10.8)
[2024-07-29 10:33] LABS: Alanine Aminotransferase 19 U/L (12-78); Albumin/Globulin Ratio 1.5 (1.1-1.8); Alkaline Phosphatase 88 U/L (38-126); Aspartate Amino Transferase 29 U/L (14-36); Bilirubin,Total 0.5 mg/dl (0.2-1.3); Blood Urea Nitrogen 14 mg/dl (7-17); Calcium 8.8 mg/dl (8.4-10.2); Carbon Dioxide 24 mmol/L (22.0-30.0); Chloride 111 mmol/L (98-107); Creatinine Clearance Estimated 188 mL/min (50-200); Estimated Glomerular Filt Rate 126 ml/min (>60); GFR (African American) 152 ML/MIN (>60); Globulin 2.7 g/dL (1.3-3.2); Glucose 97 mg/dl (74-100); Sodium 139 mmol/L (136-145); Total Protein,Serum 6.7 g/dl (6.3-8.2)
[2024-07-29] MEDS: ACETAMINOPHEN 500MG TAB 1000 MG PO (10:40)
--- NOTE | 2024-07-29 10:51 | CT_ITS ---
FINAL REPORT TECHNIQUE: Thin section axial images are obtained through the abdomen and pelvis after intravenous contrast. Reconstruction images were obtained from the axial data. Exam was performed using dose reduction techniques. CLINICAL HISTORY: suprapubic abd pain / L flank COMPARISON: CT pelvis 04/10/[address] abdomen and pelvis 05/27/2023 FINDINGS: LUNG BASES: Lung bases are clear. Heart size is normal. LIVER: Homogeneous. No focal lesion. GALLBLADDER/BILIARY SYSTEM: Gallbladder is present. No gallstones. No biliary dilatation. SPLEEN: Borderline splenomegaly again noted. PANCREAS: Unremarkable. ADRENALS: Stable left adrenal nodule. Right adrenal gland normal. KIDNEYS/URETERS/BLADDER: No hydronephrosis, renal mass, or renal stone. Unremarkable urinary bladder. GI TRACT: No small bowel obstruction or dilatation. Normal appendix. Diverticulosis without diverticulitis. PELVIC ORGANS: Uterus and ovaries unremarkable for age. LYMPH NODES/RETROPERITONEUM/MESENTERY: No lymphadenopathy. No abdominal aortic aneurysm. ABDOMINAL WALL: Small fat containing umbilical hernia. FREE FLUID: No ascites. BONES: No acute osseous abnormality. IMPRESSION: No acute abnormality in the abdomen or pelvis. Reviewed, Interpreted and Dictated by Erum Fishman MD Transcribed by Kathia Mayberry Authenticated and . [facility]
[2024-07-29 11:06] LABS: Lipase 72 U/L (23-300)
[2024-07-29] MEDS: IOPAMIDOL-370 (76%);100ML BOTTLE 75 ML IV (11:10)
[2024-07-29] MEDS: SODIUM CHLORIDE 0.9% 10ML FLUSH SYRINGE 10 ML IV (11:10)
[2024-07-29 11:22] LABS: Lactic Acid 1.4 mmol/L (0.7-2.1)
--- NOTE | 2024-08-07 11:06 | PC.NURSE ---
urine culture has no growth, ntd
== END 2024-07-29 13:02 | disposition home or self-care (01) ==
PROVIDERS: Nurse Practitioner; Emergency Provider Student in an Organized Health Care Education/Training Program; PCP Nurse Practitioner Family
DX: R10.30 Lower abdominal pain, unspecified (principal); R30.0 Dysuria
CPT/HCPCS: 74177; 80053; 81001; 83605; 83690; 85025; 87086; 99284; Q9967

== ENCOUNTER 2025-01-15 08:40 | Emergency (ER) | payer SELFPAY ==
[2025-01-15 08:52] VITALS: BP 194/105; PULSE 94; RESP 18; TEMP 36.8; O2SAT 98; BMI 40.2
--- NOTE | 2025-01-15 09:00 | ECG_ITS ---
APPROVED REPORT Exam: Resting ECG HR:80 bpm ECG Measurements Heart Rate 80 AXES MD 157 P 36 QRSd 89 QRS -11 QT 357 T 33 QTc 393 Conclusion SINUS RHYTHM LOW QRS VOLTAGE IN PRECORDIAL LEADS [QRS DEFLECTION < 1.0 mV IN CHEST LEADS] MINIMAL VOLTAGE CRITERIA FOR LVH, CONSIDER NORMAL VARIANT [MEETS CRITERIA IN ONE OF: R(aVL), S(V1), R(V5), R(V5/V6)+S(V1)] POSSIBLE ANTERIOR MYOCARDIAL INFARCTION , PROBABLY OLD [30 ms Q WAVE IN V3/V4, OR R < 0.2 mV IN V4] BORDERLINE ECG UNCONFIRMED REPORT Electronically signed by : KOSTA BELLA, 01/16/2025 06:45:32
--- OUTSIDE RECORDS SUMMARY | 2025-01-15 09:00 | XMS_ITS | Clinical Summary ---
Author Organization Healthcare Address [address] [place] [address] Care Team Providers Care Vehicle Care Specialist Name Role Phone Cyn Reyes APRN Primary Care Provider [phone] Family History Medical History Relation Name Comments Diabetes Father Heart attack Father Rheum arthritis Father Asthma Mother Conversions - Other Mother Rheumato id arteritis Emphysema Mother Relation Name Status Comments Father Mother Social History Tobacco Use Types Packs/Day Years Used Date Smoking Tobacco: Never Alcohol Use Standard Drinks/Week Comments No 0 (1 standard drink = 0.6 oz pur e alcohol) Comments Unknown Sex and Gender Information Value Date Recorded Sex Assigned at Not on file Legal Sex Female 8:35 PM EDT Gender Identity Not on file Sexual Orientation Not on file Last Filed Vital Signs Vital Sign Reading Time Taken Comments Blood Pressure 221/93 10/16/2018 2:26 PM EDT Pulse 88 10/16/2018 2:26 PM EDT Temperature 36.9 C (98.5 F) 10/16/2018 2:26 PM EDT Respiratory Rate 20 10/16/2018 2:26 PM EDT Oxygen Saturation - - Inhaled Oxygen Concentration - - Weight 105 kg (231 lb 6 oz) 10/16/2018 2:26 PM E DT Height 157.5 cm (5' 2 ) 10/16/2018 2:26 PM EDT Body Mass Index 42.32 10/16/2018 2:26 PM EDT Plan of Treatment Not on file Care Teams Vehicle Care Specialist Relationship Specialty Start Date End Date Cyn Reyes APRN [address] [facility] [place] [id number] PCP - General 08/07/20
[2025-01-15 09:01] VITALS: BP 186/84; PULSE 81; O2SAT 95
--- NOTE | 2025-01-15 09:10 | CT_ITS ---
FINAL REPORT TECHNIQUE: Noncontrast exam This study was performed with techniques to keep radiation doses as low as reasonably achievable, (ALARA). Individualized dose reduction techniques using automated exposure control or adjustment of mA and/or kV according to the patient''s size were employed. CLINICAL HISTORY: HTN, headache COMPARISON: 04/10/2014 FINDINGS: No abnormal density is seen. Ventricles are normal. There is no hemorrhage. No mass effect is seen. There is a 5 mm rounded density near the foramen of Lockhart, probably a colloid cyst which is similar in appearance since prior exam. There is no hydrocephalus. Bone windows show no evidence of fracture. IMPRESSION: No acute findings. 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 Reviewed, Interpreted and Dictated by Katrin Rosario MD Transcribed by Laila Guzman Authenticated and [facility]
--- NOTE | 2025-01-15 09:10 | XR_ITS ---
FINAL REPORT CLINICAL HISTORY: HTN, shortness of breath COMPARISON: 06/20/2017 FINDINGS: No acute pulmonary opacity is present. There is no evidence of effusion or pneumothorax. Mediastinum is unremarkable. Heart size is normal. IMPRESSION: No acute abnormality. Reviewed, Interpreted and Dictated by Katrin Rosario MD Transcribed by Laila Guzman Authenticated and . [facility]
--- NOTE | 2025-01-15 09:15 | HMH.EDGENADL ---
Discharge Plan Disposition Patient Disposition: Home, Self-Care Prescriptions Prescriptions: No Action hydrochlorothiazide 25 mg tablet 25 mg PO DAILY Qty: 90 2RF losartan 100 mg tablet 100 mg PO DAILY Qty: 90 2RF amlodipine 5 mg tablet 5 mg PO DAILY Qty: 30 2RF omeprazole 40 mg capsule,delayed release(DR/EC) 40 mg PO DAILY montelukast 10 mg tablet 10 mg PO DAILY nystatin 100,000 unit/gram cream 1 applic topical BID PRN (Reason: Rash) albuterol sulfate [Ventolin HFA] 90 mcg/actuation HFA aerosol inhaler 2 puff inhalation Q4-6H PRN (Reason: sob) Patient Comments: INHALE 2 PUFFS BY MOUTH EVERY 4 TO 6 HOURS NEEDED FOR SHORTNESS OF BREATH FOR WHEEZING levocetirizine [Xyzal] 5 mg tablet 5 mg PO HS PRN (Reason: allergies) cholecalciferol (vitamin D3) [Vitamin D3] 25 mcg (1,000 unit) capsule 25 mcg PO DAILY buspirone 10 mg tablet 10 mg PO BID Qty: 180 3RF Rx Instructions: Take 1 tab p.o. nightly x 14 days, then increase to 1 tab p.o. twice daily thereafter atorvastatin 40 mg tablet 40 mg PO DAILY Qty: 90 3RF aspirin [Adult Aspirin Regimen] 81 mg tablet,delayed release (DR/EC) 81 mg PO DAILY Qty: 90 3RF escitalopram oxalate 10 mg tablet See Rx Instructions .ROUTE .COMPLEX Qty: 90 3RF Dose Instruction: Take 1 tablet by mouth once daily Rx Instructions: Take 1 tablet by mouth once daily cholecalciferol (vitamin D3) 1,250 mcg (50,000 unit) capsule See Rx Instructions .ROUTE .COMPLEX Qty: 12 0RF Dose Instruction: Take 1 capsule by mouth once a week Rx Instructions: Take 1 capsule by mouth once a week Trelegy Ellipta 200-62.5-25 mcg blister with device See Rx Instructions .ROUTE .COMPLEX Qty: 180 0RF Dose Instruction: INHALE 1 PUFF ONCE DAILY Rx Instructions: INHALE 1 PUFF ONCE DAILY metoprolol succinate 100 mg tablet extended release 24 hr See Rx Instructions .ROUTE .COMPLEX Qty: 90 0RF Dose Instruction: Take 1 tablet by mouth once daily Rx Instructions: Take 1 tablet by mouth once daily nystatin 100,000 unit/gram powder 1 applic topical TID PRN (Reason: yeast) Qty: 60 0RF ondansetron 4 mg Tablet,Disintegrating 4 mg PO Q8H PRN (Reason: Nausea) Qty: 12 0RF Referrals Follow up/Referrals: Jluis Burrows APRN [Primary Care Provider, Family Practice] - See instructions Activity Restrictions/Add. Instructions Additional Instructions/Restrictions: You have an appointment with Dr. Hanks tomorrow at 10:40am. It is important you make this appointment as your blood pressure needs to be better controlled. Continue your home medications as prescribed in the meantime. If you develop any new or worsening symptoms such as blurry vision, chest pain, shortness of breath, abdominal pain, or if you become concerned for your health for any reason, return to the emergency department for evaluation. You were incidentally noted to have a small colloid cyst in the brain. I do not feel that this is contributing to your symptoms at this time but will need to be monitored by your primary care doctor. Clinical Impressions Clinical Impression: Hypertension, Headache, Colloid cyst of brain Print Language Print Language: Korean Discharge ED Provider: Junito Pearce General Adult HPI General Chief complaint: Headache Stated complaint: L facial numb, left arm tingling, headache, vomit Time Seen by Provider: 01/15/25 09:01 Mode of Arrival: Ambulatory Source of Information: Patient Description of Symptoms (Recalled from ER Triage Doc. by RN): PATIENT PRESENTS TO ED FOR HYPERTENSION WELL HEADACHE. PT REPORTS SHE HAS HAD BP ISSUES FOR MONTHS AND STATES THE LEFT SIDE OF HER FACE BECOMES NUMB SOMETIMES. REPORTS HEADACHE 7/10. History of Present Illness HPI narrative: Mahnaz Rodríguez is a 59y female with a history of hypertension (on amlodipine, hydrochlorothiazide, losartan, metoprolol), obesity, GERD, anxiety, coronary artery disease, who presents to the emergency department for complaints of headache in the setting of high blood pressure. Patient states that over the last 2 weeks, she has had high blood pressures at home, with systolic blood pressures measuring 201 at times but have been in the 170-180 range. She states that prior to this her normal was approximately 140 systolic. She states that she has been taking her medications as prescribed and has not had any changes to them recently. Over the last 2 weeks, she has had a left-sided headache but denies any vision changes or chest pain. She does report some shortness of breath. She does report a history of asthma. She denies any abdominal pain but does state that she was nauseated and vomited yesterday. She has not had any fevers. Related Data Home Medications ?Medication ?Instructions ?Recorded ?Confirmed montelukast 10 mg tablet 10 mg PO DAILY 04/19/23 06/26/24 albuterol sulfate 90 mcg/actuation 2 puff inhalation Q4-6H PRN sob 04/18/24 06/26/24 aerosol inhaler (Ventolin HFA) nystatin 100,000 unit/gram topical 1 applic topical BID PRN Rash 04/18/24 06/26/24 cream cholecalciferol (vitamin D3) 25 25 mcg PO DAILY 06/05/24 06/26/24 mcg (1,000 unit) capsule (Vitamin D3) levocetirizine 5 mg tablet (Xyzal) 5 mg PO HS PRN allergies 06/05/24 06/26/24 omeprazole 40 mg capsule,delayed 40 mg PO DAILY 06/13/24 06/26/24 release Previous Rx's ?Medication ?Instructions ?Recorded nystatin 100,000 unit/gram topical 1 applic topical TID PRN yeast #60 12/19/22 powder grams ondansetron 4 mg disintegrating 4 mg PO Q8H PRN Nausea #12 tabs 05/07/23 tablet hydrochlorothiazide 25 mg tablet 25 mg PO DAILY #90 tabs 09/14/23 losartan 100 mg tablet 100 mg PO DAILY #90 tabs 09/14/23 escitalopram oxalate 10 mg tablet See Rx Instructions .Route 03/27/24 .COMPLEX #90 tabs amlodipine 5 mg tablet 5 mg PO DAILY #30 tabs 04/23/24 cholecalciferol (vitamin D3) 1,250 See Rx Instructions .Route 05/03/24 mcg (50,000 unit) capsule .COMPLEX #12 caps fluticasone fur. 200 mcg-umeclid See Rx Instructions .Route 05/08/24 62.5 mcg-vilant 25 mcg .COMPLEX #180 ea inhalat.powder (Trelegy Ellipta) metoprolol succinate 100 mg See Rx Instructions .Route 05/17/24 tablet,extended release 24 hr .COMPLEX #90 tabs buspirone 10 mg tablet 10 mg PO BID #180 tabs 06/05/24 aspirin 81 mg tablet,delayed 81 mg PO DAILY #90 tabs 06/26/24 release (Adult Aspirin Regimen) atorvastatin 40 mg tablet 40 mg PO DAILY #90 tabs 06/26/24 Allergies Allergy/AdvReac Type Severity Reaction Status Date / Time sulfamethoxazole (From Allergy Mild NAUSEATED Verified 06/26/24 10:49 Bactrim) trimethoprim (From Bactrim) Allergy Mild NAUSEATED Verified 06/26/24 10:49 adhesive Allergy Rash Verified 06/26/24 10:49 PFSH PFS Disclaimer: The information contained in this section may have been updated after the patient was seen, as this information can be updated by other users. Medical History (Updated 01/15/25 @ 11:34 by Junito Pearce MD) Breast cancer screening CAD (coronary artery disease) Colon cancer screening Lipoma of right upper extremity Murmur Asthma GERD (gastroesophageal reflux disease) Hypertension Refill clinic medication management patient Surgical History H/O colonoscopy History of esophagogastroduodenoscopy (EGD) H/O repair of right rotator cuff History of tubal ligation Family History Other Family history of asthma Family history of diabetes mellitus Family history of heart disease Social History Smoking Status: Never smoker alcohol intake: never substance use type: denies use current occupational status: employed Travel in the last 8 weeks?: Inside the [place] household members: family housing: house caffeine: Yes Other Medical History Have you received the Flu Vaccine for this season: No Have you received the Pneumonia Vaccine: Yes ROS Obtained: Yes Systems reviewed as appropriate & no additional complaints except as documented Physical Exam General General appearance: alert and in no apparent distress Head Head exam: atraumatic Eye Eye exam: Present normal appearance, PERRL and EOMI ENT ENT exam: Present normal external ear exam Neck Neck exam: Present full ROM Chest Chest inspection: Present symmetric chest wall rise Respiratory Respiratory exam: Present normal lung sounds bilaterally; Absent respiratory distress, wheezes or stridor Cardiovascular Cardiovascular exam: Present regular rate and normal rhythm Abdominal Exam Abdominal exam: Present soft; Absent tenderness or guarding Extremities Exam Extremities exam: Present normal inspection Back Exam Back exam: Present normal inspection Neurological Exam Neurological exam: Present alert, oriented X3 and CN II-XII intact (Mild decrease sensation over the left maxillary sinus area); Absent motor sensory deficit Psychiatric Psychiatric exam: Present normal affect Skin Skin exam: Present warm and dry Medical Decision Making Medical Records Screening: Per USPSTF and CDC recommendations, given the prevalence of disease in our region, it is our hospital?s policy to screen for HIV and viral Hepatitis for all patients aged 18 and over and those with ongoing risk factors. Antoni Inquiry Pt receiving controlled substance: No Vital Signs: 01/15/25 08:52 01/15/25 08:52 01/15/25 09:01 Temperature 98.3 F 98.3 F Temperature Source Oral Pulse Rate 94 H 81 Pulse Rate [Left] 94 H Respiratory Rate 18 18 Blood Pressure 194/105 H 186/84 H Blood Pressure [Right Arm] 194/105 H Blood Pressure Mean [Right Arm] 134 02 Sat by Pulse Oximetry 98 98 95 01/15/25 10:01 01/15/25 11:29 Temperature 98.2 F Temperature Source Pulse Rate 86 78 Pulse Rate [Left] Respiratory Rate 18 Blood Pressure 174/93 H 168/83 H Blood Pressure [Right Arm] Blood Pressure Mean [Right Arm] 02 Sat by Pulse Oximetry 94 L Lab Data Lab Results 01/15/25 08:45: WBC 7.7, RBC 4.93, Hgb 13.4, Hct 43.0, MCV 87.2, MCH 27.2, MCHC 31.2 L, RDW 15.5, Plt Count 315, MPV 10.4, Neut % (Auto) 62.4, Lymph % (Auto) 23.5, [place] % (Auto) 9.1, Eos % (Auto) 2.6, Baso % (Auto) 1.0, Neut # (Auto) 4.8, Lymph # (Auto) 1.8, [place] # (Auto) 0.7, Eos # (Auto) 0.2, Baso # (Auto) 0.1, Sodium 139, Potassium 3.8, Chloride 106, Carbon Dioxide 27, Anion Gap 9.8, BUN 12, Creatinine 0.40 L, Estimated Creat Clear 93, Estimated GFR 162, Est GFR ( Amer) 196, Glucose 107 H, Calcium 8.5, Total Bilirubin 0.5, AST 34, ALT 20, Alkaline Phosphatase 125, Troponin I < 0.01, NT-Pro-B Natriuret Pep 113, Total Protein 6.9, Albumin 3.9, Globulin 3.0, Albumin/Globulin Ratio 1.3, Urine Color Yellow, Urine Appearance Clear, Urine pH 7.0, Ur Specific [place] 1.010, Urine Protein Negative, Urine Glucose (UA) Negative, Urine Ketones Negative, Urine Blood Negative, Urine Nitrate Negative, Urine Bilirubin Negative, Urine Urobilinogen 0.2, Ur Leukocyte Esterase Negative, Urine RBC None, Urine WBC None, Ur Squamous Epith Cells 10-20, Urine Bacteria Trace 01/15/25 08:45 01/15/25 08:45 Orders (Tests/Meds): ED MEDICATIONS Discontinued Medications Generic Name Dose Route Start Last Admin Trade Name Freq PRN Reason Stop Dose Admin Amlodipine Besylate 5 mg 01/15/25 09:56 01/15/25 10:08 Amlodipine 5mg Tablet PO 01/15/25 09:57 5 mg ONCE ONE Administration Magnesium Sulfate 2 gm in 50 mls @ 50 mls/hr 01/15/25 09:10 01/15/25 10:41 Magnesium Sulfate 2gm/50ml Premix IV 01/15/25 10:09 Infused ONCE ONE Infusion Lactated Ringer's 1,000 mls @ 999 mls/hr 01/15/25 09:10 01/15/25 10:40 Lactated Ringer's 1000 Ml Bag IV 01/15/25 10:10 Infused .Q1H1M ONE Infusion Ketorolac Tromethamine 15 mg 01/15/25 10:04 01/15/25 10:09 Ketorolac 15mg/Ml Vial IV 01/15/25 10:05 15 mg ONCE ONE Administration ORDERS Category Date Time Status CT head/brain wo con Stat Cat Scan 01/15/25 09:10 Completed CXR --portable [XR chest portable] Stat Exams 01/15/25 09:10 Completed BNP [NT Pro Brain Natriuretic Pep.] Stat Lab 01/15/25 08:45 Completed CBC w/Auto Diff [Complete Blood Count Auto Diff] Stat Lab 01/15/25 08:45 Completed CMP [Comprehensive Metabolic Panel] Stat Lab 01/15/25 08:45 Completed Troponin I Q3H Lab 01/15/25 12:15 Ordered Troponin I Q3H Lab 01/15/25 15:15 Ordered Troponin I Stat Lab 01/15/25 08:45 Completed UA [Urinalysis and Microscopic] Stat Lab 01/15/25 08:45 Completed ECG Data Tracing #1: I reviewed this ECG and interpreted as documented below: Normal sinus rhythm. No ST elevation or depression. QTc normal at 393 Medical Decision Narrative: Mahnaz Rodríguez is a 59y female with a history of hypertension (on amlodipine, hydrochlorothiazide, losartan, metoprolol), obesity, GERD, anxiety, coronary artery disease, who presents to the emergency department for complaints of headache in the setting of high blood pressure. Patient states that over the last 2 weeks, she has had high blood pressures at home, with systolic blood pressures measuring 201 at times but have been in the 170-180 range. She states that prior to this her normal was approximately 140 systolic. She states that she has been taking her medications as prescribed and has not had any changes to them recently. Over the last 2 weeks, she has had a left-sided headache but denies any vision changes or chest pain. She does report some shortness of breath. She does report a history of asthma. She denies any abdominal pain but does state that she was nauseated and vomited yesterday. She has not had any fevers. On arrival, patient's initial blood pressure elevated at 194/105, borderline tachycardic with heart rate of 94 but improved to the mid 80s without intervention. Oxygen saturation 98% on room air. Afebrile. Physical exam, stated above, revealed an overall well-appearing female in no distress. She is alert and answering questions appropriately. Cardiopulmonary exam is unremarkable. Abdomen is soft, nontender nondistended. Neuroexam shows normal cranial nerves II through XII, however she does have some mild decrease sensation over the left maxillary sinus area. Strength and sensation intact throughout all extremities. Patient does appear anxious. Pupils equal round and reactive to light. Differential diagnosis includes, but is not limited to: Tension headache, hypertensive emergency, ACS, intracranial hemorrhage, among others. The most morbid conditions were considered and workup was based on these. Workup in the emergency department clued: CT head without contrast, CBC with differential, CMP, troponin, BNP, EKG, urinalysis, chest x-ray. Patient was treated initially with 1 L lactated ringer, 2 g IV magnesium sulfate EKG without evidence of ischemia. See interpretation above Workup is grossly unremarkable nonactionable. CBC without leukocytosis or anemia. Electrolytes within normal limits. No CRISTY. Troponin less than 0.01. Liver enzymes and bilirubin within normal limits. Urinalysis with no protein, no blood, no evidence of infection. CT imaging was interpreted by me personally. There is no intracranial hemorrhage, mass or midline shift. She does have an incidentally found small likely colloid cyst in the foramen of Lockhart but no evidence of hydrocephalus. She has no other exam findings or symptomatology consistent with hydrocephalus. I feel that this will likely need to be monitored over time and is unlikely to be contributing to her symptomatology currently. Patient remained hypertensive, however somewhat improved without intervention. Blood pressures in the 170s over 90s at this time. Will administer 5 mg of amlodipine. She is continue to have a headache. On reassessment, patient reported improvement in her headache. Her blood pressure has improved to 153/96. She has remained stable here in the emergency department. I do not feel that she has evidence of hypertensive emergency on today's workupBut would benefit from close follow-up with her primary care doctor to tightly control her blood pressure. We discussed this with her primary care office and she has an appointment tomorrow at 10:[address] Hanks. Patient states that she is able to make this appointment. Given this, I feel that she is appropriate for discharge at this time. Strict return precautions were given for any worsening symptoms, such as blurry vision, chest pain, shortness of breath, abdominal pain. She demonstrated understanding and was in agreement with this plan. She was then discharged from the emergency department in stable condition. Critical Care Critical Care Time Critical Care Time: No
[2025-01-15 09:18] LABS: Microscopic, Urine URINE MICROSCOPIC (MICROSCOPIC)
[2025-01-15 09:21] LABS: Bilirubin,Urine Negative (Negative); Color,Urine YELLOW (Yellow); Glucose,Urine (UA) Negative (Negative); Hematocrit 43.0 % (37.0-47.0); Hemoglobin 13.4 g/dL (12.2-16.2); Immature Granulocytes % 1.4 %; Ketones,Urine Negative (Negative); Leukocyte Esterase,Urine Negative (Negative); Mean Corpuscular HGB Conc 31.2 g/dL (31.8-35.4); Mean Corpuscular Hemoglobin 27.2 pg (27.0-31.2); Mean Corpuscular Volume 87.2 fl (81-99); Nucleated Red Blood Cells % 0 %; PH,Urine 7.0 (5.0-8.5); Platelet Count 315 K/mm3 (142-424); Protein,Urine Negative (Negative); Red Blood Count 4.93 M/mm3 (4.20-5.40); Red Cell Distribution Width-SD 49.2 fL; Specific Gravity, Urine 1.010 (1.005-1.030); Urobilinogen,Urine 0.2 EU/dl (0.2); White Blood Count 7.7 K/mm3 (4.8-10.8)
[2025-01-15 09:22] LABS: Albumin Level 3.9 g/dl (3.5-5.0); Chloride 106 mmol/L (98-107); Potassium 3.8 mmoL/L (3.5-5.1); Sodium 139 mmol/L (136-145)
[2025-01-15 09:24] LABS: Bacteria,Urine Trace /lpf; Blood Urea Nitrogen 12 mg/dl (7-17)
[2025-01-15 09:25] LABS: Alanine Aminotransferase 20 U/L (12-78); Albumin/Globulin Ratio 1.3 (1.1-1.8); Alkaline Phosphatase 125 U/L (38-126); Anion Gap 9.8 mEq/L (5-15); Aspartate Amino Transferase 34 U/L (14-36); Bilirubin,Total 0.5 mg/dl (0.2-1.3); Calcium 8.5 mg/dl (8.4-10.2); Carbon Dioxide 27 mmol/L (22.0-30.0); Creatinine Clearance Estimated 93 mL/min (50-200); Creatinine,Serum 0.40 mg/dl (0.52-1.04); Estimated Glomerular Filt Rate 162 ml/min (>60); GFR (African American) 196 ML/MIN (>60); Globulin 3.0 g/dL (1.3-3.2); Glucose 107 mg/dl (74-100); Total Protein,Serum 6.9 g/dl (6.3-8.2)
[2025-01-15] MEDS: LACTATED RINGERS 1000ML 1,000 ML 999 ML IV (09:29)
[2025-01-15] MEDS: MAGNESIUM SULFATE IN WATER 2 GM/50 ML PIGGYBACK IV (09:30)
[2025-01-15 09:35] LABS: NT Pro Brain Natriuretic Pep. 113 pg/mL (0-125)
[2025-01-15 09:56] LABS: Troponin I < 0.01 ng/ml (0.00-0.034)
[2025-01-15 10:01] VITALS: BP 174/93; PULSE 86; O2SAT 94
[2025-01-15] MEDS: AMLODIPINE 5MG TABLET 5 MG PO (10:08)
[2025-01-15] MEDS: KETOROLAC 15MG/ML VIAL 15 MG IV (10:09)
[2025-01-15 11:29] VITALS: BP 168/83; PULSE 78; RESP 18; TEMP 36.8; O2SAT 97
== END 2025-01-15 11:41 | disposition home or self-care (01) ==
PROVIDERS: Emergency Provider Student in an Organized Health Care Education/Training Program; PCP Nurse Practitioner Family
DX: R51.9 Headache, unspecified (principal); R20.0 Anesthesia of skin; R06.02 Shortness of breath; I10 Essential (primary) hypertension; G93.0 Cerebral cysts; I25.10 Atherosclerotic heart disease of native coronary artery without angina pectoris; K21.9 Gastro-esophageal reflux disease without esophagitis
CPT/HCPCS: 70450; 71045; 80053; 81001; 83880; 84484; 85025; 93005; 96365; 96375; 99285; J1885; J3475; J7120